=== PATIENT | female | born 1940 | race Caucasian/White ===

== ENCOUNTER → 2017-09-19 13:11 | Outpatient (CLI) | payer MEDICARE, BC, SELFPAY ==
--- NOTE | 2017-09-19 | DI.MG.S_ITS ---
BILATERAL DIGITAL SCREENING MAMMOGRAM 3D/2D WITH CAD: 09/19/2017 CLINICAL: Routine screening. Comparison is made to exams dated: 09/02/2016 mammogram, 09/02/2015 mammogram, and 05/16/2014 mammogram - [facility]. The tissue of both breasts is heterogeneously dense. This may lower the sensitivity of mammography. Current study was also evaluated with a Computer Aided Detection (CAD) system. There is a calcification in the left breast at 8 o'clock anterior depth. No other significant masses, calcifications, or other findings are seen in either breast. IMPRESSION: INCOMPLETE: NEEDS ADDITIONAL IMAGING EVALUATION The calcification in the left breast is indeterminate. Mediolateral, spot magnification, and additional views are recommended. This exam was interpreted at Station ID: [id number]. NOTE: For mammograms, a report in lay terms will be sent to the patient. Approximately 15% of breast malignancies will not be visualized mammographically. In the management of a palpable breast mass, a negative mammogram must not discourage biopsy of a clinically suspicious lesion. Electronically Signed By: Jt hanna/abel:09/19/2017 15:01:20 copy to: Brina Coulter letter sent: Additional Imaging Needed ACR BI-RADS Category 0: Incomplete [id number]
== END ==
PROVIDERS: Family Provider Internal Medicine; PCP Internal Medicine; Visit Provider Physician Assistant
DX: Z12.31 Encounter for screening mammogram for malignant neoplasm of breast (principal); R92.8 Other abnormal and inconclusive findings on diagnostic imaging of breast
CPT/HCPCS: 77063; 77067

== ENCOUNTER → 2017-09-30 08:42 | Outpatient (CLI) | payer MEDICARE, BC, SELFPAY ==
--- NOTE | 2017-09-30 | DI.MG.S_ITS ---
UNILATERAL LEFT DIGITAL DIAGNOSTIC MAMMOGRAM 3D/2D WITH ADDITIONAL VIEWS: 09/30/2017 CLINICAL: Additional evaluation requested from prior study. Comparison is made to exams dated: 09/19/2017 mammogram, 09/02/2016 mammogram, and 09/02/2015 mammogram - [facility]. The tissue of the left breast is heterogeneously dense. This may lower the sensitivity of mammography. Prior calcifications in the left breast are no longer present. No significant masses, calcifications, or other findings are seen in the breast. IMPRESSION: NEGATIVE There is no mammographic evidence of malignancy. A 1 year screening mammogram is recommended. This exam was interpreted at Station ID: [id number]. NOTE: For mammograms, a report in lay terms will be sent to the patient. Approximately 15% of breast malignancies will not be visualized mammographically. In the management of a palpable breast mass, a negative mammogram must not discourage biopsy of a clinically suspicious lesion. Electronically Signed By: Josue moya/abel:09/30/2017 12:31:42 copy to: Brina Coulter letter sent: Normal Exam ACR BI-RADS Category 1: Negative [id number]
== END ==
PROVIDERS: Family Provider Internal Medicine; PCP Internal Medicine; Visit Provider Physician Assistant
DX: R92.1 Mammographic calcification found on diagnostic imaging of breast (principal)
CPT/HCPCS: 77065; G0279

== ENCOUNTER 2017-12-19 23:52 | Observation (INO) | payer MEDICARE, BC, SELFPAY ==
[2017-12-19 23:55] VITALS: BP 178/89; PULSE 89; RESP 20; TEMP 36.4; O2SAT 98
[2017-12-20] VITALS (7 sets, daily range): BP systolic 119–155; BP diastolic 62–83; PULSE 73–80; RESP 15–22; TEMP 36.6–37.4; O2SAT 95–99; BMI 22.1
--- NOTE | 2017-12-20 | DI.MRI.S_ITS ---
PROCEDURE: MR ANGIO HEAD WO CON INDICATIONS: Syncope TECHNIQUE: Noncontrast axial 3-D [id number] MR angiogram, with 3-dimensional maximum intensity projection (MIP) reformats of the internal carotid arteries and posterior circulation then performed. COMPARISON: None. FINDINGS: Image quality: Excellent. Anterior circulation: Intracranial internal carotid arteries demonstrate normal size and intraluminal flow signal. The flow within the paired anterior cerebral arteries is normal and symmetric. The flow within the middle cerebral arteries is normal and symmetric. The anterior communicating artery is seen. No stenoses, occlusions, or aneurysms. Posterior circulation: Visualized portions of the vertebral arteries demonstrate normal caliber, and join to form a normal appearing basilar artery. The flow within the posterior cerebral arteries is normal and symmetric. No stenoses, occlusions, or aneurysms. IMPRESSION: Negative cerebral MR angiography. Dictated by: Froy Uribe M.D. on 12/20/2017 at 11:43 Approved by: Froy Uribe M.D. on 12/20/2017 at 11:45
--- NOTE | 2017-12-20 | DI.MRI.S_ITS ---
PROCEDURE: MR ANGIO NECK W CON INDICATIONS: Syncope TECHNIQUE: Axial and sagittal TruFISP through the neck. Coronal dynamic MRA after the administration of contrast in the arterial and venous phases, with rotating 3-dimensional maximum intensity projection (MIP) reformats constructed from subtraction images. COMPARISON: None. FINDINGS: Image quality: Excellent. Carotid system: Great vessels demonstrate a conventional anatomy as they arise from the aortic arch. The origins of the common carotid arteries appear normal. The calibers and courses of the common carotid arteries are likewise normal. The carotid bifurcations appear normal bilaterally. The internal carotid arteries are widely patent up to the [place]. Posterior circulation: The origins of the vertebral arteries are unremarkable. The more superior portions of the vertebral arteries demonstrate normal course and caliber. Vertebral arteries join to form a normal appearing basilar artery. Miscellaneous: Subclavian arteries are patent throughout. Pre-contrast images through the neck demonstrate no soft tissue abnormalities. IMPRESSION: 1. No internal carotid artery stenosis bilaterally. 2. Patent bilateral vertebral arteries. Any quantitative measurements of stenosis were performed using NASCET criteria. Dictated by: Froy Uribe M.D. on 12/20/2017 at 11:45 Approved by: Froy Uribe M.D. on 12/20/2017 at 11:46
--- NOTE | 2017-12-20 | DI.RAD.S_ITS ---
PROCEDURE: XR CHEST 1V INDICATIONS: syncope TECHNIQUE: One view of the chest was acquired. COMPARISON: [facility], , CHEST 1 VIEW, 04/30/2016, 18:15. [facility], CR, CHEST 1 VIEW, 04/27/2016, 4:20. [facility], CT, THORAX WITH CONTRAST, 09/26/2015, 9:16. [facility], , CHEST 1 VIEW, 09/04/2015, 10:35. FINDINGS: Surgical changes and devices: None. Lungs and pleura: No pleural effusions or pneumothorax. Lungs are clear. Mediastinum: Mediastinal contours appear normal. Heart size is normal. Bones and chest wall: No suspicious bony lesions. Overlying soft tissues appear unremarkable. IMPRESSION: No acute cardiopulmonary disease process. Dictated by: Francesca Lloyd MD, PhD on 12/20/2017 at 9:07 Approved by: Francesca Lloyd MD, PhD on 12/20/2017 at 9:10
--- NOTE | 2017-12-20 | DI.CT.S_ITS ---
PROCEDURE: CT HEAD/BRAIN WO CON INDICATIONS: head injury, + etoh, persistent nausea, headache TECHNIQUE: Noncontrast 4.5 mm thick angled axial sections acquired from the foramen magnum to the vertex, with coronal and sagittal reformats. For radiation dose reduction, the following was used: automated exposure control, adjustment of mA and/or kV according to patient size. COMPARISON: None. FINDINGS: Image quality: Excellent. CSF spaces: Basal cisterns are patent. No extra-axial fluid collections. The ventricles are symmetric in size and shape. Brain: No intracranial bleeds or masses. There is cerebral volume loss for age, with resultant ventricular and sulcal prominence. There are periventricular and deep white matter chronic small vessel ischemic changes. There is intracranial internal carotid artery atherosclerosis. Skull and face: Calvarium and visualized facial bones appear intact, without suspicious lesions. Large right parietal occipital scalp hematoma noted. Sinuses: Visualized sinuses and mastoids are clear. IMPRESSION: No acute intracranial disease process. Dictated by: Francesca Lloyd MD, PhD on 12/20/2017 at 7:43 Approved by: Francesca Lloyd MD, PhD on 12/20/2017 at 7:45
--- NOTE | 2017-12-20 00:05 | ED.SYNCOPE ---
HPI - Syncope General Chief Complaint: Syncope Stated Complaint: Syncope in shower/ Hit head Time Seen by Provider: 12/20/17 00:00 Source: patient, family and EMS Mode of arrival: EMS Limitations: no limitations History of Present Illness HPI narrative: A 77-year-old female presents to the emergency department by EMS for evaluation of an unprovoked syncopal episode in the absence of a postictal phase just prior to her arrival. The patient felt completely fine all day and was taking a shower, she felt a bit funny and called for help and then woke up laying on the ground. Her states she was unconscious for approximately 1 min. As stated she had no postictal phase and complained only of occipital headache after striking her head on the ground. She denies blurry vision, trouble with speech or focal neurologic findings such as numbness, tingling or weakness. She denies any midline neck pain or distracting injuries. She denies use of blood thinners and had 1 alcoholic beverage earlier in the day. She did have 1 similar episode of near syncope about 1 year ago with an unremarkable evaluation MD complaint: loss of consciousness Onset (ago): minute(s) Duration of episode: 1 -: minutes(s) Prodromal symptoms: lightheaded Witnessed: yes - by bystander Injuries sustained associated with event: head Current symptoms: other (dizziness) History: previous syncopal episode Treatments prior to arrival: IV fluids Related Data Home Medications Medication Instructions Recorded Confirmed [THYROXINE] 25 mcg PO QDAY #0 06/08/17 acyclovir 400 mg PO QDAY #0 06/08/17 Previous Rx's Medication Instructions Recorded lisinopril [Prinivil] 20 mg PO QDAY #90 02/08/12 estradiol [Estrace] 1 gm VAGINAL Q DAY #1 tube 03/05/16 estradiol [Vagifem] 10 mcg VAGINAL SEE INSTRUCTIONS 03/05/16 #30 tab escitalopram oxalate [Lexapro] 10 mg PO QDAY #30 tab 04/29/16 ondansetron 4 mg SUBLINGUAL Q4HP PRN #30 odt 04/29/16 alprazolam 0 mg PO Q12HP PRN #10 tab 04/30/16 pantoprazole [Protonix] 40 mg PO QDAY #30 tab 04/30/16 clobetasol 1 sarahy TOPICAL QAM #30 gm 07/21/16 acyclovir 400 mg PO BID #180 tab 06/13/17 Allergies Allergy/AdvReac Type Severity Reaction Status Date / Time codeine [CODEINE] Allergy Unknown NAUSEA Unverified 08/10/17 11:53 Penicillins [PENICILLINS] Allergy Unknown ITCH Unverified 08/10/17 11:53 Review of Systems Review of Systems All systems reviewed & are unremarkable except as noted in HPI and below Constitutional Denies chills, Denies fever(s), Reports headache(s), Denies lethargy and Denies weakness Eyes Denies change in vision, Denies eye discharge, Denies irritation and Denies loss of vision ENT Ears, Nose, Mouth, and Throat: Denies change in voice, Reports headache(s), Denies neck pain and Denies sore throat Cardiovascular Denies chest pain, Reports syncope, Denies irregular heart rhythm, Reports lightheadedness, Denies palpitations, Denies dyspnea, Denies dyspnea on exertion and Denies orthopnea Respiratory Denies cough, Denies dyspnea, Denies dyspnea on exertion and Denies wheezing Gastrointestinal Gastrointestinal: Denies abdominal pain, Denies change in bowel habits, Denies diarrhea, Denies nausea and Denies vomiting Genitourinary Denies hematuria, Denies flank pain, Denies urinary incontinence and Denies urinary urgency Musculoskeletal Denies neck pain Integumentary/Breasts Denies pruritus, Denies erythema, Denies rash and Denies wounds Neurologic Denies confusion, Reports syncope, Reports headache(s), Denies loss of vision and Denies weakness Psychiatric Denies anxiety, Denies confusion, Denies depression, Denies homicidal ideation and Denies suicidal ideation Endocrine Denies palpitations Hematologic/Lymphatic Denies easy bruising Allergic/Immunologic Denies wheezing Exam Initial Vital Signs Initial Vital Signs: Vital Signs Temperature 97.5 F L 12/19/17 23:55 Pulse Rate 89 12/19/17 23:55 Respiratory Rate 20 12/19/17 23:55 Blood Pressure 178/89 H 12/19/17 23:55 Pulse Oximetry 98 12/19/17 23:55 Const General: cooperative and well developed Nutritional Appearance: well nourished Orientation: alert, awake, oriented x3 and not confused HENMT Head: hematoma Ears: external ears normal and TM's normal bilaterally Nose: external nose normal and No nasal discharge Face and sinus: sinuses nontender, face symmetric, no sinus tenderness and No dry mucous membranes Mouth: oral mucosae normal and moist mucous membranes Teeth and gingiva: dentition normal Throat: tonsils normal and uvula midline Eyes General: appearance normal, both eyes and all related structures Eyelids: eyelids normal Conjunctivae: conjunctivae normal Sclera: sclerae normal Pupils: PERRL EOM: EOM intact bilaterally Neck Neck: normal visual inspection, trachea midline, No lymphadenopathy, No midline deformity and No JVD Lymphatic: No lymphedema Chest Chest: normal inspection of the chest Resp Effort & Inspection: normal respiratory effort, able to speak in complete sentences, no respiratory distress and no use of accessory muscles Auscultation: clear to auscultation bilaterally, no rales, no rhonchi and no wheezes Cardio Rate: regular rate Rhythm: regular rhythm Heart Sounds: no click, no gallops, no murmurs and no rubs Pulses: normal peripheral pulses GI Inspection: non-distended Palpation: soft, no hepatosplenomegaly, No guarding, No pulsatile mass and No tender Auscultation: normal bowel sounds Back/Spine/Pelvis Back: No CVA tenderness Cervical Spine: cervical ROM normal and No pain with cervical ROM Thoracic/Lumbar Spine: thoracic and lumbar spine normal to inspection Skin General: no rashes or lesions noted, No jaundice and No petechiae Neuro General: alert, oriented x3, gait normal and no focal motor deficits Speech: speech normal Extrem General: full ROM, no clubbing, cyanosis or edema, no pedal edema and no calf tenderness Psych Appearance: well kempt Mental Status: mental status grossly normal Attitude: cooperative Thought Content: normal and suicidality Judgment: judgment good Course Decision to Admit Date: 12/20/17 Decision to Admit time: 00:11 Orders Ordered: ED Orders 12/20/17 EKG-12 Lead Routine 12/20/17 00:00 CT head/brain wo con Stat XR chest 1V Stat EKG-12 Lead Stat 12/20/17 00:16 Complete Blood Count AUTO DIFF Stat Comprehensive Metabolic Panel Stat Magnesium Stat Prolactin Stat Troponin & CK Cardiac Panel Stat Discontinued Medications Acetaminophen (Tylenol) 650 mg PO NOW ONE Stop: 12/20/17 00:42 Last Admin: 12/20/17 00:43 Dose: 650 mg Sodium Chloride (Normal Saline 0.9%) 1,000 mls @ 1,000 mls/hr IV BOLUS ONE Stop: 12/20/17 00:59 Last Admin: 12/20/17 00:43 Dose: 1,000 mls/hr Vital Signs - 8 hr 12/19/17 23:55 Temperature 97.5 F L Pulse Rate 89 Respiratory Rate 20 Blood Pressure 178/89 H Pulse Oximetry 98 MDM - Syncope Differential Diagnosis Likely syncope due to orthostatic hypotension, vasovagal syncope, complete atrioventricular block, subarachnoid hemorrhage, pulmonary embolism and dehydration Medical Records Attestation: I reviewed the patient's medical records. Lab Data Attestation: I reviewed the patient's lab results. Result diagrams: 12/20/17 00:16 12/20/17 00:16 Lab Results 12/20/17 12/20/17 Range/Units 00:16 00:16 WBC 8.3 (4.5-11.0) X10^3/uL RBC 3.90 L (4.0-5.2) X10^6/uL Hgb 12.9 (12.0-16.0) g/dL Hct 38.3 (36-46) % MCV 98.0 (80-100) fL MCH 33.2 (26-34) PG MCHC 33.8 (30-36) % RDW 14.3 (11.6-14.8) % Plt Count 197 (150-400) X10^3/uL Neut % (Auto) 62.2 (50-75) % Lymph % (Auto) 26.9 (25-40) % [place] % (Auto) 7.6 (3-14) % Eos % (Auto) 2.5 (2-4) % Baso % (Auto) 0.8 (0-2) % Neut # (Auto) 5200 (3221-4457) /uL Sodium 138 (137-145) mmol/L Potassium 3.8 (3.4-5.1) mmol/L Chloride 99 (98-107) mmol/L Carbon Dioxide 29 (22-32) mmol/L BUN 16 (7-17) mg/dL Creatinine 0.90 (0.52-1.04) mg/dL Estimated GFR > 60.0 (>60) mL/min BUN/Creatinine Ratio 17.8 (6-22) Glucose 108 (80-110) mg/dL Calcium 9.4 (8.4-10.2) mg/dL Magnesium 2.0 (1.6-2.3) mg/dL Total Bilirubin 0.5 (0.2-1.3) mg/dL AST 35 (14-36) IU/L ALT 27 (9-52) IU/L Alkaline Phosphatase 95 (38-126) U/L Total Creatine Kinase 66 (30-135) U/L Troponin I < 0.012 (0.01-0.034) ng/mL Total Protein 8.1 (6.3-8.2) g/dL Albumin 4.5 (3.5-5.0) g/dL Globulin 3.6 (1.7-4.1) g/dL Albumin/Globulin Ratio 1.3 (1.0-2.8) Prolactin 28.8 H (3.0-18.6) ng/mL Imaging Data CT scan - head: Radiologist's impression: Scalp hematoma ECG Data Interpretation: NSR, no ST segmental elevation or T wave inversions to suggest ischemia Discharge Plan Departure Patient Disposition: Admitted as Observation Clinical Impression: Syncope Discharge Date/Time: 12/20/17 01:43 Admit Date/Time: 12/20/17 01:41 Admit Provider: Junior Buck
--- NOTE | 2017-12-20 00:19 | PC.NURSE ---
Pt reports during shower tonight felt faint, called for help, reports she collapsed upon his arrival, hit back of head, was out for a few minutes, on arrival to ED pt is alert/oriented, c/o posterior head pain, denies neck pain, no midline tenderness on exam, denies cp/soa/visual changes/nausea/numbness/tingling/or recent illness, NSR on monitor, skin tear to lt wrist dressed with telfa/coban
[2017-12-20 00:25] LABS: Add Manual Diff / Slide Review NO; Basophils Percent Auto 0.8 % (0-2); Eosinophils Percent Auto 2.5 % (2-4); Hematocrit 38.3 % (36-46); Hemoglobin 12.9 g/dL (12.0-16.0); Lymphocytes Percent Auto 26.9 % (25-40); Mean Corpuscular HGB Conc 33.8 % (30-36); Mean Corpuscular Hemoglobin 33.2 PG (26-34); Monocytes Percent Auto 7.6 % (3-14); Neutrophils Absolute Auto 5200 /uL (3000-5900); Neutrophils Percent Auto 62.2 % (50-75); Platelet Count 197 X10^3/uL (150-400); Red Cell Distribution Width 14.3 % (11.6-14.8); White Blood Cell Count 8.3 X10^3/uL (4.5-11.0)
[2017-12-20 00:33] LABS: Alanine Aminotransferase 27 IU/L (9-52); Albumin 4.5 g/dL (3.5-5.0); Albumin Globulin Ratio 1.3 (1.0-2.8); Alkaline Phosphatase 95 U/L (38-126); Aspartate Aminotransferase 35 IU/L (14-36); BUN Creatinine Ratio 17.8 (6-22); Bilirubin Total 0.5 mg/dL (0.2-1.3); Blood Urea Nitrogen 16 mg/dL (7-17); Calcium 9.4 mg/dL (8.4-10.2); Carbon Dioxide 29 mmol/L (22-32); Chloride 99 mmol/L (98-107); Creatine Kinase 66 U/L (30-135); Estimated Glomerular Filt Rate > 60.0 mL/min (>60); Globulin 3.6 g/dL (1.7-4.1); Glucose 108 mg/dL (80-110); HEMOLYSIS < 15 (0-50); Potassium 3.8 mmol/L (3.4-5.1); Sodium 138 mmol/L (137-145); Total Protein 8.1 g/dL (6.3-8.2)
[2017-12-20] MEDS: ACETAMINOPHEN 325 MG TABLET 650 MG PO ×2 (00:43→15:44)
[2017-12-20] MEDS: SODIUM CHLORIDE 0.9% 1,000 ML 1000 ML IV (00:43)
[2017-12-20 00:46] LABS: Troponin I < 0.012 ng/mL (0.01-0.034)
[2017-12-20 00:50] LABS: Prolactin 28.8 ng/mL (3.0-18.6)
--- NOTE | 2017-12-20 02:48 | P.HP_ITS ---
History of Present Illness Date Patient Seen: 12/20/17 Time Patient Seen: 01:15 Chief complaint: Syncope in shower/ Hit head Narrative: This is a 70-year-old female presented to the hospital after syncopal event approximately 1 hr prior to her arrival. Patient reports being in her usual state of health and while taking shower, sudden passed out and woke up lying on the ground with feeling of nausea and inability to get up unassisted. She believes that she may have hit back of her head, but denied biting her tongue, having voluntarily urination, vision or speech changes. She was able to call her for help and subsequently was brought to our hospital. Patient had similar event approximately 1 year ago, [place] airport experiencing near syncope requiring evaluation by paramedics who found her blood pressure being significantly elevated?. Subsequently she was cleared for the flight and upon arrival home per referral of PCP underwent Holter monitoring which presumably showed some ectopy ( skipped beats requiring use of oral metoprolol. Liver no new or recent changes in her medications, habits, also stressful events in the live. In retrospect, she acknowledged having strange sensation prior to this event yesterday as of she was going to faint, which was transient and resolved upon resting on the sofa. She admitted having 1 alcoholic beverage last night. Initial exam and testing in ED was significant for elderly female patient looking younger than the stated age. Her initial vital signs was significant for hypertension in excess of 170s systolic. Her general clinical exam was unremarkable, except for small possible hematoma on the back of her head, with stable sinus rhythm on clinical exam, telemetry and EKG which did not reveal any reason, a rate abnormalities. There were no signs to suggest cardiac ischemia as well. Her basic clinical lab were all within the normal range. Head CT was significant for scalp hematoma. Patient was admitted for further management to acute care unit on telemetry by hospitalist team. Patient History Medical History Depression with anxiety (Acute) GERD (gastroesophageal reflux disease) (Acute) History of hysterectomy (Acute) Hx of syncope (Acute) Hypertension (Acute) Hypothyroidism (Acute) Family & Social History Family History: Reviewed 12/20/17 by Junior Buck MD Social History: , lives independently with his Safety & Behavioral: Feels safe at home Tobacco & Substance use: Denies history of smoking, alcohol abuse or illicit drug use Meds Home Medications Medication Instructions Recorded Confirmed Type lisinopril [Prinivil] 20 mg PO QDAY #90 02/08/12 Rx estradiol [Estrace] 1 gm VAGINAL Q DAY #1 tube 03/05/16 Rx estradiol [Vagifem] 10 mcg VAGINAL SEE INSTRUCTIONS 03/05/16 Rx #30 tab escitalopram oxalate [Lexapro] 10 mg PO QDAY #30 tab 04/29/16 Rx ondansetron 4 mg SUBLINGUAL Q4HP PRN #30 odt 04/29/16 Rx alprazolam 0 mg PO Q12HP PRN #10 tab 04/30/16 Rx pantoprazole [Protonix] 40 mg PO QDAY #30 tab 04/30/16 Rx clobetasol 1 sarahy TOPICAL QAM #30 gm 07/21/16 Rx [THYROXINE] 25 mcg PO QDAY #0 06/08/17 History acyclovir 400 mg PO QDAY #0 06/08/17 History acyclovir 400 mg PO BID #180 tab 06/13/17 Rx Allergies Allergy/AdvReac Type Severity Reaction Status Date / Time codeine [CODEINE] Allergy Unknown NAUSEA Unverified 08/10/17 11:53 Penicillins [PENICILLINS] Allergy Unknown ITCH Unverified 08/10/17 11:53 Review of Systems Review of Systems All systems reviewed & are unremarkable except as noted in HPI and below Exam Vital Signs (past 8 hours): - 12/19/17 23:55 Temperature 97.5 F L Pulse Rate 89 Respiratory Rate 20 Blood Pressure 178/89 H Pulse Oximetry 98 Oxygen Delivery Method Room Air Narrative Exam Narrative: Constitutional: Well-nourished well-developed female looking younger than the stated age in mild distress. She is alert and oriented x3. HEENT: Unremarkable exam except for a small scalp hematoma on the back of her head Eyes: EOMI, PERRLA Neck: Supple, no lymphadenopathy, no jugular venous distention, no bruits on auscultation of the carotid arteries. Cardiovascular: Regular rhythm rate, no discernible murmurs Pulmonary: Clear to auscultation bilaterally, no rales ,no wheezing Abdomen: Soft, nontender, nondistended, bowel sounds present. No discernible organomegaly Extremities: Warm to touch, no edema Neurological: No focal neurological symptoms from cranial nerves 2-12 detected. Patient appears to be grossly neurologically intact. Skin: No skin rashes, no lesions. Objective Labs Result Diagrams: 12/20/17 00:16 12/20/17 00:16 Labs: Laboratory Results - last 24 hr 12/20/17 12/20/17 00:16 00:16 WBC 8.3 RBC 3.90 L Hgb 12.9 Hct 38.3 MCV 98.0 MCH 33.2 MCHC 33.8 RDW 14.3 Plt Count 197 Neut % (Auto) 62.2 Lymph % (Auto) 26.9 [place] % (Auto) 7.6 Eos % (Auto) 2.5 Baso % (Auto) 0.8 Neut # (Auto) 5200 Sodium 138 Potassium 3.8 Chloride 99 Carbon Dioxide 29 BUN 16 Creatinine 0.90 Estimated GFR > 60.0 BUN/Creatinine Ratio 17.8 Glucose 108 Calcium 9.4 Magnesium 2.0 Total Bilirubin 0.5 AST 35 ALT 27 Alkaline Phosphatase 95 Total Creatine Kinase 66 Troponin I < 0.012 Total Protein 8.1 Albumin 4.5 Globulin 3.6 Albumin/Globulin Ratio 1.3 Prolactin 28.8 H Assessment & Plan Plan: Assessment/Plan Narrative: 1. Syncope: Unclear etiology, with high level of suspicion for possible cardiogenic cause . Patient reports similar event approximately a year ago Which was significant for elevated blood pressure on the field, detection of ? skipped beats? on Holter monitoring x3 days, which required treatment with metoprolol (currently off). Medication induced syncope is also under consideration. Her current medications include lisinopril which could cause profound hypertension with subsequent syncope especially while taking hot shower. The Xanax known to cause seizures and syncopal events. Lexapro known to prolong QT interval, causes seizures and dizziness. Admit patient for observation to ACU unit on telemetry. Request echocardiogram , carotid Doppler, head MRI, EEG. Patient might need to be considered for repeat Holter monitoring or dizziness loop recorder implantation. Hold treatment with Lexapro and Xanax for now, restart lisinopril at low dose. 2. Hypertension: With elevated blood pressure readings during this encounter. Management as above. 3. Hypothyroidism: Restart treatment with Levoxyl at outpatient dose 4. Depression/anxiety: As above, hold outpatient treatment with Lexapro and Xanax. 5. GI prophylaxis: Proton pump inhibitors p.o. 6. DVT prophylaxis: Lovenox SC 7. Code status: Patient is a full code. Time Spent With Patient Time with patient: 25 - 35 minutes
[2017-12-20] MEDS: SODIUM CHLORIDE 0.9% 1,000 ML 100 ML IV (03:03)
[2017-12-20 04:48] LABS: Add Manual Diff / Slide Review NO; Basophils Percent Auto 0.4 % (0-2); Eosinophils Percent Auto 0.3 % (2-4); Hematocrit 37.7 % (36-46); Hemoglobin 12.7 g/dL (12.0-16.0); Lymphocytes Percent Auto 9.8 % (25-40); Mean Corpuscular HGB Conc 33.6 % (30-36); Mean Corpuscular Hemoglobin 32.8 PG (26-34); Mean Corpuscular Volume 97.7 fL (80-100); Monocytes Percent Auto 5.3 % (3-14); Neutrophils Absolute Auto 8800 /uL (3000-5900); Neutrophils Percent Auto 84.2 % (50-75); Platelet Count 182 X10^3/uL (150-400); Red Blood Cell Count 3.86 X10^6/uL (4.0-5.2); Red Cell Distribution Width 14.3 % (11.6-14.8); White Blood Cell Count 10.5 X10^3/uL (4.5-11.0)
[2017-12-20 04:49] LABS: Prothrombin Time 10.7 SECONDS (10.1-12.7)
[2017-12-20 04:53] LABS: Alanine Aminotransferase 19 IU/L (9-52); Albumin Globulin Ratio 1.2 (1.0-2.8); Alkaline Phosphatase 76 U/L (38-126); Aspartate Aminotransferase 32 IU/L (14-36); BUN Creatinine Ratio 17.5 (6-22); Bilirubin Total 0.5 mg/dL (0.2-1.3); Blood Urea Nitrogen 14 mg/dL (7-17); Calcium 8.9 mg/dL (8.4-10.2); Carbon Dioxide 27 mmol/L (22-32); Chloride 104 mmol/L (98-107); Estimated Glomerular Filt Rate > 60.0 mL/min (>60); Globulin 3.4 g/dL (1.7-4.1); Glucose 128 mg/dL (80-110); Potassium 4.1 mmol/L (3.4-5.1); Sodium 140 mmol/L (137-145); Total Protein 7.4 g/dL (6.3-8.2)
[2017-12-20] MEDS: PANTOPRAZOLE 20 MG TABLET PO (06:47)
[2017-12-20 06:50] LABS: Cholesterol 205 mg/dL (140-199); HDL Cholesterol 71 mg/dL (40-60); HEMOLYSIS 19 (0-50); LDL Cholesterol Calculated 117 mg/dL (<100); Triglycerides 85 mg/dL (35-150)
[2017-12-20 06:53] LABS: Troponin I < 0.012 ng/mL (0.01-0.034)
[2017-12-20] MEDS: ENOXAPARIN 40 MG/0.4 ML SYRINGE SUBCUT (09:55)
[2017-12-20] MEDS: LEVOTHYROXINE 25 MCG TABLET PO (09:55)
--- NOTE | 2017-12-20 11:53 | PT.IIE ---
Medical History (Last Updated 12/20/17 @ 02:35 by Junior Buck MD) Depression with anxiety (Acute) GERD (gastroesophageal reflux disease) (Acute) History of hysterectomy (Acute) Hx of syncope (Acute) Hypertension (Acute) Hypothyroidism (Acute) Physical Therapy Inpatient Evaluation/Re-Eval M1 PT/OT-IP Prior Functional Status Start: 12/20/17 12:05 Freq: NEEDED Status: Active Protocol: Document 12/20/17 11:53 DLM (Rec: 12/20/17 12:17 DL [id number]) Medical Review Prior Functional Status Medical History Reviewed Yes Diet/Fluid Consistency Regular Communication WNL, wears glasses to read Mobility and Gait Independent without device, community distances Activities of Daily Living and IADL's Independent Prior Functional Level (Other details) takes precautions to prevent falls Social History Household Members significant other Living Arrangements House Number of Floors (Floors) Two Floors Number of Stairs To Enter/Railing? 0 to enter Home Environment Standard Height Toilet Walk in Shower Employment Status Retired Additional Social History Comment stays mostly on the main floor of home, does not have to go to lower level. M2 PT-IP Current Condition Start: 12/20/17 12:05 Freq: NEEDED Status: Active Protocol: Document 12/20/17 11:53 DLM (Rec: 12/20/17 12:17 DL [id number]) Physical Therapy Current Condition Current Condition Evaluation Date 12/20/17 Treatment Diagnosis decreased balance, dizziness Onset Date 12/20/17 Precautions Other Precautions hx of syncope or near syncope with diagnosis of anxiety per pt report M3 PT-IP Subjective Start: 12/20/17 12:05 Freq: NEEDED Status: Active Protocol: Document 12/20/17 11:53 DLM (Rec: 12/20/17 12:17 DL [id number]) Subjective Physical Therapy Visit Type Type Initial Evaluation Visit Start Time 11:25 Visit Stop Time 11:53 Total Visit Minutes [address]ER Visits 0 Physical Therapy Visit Comments Patient Comments She feels like she will be safe at home with her S.O. there to help her. Short Term Goals return home at discharge Therapy Pain Assessment Pain When Pain Assessed At Rest Pain Present Pain Present Pain Reported Location Head Intensity 3 Scale Used Numeric (1 - 10) Description Aching M4 PT-IP Mobility and Gait Start: 12/20/17 12:05 Freq: NEEDED Status: Active Protocol: Document 12/20/17 11:53 DLM (Rec: 12/20/17 12:17 [facility] [id number]) PT-Bed Mobility Assessment Rolling Type of Rolling Bilateral Level of Assist Independent Supine to Sit Supine to Sit Independent Sit to Supine Sit to Supine Independent Scooting Scooting to Edge of Bed Independent Scooting Up and Down in Bed Independent PT-Transfer Assessment Sit to and From Stand Sit to and from Stand Independent Equipment Transfer Assistive Device None Transfers Transfer Destination Bed Transfer Technique Stand Step Pivot Transfer Ability Level of Assist Standby Assistance Use of Upper Extremities Comments Mobility Comments pt reports feeling a little shakey today Gait Assessment Gait Gait Assistance Required: Standby Assistance Distance (Feet) (feet) 250 Assistive Devices Assistive Device None Comments Gait Comments mild unsteadiness during gait but no losses of balance, pt is cautious PT-Balance Assessment Sitting Balance and Reactions Static Sitting Balance Ability Normal Dynamic Sitting Balance Ability Normal Standing Balance and Reactions Static Standing Balance Ability Good Dynamic Standing Balance Ability Good Device Used none Balance Tests Romberg Independent, more steady with eyes closed than eyes ope Functional Reach Test Independent without difficulty Tandem Standing she reports she can not do this at baseline Comments Other Balance Tests/Deviations/Treatment no losses of balance during : gait with head motions nor with distractions, pt does not feel she needs an assistive device M5 PT-IP Objective Assessments Start: 12/20/17 12:05 Freq: NEEDED Status: Active Protocol: Document 12/20/17 11:53 DLM (Rec: 12/20/17 12:17 [facility] [id number]) Orientation Orientation/Cognition Level of Alertness Alert Orientation Name Age Birthday Month Date Year Day of Week Place Situation Language Function Ability No Deficits Noted Safety Awareness Understands Safety Issues Memory Description No Deficits Noted Gross Range of Motion Upper Extremity ROM Assessment Within Functional Limits Lower Extremity ROM Assessment Within Functional Limits Strength Upper Extremity Strength Assessment Within Functional Limits Lower Extremity Strength Assessment Within Functional Limits Hip right hip flexion 4+/5 with muscle soreness reported post fall Coordination Assessment Gross Coordination Gross Coordination WNL Sensation Assessment Sensation Gross Sensation WNL Muscle Tone Muscle Tone WNL Yes M7 PT-IP Assessment and Plan Start: 12/20/17 12:05 Freq: NEEDED Status: Active Protocol: Document 12/20/17 11:53 DLM (Rec: 12/20/17 12:17 [place] [id number]) PT Summary Assessment and Plan Potential Rehabilitation Potential Good Status of Condition at Evaluation Evolving Summary Progress Towards Goals Safe For Discharge Assessment Summary She appears to be close to her baseline at this time. She demonstrated a safe gait pattern without a device. Pt describes feeling a little shakey today following events at home. She has a supportive S.O. to assist her at home as needed. She appears safe to discharge home at this time. No further skilled Physical Therapy needed at this time. Frequency of Treatment Frequency Of Treatment Discharge Treatment Plan Other Recommendations and Next Treatment discharge Focus Recommendations To Nursing Amount of Assist Needed Standby Assistance Discharge Recommendations PT Discharge Recommendations Home with Assistance Equipment Needed for Home Before none Discharge
--- NOTE | 2017-12-20 12:16 | PM.CN ---
History of Present Illness Date Patient Seen: 12/20/17 Time Patient Seen: 12:17 Chief complaint: Syncope in shower/ Hit head Reason for consult: Syncope Requesting provider: Junior Buck Narrative: The patient is a 77-year-old female without any previous cardiac history except for a history of intermittent brief palpitations and an episode of near-syncope when traveling through an airport in [place] 2016. She did not pass out and paramedics were called and apparently told her that she had high blood pressure. Her symptoms abated and when she returned home, she had an echocardiogram that showed normal left and right ventricular function with an ejection fraction of 60 to 65% and a PAP of 30 mmHg and a CVP of 3 mmHg and [id number] mitral and tricuspid regurgitation. She was noted to have frequent PACs during the study. A myocardial perfusion stress test was obtained and she initially was stressed on the treadmill although had to be converted to a pharmacologic study because of described presyncope despite a normal heart rate and blood pressure. She again had frequent PACs but no complex ectopy. She had normal perfusion without evidence of ischemia or previous infarction and an ejection fraction of 81%. Apparently, a subsequent Holter exam showed occasional ?skipped beats? but no malignant arrhythmias and she was treated with metoprolol but this failed to produce any significant improvement in her palpitations and her metoprolol was stopped. Her palpitations subsequently resolved with improvement in her anxiety. She subsequently has felt well until yesterday when she was doing some yard work and noted some mild dyspnea with that she attributed to the smoky environment. She otherwise felt well and was taking a shower yesterday evening when she noted the onset of profound lightheadedness, culminating in a syncopal episode with loss of consciousness for around 1 min, hitting her head. She denies any antecedent palpitations, dyspnea, or chest discomfort. When she awoke, she generally felt well except for a scalp injury. She was seen in the emergency room and was noted to have a blood pressure of 179/89 with a normal ECG and normal laboratory including a potassium at 3.8 and a normal troponin. She was admitted and has not had any further episodes and telemetry has continued to show sinus rhythm. She reports being active at home and denies any chest discomfort, lightheadedness, or dyspnea. She has no pedal edema. She has noted intermittent episodes of brief lightheadedness just lasting a few seconds without any presyncope. These have generally occur 1 to 2 times every 3 months without any clear worsening of the frequency. She reports her home blood pressures have generally been in the 150 dash 165 range. Her cardiac risk factors include history of hypertension and hyperlipidemia with a total cholesterol of 205 with an HDL of 71 and an LDL of 117. She denies any history of smoking or diabetes. There is no family history of any heart disease. She generally drinks 1 alcoholic beverage 4 times a week. 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 [facility] Medical History Depression with anxiety (Acute) GERD (gastroesophageal reflux disease) (Acute) History of hysterectomy (Acute) Hx of syncope (Acute) Hypertension (Acute) Hypothyroidism (Acute) Social History household members: significant other Smoking Status: Never smoker Meds Home Medications Medication Instructions Recorded Confirmed Type lisinopril [Prinivil] 20 mg PO QDAY #90 02/08/12 12/20/17 Rx clobetasol 1 sarahy TOPICAL QAM #30 gm 07/21/16 12/20/17 Rx acyclovir 400 mg PO QDAY #0 06/08/17 12/20/17 History levothyroxine 25 mcg PO QDAY #0 06/08/17 12/20/17 History atorvastatin 10 mg PO DAILY 12/20/17 12/20/17 History escitalopram oxalate 20 mg PO DAILY 12/20/17 12/20/17 History estradiol [Estrace] 1 g VAGINAL 2XW 12/20/17 12/20/17 History omeprazole 40 mg PO DAILY 12/20/17 12/20/17 History Allergies Allergy/AdvReac Type Severity Reaction Status Date / Time Penicillins [PENICILLINS] Allergy Severe ITCH Unverified 12/20/17 03:31 codeine [CODEINE] Allergy Mild NAUSEA Unverified 12/20/17 03:31 Review of Systems Review of Systems A complete review of systems is performed and is unremarkable except for occasional episodes of unexplained flushing. She denies any cough for hemoptysis. She has had no GI blood loss. She denies any stroke-like symptoms. Exam Vital Signs (past 8 hours): - 12/20/17 07:33 12/20/17 07:45 Temperature 98 F Pulse Rate 73 Respiratory Rate 15 Blood Pressure 155/83 H Pulse Oximetry 99 96 Oxygen Delivery Method Room Air Oxygen Flow Rate 0 Const General: cooperative, healthy appearing, comfortable and other (Younger than stated age) [facility] Head: normal to inspection Eyes EOM: EOM intact bilaterally Direct ophthalmoscopy: other Other: No arcus Chest Chest: normal inspection of the chest Other: Clear to auscultation and percussion without any rales or wheeze Cardio Other: Regular rate and rhythm normal S1 and S2 without any appreciable murmurs, gallops, rubs. There is no JVD. Carotid and femoral pulses are 2+ bilaterally with a normal upstroke without bruit. Dorsalis pedis pulses 1+ bilaterally and posterior tibial pulses are 2+ bilaterally. GI Other: Soft, nondistended nontender without palpable masses or hepatosplenomegaly. Skin Other: Warm and dry Neuro Other: Grossly intact without any obvious focal deficits Extrem Other: Warm without any clubbing, cyanosis, or edema Psych Other: Awake alert and oriented. Objective Labs Result Diagrams: 12/20/17 04:10 12/20/17 04:10 Labs: Laboratory Results - last 24 hr 12/20/17 12/20/17 12/20/17 00:16 00:16 02:40 WBC 8.3 RBC 3.90 L Hgb 12.9 Hct 38.3 MCV 98.0 MCH 33.2 MCHC 33.8 RDW 14.3 Plt Count 197 Neut % (Auto) 62.2 Lymph % (Auto) 26.9 Weber % (Auto) 7.6 Eos % (Auto) 2.5 Baso % (Auto) 0.8 Neut # (Auto) 5200 PT INR Sodium 138 Potassium 3.8 Chloride 99 Carbon Dioxide 29 BUN 16 Creatinine 0.90 Estimated GFR > 60.0 BUN/Creatinine Ratio 17.8 Glucose 108 Calcium 9.4 Magnesium 2.0 Total Bilirubin 0.5 AST 35 ALT 27 Alkaline Phosphatase 95 Total Creatine Kinase 66 Troponin I < 0.012 Total Protein 8.1 Albumin 4.5 Globulin 3.6 Albumin/Globulin Ratio 1.3 Triglycerides Cholesterol LDL Cholesterol, Calc HDL Cholesterol Prolactin 28.8 H Nasal Screen MRSA (PCR) Negative for mrsa 12/20/17 12/20/17 12/20/17 04:10 04:10 04:10 WBC 10.5 RBC 3.86 L Hgb 12.7 Hct 37.7 MCV 97.7 MCH 32.8 MCHC 33.6 RDW 14.3 Plt Count 182 Neut % (Auto) 84.2 H D Lymph % (Auto) 9.8 L Weber % (Auto) 5.3 Eos % (Auto) 0.3 L Baso % (Auto) 0.4 Neut # (Auto) 8800 H PT 10.7 INR 1.0 Sodium 140 Potassium 4.1 Chloride 104 Carbon Dioxide 27 BUN 14 Creatinine 0.80 Estimated GFR > 60.0 BUN/Creatinine Ratio 17.5 Glucose 128 H Calcium 8.9 Magnesium Total Bilirubin 0.5 AST 32 ALT 19 Alkaline Phosphatase 76 Total Creatine Kinase Troponin I Total Protein 7.4 Albumin 4.0 Globulin 3.4 Albumin/Globulin Ratio 1.2 Triglycerides 85 Cholesterol 205 H LDL Cholesterol, Calc 117 H HDL Cholesterol 71 H Prolactin Nasal Screen MRSA (PCR) 12/20/17 04:10 WBC RBC Hgb Hct MCV MCH MCHC RDW Plt Count Neut % (Auto) Lymph % (Auto) Weber % (Auto) Eos % (Auto) Baso % (Auto) Neut # (Auto) PT INR Sodium Potassium Chloride Carbon Dioxide BUN Creatinine Estimated GFR BUN/Creatinine Ratio Glucose Calcium Magnesium Total Bilirubin AST ALT Alkaline Phosphatase Total Creatine Kinase Troponin I < 0.012 Total Protein Albumin Globulin Albumin/Globulin Ratio Triglycerides Cholesterol LDL Cholesterol, Calc HDL Cholesterol Prolactin Nasal Screen MRSA (PCR) Assessment & Plan Plan: Assessment/Plan Narrative: 1. Syncope. The cause of her syncopal episode remains unclear by current evaluation. There are some components of her history that are concerning for possible cardiac arrhythmia although she has demonstrated none here. At this point, I would check a TSH to ensure that her thyroid is adequately replaced and obtain an echocardiogram to reassess valvular and ventricular function. If these are benign, then I suspect she can be discharged with a 30 day event monitor in an attempt to capture one of her lightheaded spells. If this demonstrates no concerning arrhythmias during her spells, then I suspect this is more likely a vasovagal reaction. If no events are captured and she has recurrent syncopal episodes, an implantable loop recorder could be pursued. In this event, she should be referred to Dr. Pantoja for further evaluation. 2. Hypertension. If she continues to have significant hypertension, low-dose beta blockade could be considered. 3. Hypothyroidism. As above, I would check a TSH to make sure she is adequately replaced. 4. Anxiety. 5. Hyperlipidemia. Her LDL is slightly elevated. For primary prevention, dietary modification should be pursued and her LDL continues to be elevated, consideration should be given to statin therapy. 6. Intermittent flushing. This does not appear to be a predominant feature of her presentation but does raise a possible question of carcinoid. An echocardiogram will be obtained to assess for this. Laboratory exam for serotonin and5-HIAA could be considered if flushing becomes more prominent feature of her symptoms. Plan: 1. Obtain an echocardiogram. 2. Continue to monitor on telemetry. 3. Check a TSH 4. If above is benign, discharge the patient with a 30 day event monitor. 5. If she has recurrent syncopal episodes, consider referral to Dr. Pantoja for an implantable loop recorder. 6. Address her hypertension and hyperlipidemia as an outpatient. 7. Consider evaluation for carcinoid if her flushing becomes a predominant feature of her presentation. I spent a total of 1 hr and 25 min reviewing the patient's medical record, interviewing and examining the patient, answered her questions and documenting. Time Spent With Patient Time with patient: Greater than 35 minutes
--- NOTE | 2017-12-20 13:00 | DI.ECHO.S_ITS ---
[facility]---------+ [facility] +---------+ : : [address] : : : : [id number] : : : : Phone: [phone]+ Echocardiogram Report + + :Name: JABARI FOSTER Study Date: 12/20/2017 Height: 65 in : :[facility] Weight: 133 lb : : Gender: Female BSA: 1.7 m2 : :: 1940 Age: 77 yrs BP: 153/78 mmHg: :Reason For Study: Syncope : :Ordering Physician: Ernesto : :Hospitalist Performed By: Coretta Beckwith : :Referring: DEIDRA POE : + + Interpretation Summary The left ventricle is normal in size, wall thickness, and systolic function without any focal wall motion abnormalities with the ejection fraction visually estimated to be 65-70%. Assessment of diastolic parameters indicates a relaxation abnormality of the left ventricle, consistent with normal filling pressures. There has been no significant change since the previous study. The right ventricle is normal in size and function and appears unchanged compared to the previous study. Pulmonary artery pressures cannot be estimated because of the lack of a measurable TR jet velocity but the IVC suggests a low right atrial pressure of 3 mm Hg, which is unchanged from the previous exam. Both atria are normal in size and both have mildly decreased in size since the prior echo exam. There is mild mitral regurgitation and trace tricuspid regurgitation and both are less prominent compared to the previous study. There is mild pulmonic regurgitation that was not well seen on the previous study. There is no other significant valvular heart disease. Procedure: A two-dimensional transthoracic echocardiogram with color flow and Doppler was performed. The study quality was technically adequate. Comparison is made with the echocardiogram of 04/27/2016. The patient was in normal sinus rhythm during the exam. Left Ventricle: The left ventricle is normal in size, wall thickness, and systolic function without any focal wall motion abnormalities. The ejection fraction is estimated to be 65-70%. Assessment of diastolic parameters indicates a relaxation abnormality of the left ventricle, consistent with normal filling pressures. There has been no significant change since the previous study. Right Ventricle: The right ventricle is normal in size and function. This is unchanged compared to the previous study. Atria: Both atria are normal in size. Both atria have mildly decreased in size since the prior echo exam. There is no Doppler evidence for an interatrial shunt. Mitral Valve: The mitral valve is normal in structure and function. The mitral valve leaflets appear normal. There is no evidence of stenosis, fluttering, or prolapse. There is mild mitral regurgitation. This is less prominent compared to the previous study. Aortic Valve: The aortic valve is trileaflet. The aortic valve opens well. No aortic regurgitation is present. Tricuspid Valve: The tricuspid valve is normal in structure and function. There is trace tricuspid regurgitation. This is less prominent compared to the previous study. Pulmonary artery pressures cannot be estimated because of the lack of a measurable TR jet velocity. Pulmonic Valve: The pulmonic valve is not well seen, but is grossly normal. There is mild pulmonic regurgitation. There is no other significant valvular heart disease. Great Vessels: The aortic root is normal size. The ascending aorta is normal in size. The aortic arch is normal in size. This is unchanged compared to the previous study. The IVC is of normal diameter and collapses greater than 50% with a sniff. This suggests a low right atrial pressure of 3 mm Hg. Pericardium/ Pleura There is no pericardial effusion. MMode/2D Measurements & Calculations LVIDd: 4.1 cm LVOT diam: 1.9 cm LVIDs: 2.5 cm Ao root diam: 2.8 cm FS: 39.6 % Aortic Jxn: 2.2 cm EPSS: 0.37 cm asc Aorta Diam: 2.8 cm IVSd: 0.88 cm Ao Arch Diam (Prox Trans): 2.8 cm LVPWd: 0.96 cm LV [place]. diameter/BSA (cm/m^2): 2.4 LV sys. diameter/BSA (cm/m^2): 1.5 LA A2 area: 12.2 cm2 RA long axis: 4.1 cm LA A4 area: 13.3 cm2 RA area: 11.8 cm2 LA length (vol): 3.8 cm RA vol: 28.9 ml LA vol: 36.0 ml RA : 17.4 ml/m2 LA vol index: 21.6 ml/m2 IVC diam: 1.5 cm RVD1 (basal): 2.9 cm RVD2 (mid): 2.2 cm Doppler Measurements & Calculations Ao V2 max: 116.8 cm/sec LVOT Max Filipe: 100.7 cm/sec Ao V2 mean: 79.4 cm/sec LV V1 max P.1 mmHg Ao max P.5 mmHg LV V1 VTI: 20.0 cm Ao mean P.9 mmHg PRIMO(I,D): 2.6 cm2 Ao V2 VTI: 22.9 cm PRIMO(V,D): 2.5 cm2 sev ratio: 0.87 PRIMO indexed to BSA (cm^2/m^2): 1.5 MV E max filipe: 76.6 cm/sec PA V2 max: 74.2 cm/sec MV A max filipe: 105.6 cm/sec PA V2 mean: 49.9 cm/sec MV E/A: 0.73 PA mean P.1 mmHg Med Peak E' Filipe: 6.0 cm/sec PA Accel Time: 0.11 sec E/E' med: 12.8 Lat Peak E' Filipe: 8.3 cm/sec E/E' lat: 9.2 E/e' average: 11.0 MV dec time: 0.18 sec MV P1/2t: 51.9 msec MV P1/2t max filipe: 77.4 cm/sec MVA(P1/2t): 4.2 cm2 Reading Physician:RYAN
[2017-12-20 13:50] LABS: TSH w/ Reflex to FT4 2.78 uIU/mL (0.47-4.68)
--- NOTE | 2017-12-20 14:02 | PC.NURSE ---
Pt has remained AAO x3. C/o mild dizziness and lightheadedness that gets worse with movement. Her gait is steady despite these complaints. She has remained in NSR with rates 70s-80s. Pt was seen by Dr. Chilel with cardiology. Echocardiogram to be done approx 1500. Per Dr. Buck, pt may potentially d/c to home today with further outpatient work up per cardiology recommendations.
--- NOTE | 2017-12-20 14:12 | OT.IP.EVAL ---
Past Medical History (Last Updated 12/20/17 @ 02:35 by Junior Buck MD) Depression with anxiety (Acute) GERD (gastroesophageal reflux disease) (Acute) History of hysterectomy (Acute) Hx of syncope (Acute) Hypertension (Acute) Hypothyroidism (Acute) Occupational Therapy Inpatient Evaluation/Re-Eval M1 PT/OT-IP Prior Functional Status Start: 12/20/17 12:05 Freq: NEEDED Status: Active Protocol: Document 12/20/17 14:12 PJ (Rec: 12/20/17 14:48 [facility] [id number]) Medical Review Prior Functional Status Medical History Reviewed Yes Diet/Fluid Consistency Regular Communication WNL, wears glasses to read Mobility and Gait Independent without device, community distances Activities of Daily Living and IADL's Independent with all self care . 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 Prior Functional Level (Other details) takes precautions to prevent falls Social History Household Members significant other Living Arrangements House Number of Floors (Floors) Two Floors Number of Stairs To Enter/Railing? 0 to enter Home Environment Standard Height Toilet Walk in Shower Employment Status Retired Additional Social History Comment stays mostly on the main floor of home, does not have to go to lower level. Shower stall has small built in corner seat . M2 OT-IP Current Condition Start: 12/20/17 14:34 Freq: Status: Active Protocol: Document 12/20/17 14:12 PJM (Rec: 12/20/17 14:48 [facility] [id number]) Occupational Therapy Current Condition Current Condition Evaluation Date 12/20/17 Treatment Diagnosis assess ability to return home s/p syncopal episode with blow to head Post Operative Precautions Other Precautions hx of syncope or near syncope with diagnosis of anxiety per pt report M3 OT- IP Subjective and Pain Start: 12/20/17 14:34 Freq: Status: Active Protocol: Document 12/20/17 14:12 PJM (Rec: 12/20/17 14:48 [facility] [id number]) OT- Subjective Occupational Therapy Visit Type Type Initial Evaluation Visit Start Time 13:40 Visit Stop Time 14:12 Total Visit Minutes 32 Occupational Therapy Visit Comments Patient Comments It feels really good to take a shower. Patient/Caregiver Goals figure out why I fainted, go home OT Pain Assessment Pain When Pain Assessed After Treatment Pain Present Pain Present Denied Pain M4 OT- IP ADL's Start: 12/20/17 14:34 Freq: Status: Active Protocol: Document 12/20/17 14:12 PJ (Rec: 12/20/17 14:48 [facility] [id number]) OT MPN-Tyoi-Jrxjavd General Evaluation Self-Feeding Ability Independent OT ADL-Grooming General Evaluation Grooming Ability Independent Comments OT Grooming Comments standing at sink OT ADL-Oral Care General Eval Oral Care Ability Independent Comments Oral Care Comments standing at sink OT ADL-Dressing General Eval Upper Body Dressing Ability Independent Lower Body Dressing Ability Independent OT ADL-Toileting General Evaluation Toileting Ability Independent OT ADL-Bathing General Evaluation Bathing Ability Standby Assistance Comments OT Bathing Comments Pt fearful of falling again and requesting SBA for shower: You are not going to leave me alone, are you? No c/o dizziness and no LOB noted with standing shower. Pt states her S.O. will provide SBA for showering at home. M5 OT- IP IADL's Start: 12/20/17 14:34 Freq: Status: Active Protocol: Document 12/20/17 14:12 PJ (Rec: 12/20/17 14:48 [facility] [id number]) OT-Instrumental Activities of Daily Living Deficits IADL Deficits Identified No Deficits Home Safety Awareness Awareness of Need for Assistance at Home Good Awareness Ability to Problem Solve Emergency Able to Problem Solve Situations Medication Management Medication Management No Deficits Identified Money Management Money Management No Deficits Identified Meal Preparation Meal Preparation Caregiver Provides Assist Meal Preparation Comments S.O. can assist PRN if pt fatigued Ice Sculptor Ice Sculptor Caregiver Provides Assist Ice Sculptor Comments S.O. can assist PRN if pt fatigued Driving Driving Caregiver Provides Assist Driving Comments S.O. to assist until MD approves pt return to driving M6 OT- IP Functional Cognition Start: 12/20/17 14:34 Freq: Status: Active Protocol: Document 12/20/17 14:12 PJ (Rec: 12/20/17 14:48 [facility] [id number]) Cognitive Factors Limiting Selfcare Function Cognitive Ability Level of Alertness Alert Patient Orientation Name Ability to Follow Commands Able to Follow One Step Commands Able to Follow Multi-Step Commands Memory Description No Deficits Noted Safety Awareness No Deficits Noted Problem Solving Ability No deficits Noted Executive Function Ability No Deficits Noted Cognitive Comments Cognitive Assessment Comments Pt functional cognitive deficits identified. Pt appears to be at baseline. OT- Vision and Hearing OT- Hearing Assessment OT- Hearing Assessment WFL OT- Vision Assessment Visual Acuity WFL Glasses For Reading M7 OT- IP Mobility and Balance Start: 12/20/17 14:34 Freq: Status: Active Protocol: Document 12/20/17 14:12 PJM (Rec: 12/20/17 14:48 [facility] [id number]) OT- Bed Mobility Assessment Rolling Type of Rolling Roll to Left Level of Assistance Independent Supine to Sit Supine to Sit Assist Independent Scooting Scooting to Edge of Bed Independent OT-Transfer Assessment Sit to and From Stand Sit to and from Stand Independent Transfers Transfer Ability Independent Technique Transfer Destination Chair Shower Stall Toilet Transfer Technique Stand Step Pivot Devices Transfer Assistive Devices None OT- Gait Assessment Gait Gait Assistance Required: Independent Assistive Devices Assistive Device None Comments Gait Ability Comments Pt tends to furniture walk, no LOB noted without a device. PT has cleared pt for independent ambulation. OT- Balance Assessment Sitting Balance and Reactions Static Sitting Balance Ability Normal Dynamic Sitting Balance Ability Normal Standing Balance and Reactions Static Standing Balance Ability Normal Dynamic Standing Balance Ability Normal Comments Other Balance Tests/Deviations/Treatment No LOB noted during standing : shower and standing to pull pants over hips. M8 OT- IP Objective Assessments Start: 12/20/17 14:34 Freq: Status: Active Protocol: Document 12/20/17 14:12 PJM (Rec: 12/20/17 14:48 [facility] [id number]) OT Gross Range of Motion Upper Extremity Range of Motion Assessment Within Functional Limits OT Strength Upper Extremity Strength Assessment Within Functional Limits OT- Coordination Assessment Comments Coordination Comments BUE WNL OT-Muscle Tone Assessment Muscle Tone WNL Yes OT Sensation Assessment Comments Summary Comments BUE WNL Edema Edema Absent M9 OT- IP Assessment and Plan Start: 12/20/17 14:34 Freq: Status: Active Protocol: Document 12/20/17 14:12 PJM (Rec: 12/20/17 14:48 [facility] [id number]) OT Summary Assessment and Plan Potential Analytic Complexity at Evaluation Low Summary Assessment Summary Low complexity OT assessment completed. No deficits identified in vision, cognition, BUE sensorimotor function, or self care skills. No OT goals identified for this admission. Anticipate pt will discharge home with assist from S.O. for IADLs PRN and he will provide SBA for showering PRN. Recommend pt not drive until MD approves. Frequency of Treatment Frequency Of Treatment Discharge Treatment Plan Other Treatment Recommendations and Next No OT services needed. Treatment Focus Discharge Recommendations OT Discharge Recommendations Home
--- NOTE | 2017-12-20 17:58 | P.DS_ITS ---
History of Present Illness Date Patient Seen: 12/20/17 Time Patient Seen: 08:00 Chief complaint: Syncope in shower/ Hit head Narrative: This is a 70-year-old female presented to the hospital after syncopal event approximately 1 hr prior to her arrival. Patient reports being in her usual state of health and while taking shower, sudden passed out and woke up lying on the ground with feeling of nausea and inability to get up unassisted. She believes that she may have hit back of her head, but denied biting her tongue, having involuntarily urination, vision or speech changes. She was able to call her for help and subsequently was brought to our hospital. Patient had similar event approximately 1 year ago, while [place] airport experiencing near syncope requiring evaluation by paramedics who found her blood pressure being significantly elevated?. Subsequently she was cleared for the flight and upon arrival home per referral of PCP underwent Holter monitoring which presumably showed some ectopy ( skipped beats requiring use of oral metoprolol). There were no new or recent changes in her medications, habits, also stressful events in the live. In retrospect, she acknowledged having strange sensation prior to this event yesterday as of she was going to faint, which was transient and resolved upon resting on the sofa. She admitted having 1 alcoholic beverage last night. Initial exam and testing in ED was significant for elderly female patient looking younger than the stated age. Her initial vital signs was significant for hypertension in excess of 170s systolic. Her general clinical exam was unremarkable, except for small possible hematoma on the back of her head, with stable sinus rhythm on clinical exam, telemetry and EKG which did not reveal any reason, a rate abnormalities. There were no signs to suggest cardiac ischemia as well. Her basic clinical lab were all within the normal range. Head CT was significant for scalp hematoma. Discharge Providers Date of admission: 12/20/17 01:41 Primary care physician: Deepti Carranza MD Consults: 12/20/17 02:14 Consult to Occupational Therapy Evaluate & Treat Comment: Physician Instructions: Evaluate and treat Consult to Physical Therapy Evaluate & Treat Comment: Physician Instructions: Evaluate and Treat Discharge provider: Junior Buck MD Summary Discharge Diagnosis: 1. Syncope: recurrent event of unclear etiology, with high level of suspicion for possible cardiogenic cause . Seen by , cardiology : The cause of her syncopal episode remains unclear by current evaluation. There are some components of her history that are concerning for possible cardiac arrhythmia although she has demonstrated none here. At this point, I would check a TSH to ensure that her thyroid is adequately replaced and obtain an echocardiogram to reassess valvular and ventricular function. If these are benign, then I suspect she can be discharged with a 30 day event monitor in an attempt to capture one of her lightheaded spells. If this demonstrates no concerning arrhythmias during her spells, then I suspect this is more likely a vasovagal reaction. If no events are captured and she has recurrent syncopal episodes, an implantable loop recorder could be pursued. In this event, she should be referred to Dr. Pantoja for further evaluation. 2. Hypertension: With elevated blood pressure readings during this encounter. Restarted tx with lisinopril at outpatient dose, contunue dose adjustement of BP meds for optimnal control. 3. Hypothyroidism: Restart treatment with Levoxyl at outpatient dose 4. Depression/anxiety: As above, hold outpatient treatment with Lexapro and Xanax Hospital Course: This is a 70-year-old female presented to the hospital after syncopal event approximately 1 hr prior to her arrival. Patient reports being in her usual state of health and while taking shower, sudden passed out and woke up lying on the ground with feeling of nausea and inability to get up unassisted. This is a recurrent event is similar episode in 2016. Studies conducted at that time showed normal left and right ventricular function with an ejection fraction of 60 to 65% and a PAP of 30 mmHg and a CVP of 3 mmHg and ceor-wd-hcnionbb mitral and tricuspid regurgitation. She was noted to have frequent PACs during the study. A myocardial perfusion stress test was obtained and she initially was stressed on the treadmill although had to be converted to a pharmacologic study because of described presyncope despite a normal heart rate and blood pressure. She had normal perfusion without evidence of ischemia or previous infarction and an ejection fraction of 81%. A subsequent Holter exam showed occasional ?skipped beats? but no malignant arrhythmias and she was treated with metoprolol but this failed to produce any significant improvement in her palpitations and her metoprolol was stopped. The cause of her syncopal episode remains unclear by current evaluation. recommended 30 day event monitor in an attempt to capture one of her lightheaded spells. If this demonstrates no concerning arrhythmias during her spells, then I suspect this is more likely a vasovagal reaction. If no events are captured and she has recurrent syncopal episodes, an implantable loop recorder could be pursued. In this event, she should be referred to Dr. Pantoja for further evaluation. Status at Discharge Functional status at discharge: independent ambulation Overall status at discharge: patient is progressing back to baseline Time Spent with Patient Greater than 30 minutes Exam Vital Signs (past 8 hours): - 12/20/17 12:32 12/20/17 15:26 Temperature 99.4 F 97.9 F Pulse Rate 80 75 Respiratory Rate 16 19 Blood Pressure 151/75 H 153/78 H Pulse Oximetry 95 Oxygen Delivery Method Room Air Oxygen Flow Rate 0 Narrative Exam Narrative: Constitutional: Well-nourished well-developed female looking younger than the stated age in NAD. She is alert and oriented x3. HEENT: Unremarkable exam except for a small scalp hematoma on the back of her head Eyes: EOMI, PERRLA Neck: Supple, no lymphadenopathy, no jugular venous distention, no bruits on auscultation of the carotid arteries. Cardiovascular: Regular rhythm rate, no discernible murmurs Pulmonary: Clear to auscultation bilaterally, no rales ,no wheezing Abdomen: Soft, nontender, nondistended, bowel sounds present. No discernible organomegaly Extremities: Warm to touch, no edema Neurological: No focal neurological symptoms from cranial nerves 2-12 detected. Patient appears to be grossly neurologically intact. Skin: No skin rashes, no lesions. Objective Imaging echocardiogram: Radiologist's impression: Interpretation Summary The left ventricle is normal in size, wall thickness, and systolic function without any focal wall motion abnormalities with the ejection fraction visually estimated to be 65-70%. Assessment of diastolic parameters indicates a relaxation abnormality of the left ventricle, consistent with normal filling pressures. There has been no significant change since the previous study. The right ventricle is normal in size and function and appears unchanged compared to the previous study. Pulmonary artery pressures cannot be estimated because of the lack of a measurable TR jet velocity but the IVC suggests a low right atrial pressure of 3 mm Hg, which is unchanged from the previous exam. Both atria are normal in size and both have mildly decreased in size since the prior echo exam. There is mild mitral regurgitation and trace tricuspid regurgitation and both are less prominent compared to the previous study. There is mild pulmonic regurgitation that was not well seen on the previous study. There is no other significant valvular heart disease. MRI - head: Radiologist's impression: 1. No internal carotid artery stenosis bilaterally. 2. Patent bilateral vertebral arteries. 3.Negative cerebral MR angiography. Dictated by: Froy Uribe M.D. on 12/20/2017 at 11:43 Approved by: Froy Uribe M.D. on 12/20/2017 at 11 Labs Result Diagrams: 12/20/17 04:10 12/20/17 04:10 Labs: Laboratory Results - last 24 hr 12/20/17 12/20/17 12/20/17 00:16 00:16 02:40 WBC 8.3 RBC 3.90 L Hgb 12.9 Hct 38.3 MCV 98.0 MCH 33.2 MCHC 33.8 RDW 14.3 Plt Count 197 Neut % (Auto) 62.2 Lymph % (Auto) 26.9 [place] % (Auto) 7.6 Eos % (Auto) 2.5 Baso % (Auto) 0.8 Neut # (Auto) 5200 PT INR Sodium 138 Potassium 3.8 Chloride 99 Carbon Dioxide 29 BUN 16 Creatinine 0.90 Estimated GFR > 60.0 BUN/Creatinine Ratio 17.8 Glucose 108 Calcium 9.4 Magnesium 2.0 Total Bilirubin 0.5 AST 35 ALT 27 Alkaline Phosphatase 95 Total Creatine Kinase 66 Troponin I < 0.012 Total Protein 8.1 Albumin 4.5 Globulin 3.6 Albumin/Globulin Ratio 1.3 Triglycerides Cholesterol LDL Cholesterol, Calc HDL Cholesterol TSH Prolactin 28.8 H Nasal Screen MRSA (PCR) Negative for mrsa 12/20/17 12/20/17 12/20/17 04:10 04:10 04:10 WBC 10.5 RBC 3.86 L Hgb 12.7 Hct 37.7 MCV 97.7 MCH 32.8 MCHC 33.6 RDW 14.3 Plt Count 182 Neut % (Auto) 84.2 H D Lymph % (Auto) 9.8 L [place] % (Auto) 5.3 Eos % (Auto) 0.3 L Baso % (Auto) 0.4 Neut # (Auto) 8800 H PT 10.7 INR 1.0 Sodium 140 Potassium 4.1 Chloride 104 Carbon Dioxide 27 BUN 14 Creatinine 0.80 Estimated GFR > 60.0 BUN/Creatinine Ratio 17.5 Glucose 128 H Calcium 8.9 Magnesium Total Bilirubin 0.5 AST 32 ALT 19 Alkaline Phosphatase 76 Total Creatine Kinase Troponin I Total Protein 7.4 Albumin 4.0 Globulin 3.4 Albumin/Globulin Ratio 1.2 Triglycerides 85 Cholesterol 205 H LDL Cholesterol, Calc 117 H HDL Cholesterol 71 H TSH Prolactin Nasal Screen MRSA (PCR) 12/20/17 12/20/17 04:10 13:01 WBC RBC Hgb Hct MCV MCH MCHC RDW Plt Count Neut % (Auto) Lymph % (Auto) [place] % (Auto) Eos % (Auto) Baso % (Auto) Neut # (Auto) PT INR Sodium Potassium Chloride Carbon Dioxide BUN Creatinine Estimated GFR BUN/Creatinine Ratio Glucose Calcium Magnesium Total Bilirubin AST ALT Alkaline Phosphatase Total Creatine Kinase Troponin I < 0.012 Total Protein Albumin Globulin Albumin/Globulin Ratio Triglycerides Cholesterol LDL Cholesterol, Calc HDL Cholesterol TSH 2.78 Prolactin Nasal Screen MRSA (PCR) Discharge Plan Discharge Plan Patient Disposition: Home Discharge comment: Arnaldo/raudel with Dr. Chilel next week Provider Discharge Instructions Diet: Diet as Tolerated Activity: as tolerated Discharge Data Primary Care Provider: Deepti Carranza Attending Provider: Junior Buck Admit Date/Time: 12/20/17 01:41 Quality VTE Deep Vein Thrombosis/Pulmonary Embolism Present on Admission: Yes
--- NOTE | 2017-12-20 18:52 | PC.NURSE ---
1845- Discharge instruction given. Patient and SO verbalize understanding. Patient iv dc'd and tele box removed. Patient wheeled out to waiting car via wheelchair. Patient stable at the time of discharge.
--- NOTE | 2017-12-21 10:01 | CM.DANOTE ---
Addendum entered by Ros Mcdonald LPN 12/21/17 10:09: A check in this morning shows that pt was able to d/c home yesterday after workup and with outpt followup. Original Note: Discharge Planning/Care Management DCP: assessment: Late Entry for 12/20: 0900 Case received, EMR reviewed and met with pt at 0900. Introduced self and role. Pt is a 77 year old female who admitted to care of hospitalist team rouge mixer 12/20: 0141 PCP: Dr. Beatriz Carranza Payer: [facility] and [facility] [place] Pt states she had an event in the shower where she felt faint and then woke up on floor of shower. She remembers calling for Harvey and by time he got to the bathroom she was just rousing. She notes she still feels a bit fuzzy. Discussed case in Team Rounds: 929. Dr. Muniz planned to consult with Dr. Ramirez/cardiology and go from there. P: check in later as more is known to assist with any d/c needs that may arise. CM Discharge Assessment Start: 12/21/17 09:55 Freq: Status: Active Protocol: Document 12/21/17 09:56 ITV (Rec: 12/21/17 10:01 ITV [id number]) Discharge Planning Assessment Advance Directives? 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 Yes Comment pt was in process of a workup and cardiology consultation and if deemed stable the plan was for home. Whiteboard Updated in Patient Room with Yes name and ext. # of Cloth Mercerizing Supervisor Review Status In Process Next Review Type Continued Stay Review
== END 2017-12-20 18:52 | disposition home or self-care (01) ==
LOC: ED 12-20 01:16 → ICU 12-20 01:42
PROVIDERS: Admitting Provider Hospitalist; Emergency Provider Emergency Medicine; Family Provider Internal Medicine; PCP Internal Medicine; Visit Provider Hospitalist
DX: R55 Syncope and collapse (principal); W18.2XXA Fall in (into) shower or empty bathtub, initial encounter; R42 Dizziness and giddiness; F41.9 Anxiety disorder, unspecified; F32.9 Major depressive disorder, single episode, unspecified; K21.9 Gastro-esophageal reflux disease without esophagitis; I10 Essential (primary) hypertension; E03.9 Hypothyroidism, unspecified
CPT/HCPCS: 36415; 36591; 70450; 70546; 70548; 71045; 80053; 80061; 81003; 82550; 82553; 82962; 83735; 84146; 84443; 84484; 85025; 85610; 87797; 93005; 93010; 93306; 96360; 97162; 97165; 99283; 99285; G0378; J1650

== ENCOUNTER → 2018-02-24 10:03 | Outpatient (CLI) | payer MEDICARE, BC, SELFPAY ==
[2017-12-20 02:36] VITALS: BMI 22.1
== END ==
PROVIDERS: Family Provider Internal Medicine; PCP Internal Medicine; Visit Provider Physician Assistant
DX: M81.0 Age-related osteoporosis without current pathological fracture (principal); Z78.0 Asymptomatic menopausal state; Z82.62 Family history of osteoporosis; Z90.722 Acquired absence of ovaries, bilateral
CPT/HCPCS: 77080

== ENCOUNTER → 2018-03-15 11:27 | Outpatient (CLI) | payer MEDICARE, BC, SELFPAY ==
[2017-12-20 02:36] VITALS: BMI 22.1
[2018-03-15 12:38] LABS: Add Manual Diff / Slide Review NO; Basophils Percent Auto 0.4 % (0-2); Eosinophils Percent Auto 0.8 % (2-4); Hematocrit 40.6 % (36-46); Hemoglobin 13.6 g/dL (12.0-16.0); Mean Corpuscular HGB Conc 33.6 % (30-36); Mean Corpuscular Hemoglobin 32.8 PG (26-34); Mean Corpuscular Volume 97.7 fL (80-100); Neutrophils Absolute Auto 3800 /uL (3000-5900); Neutrophils Percent Auto 60.8 % (50-75); Platelet Count 189 X10^3/uL (150-400); Red Blood Cell Count 4.15 X10^6/uL (4.0-5.2); Red Cell Distribution Width 13.3 % (11.6-14.8); White Blood Cell Count 6.2 X10^3/uL (4.5-11.0)
[2018-03-15 13:44] LABS: Vitamin D 25 Hydroxy (D3) 37.6 ng/mL (30.0-100.0)
[2018-03-15 13:58] LABS: Thyroid Stimulating Hormone 2.66 uIU/mL (0.47-4.68)
[2018-03-15 16:16] LABS: Alanine Aminotransferase 17 IU/L (9-52); Albumin 4.4 g/dL (3.5-5.0); Albumin Globulin Ratio 1.3 (1.0-2.8); Alkaline Phosphatase 76 U/L (38-126); Aspartate Aminotransferase 31 IU/L (14-36); BUN Creatinine Ratio 13.8 (6-22); Bilirubin Total 0.6 mg/dL (0.2-1.3); Blood Urea Nitrogen 11 mg/dL (7-17); Calcium 8.9 mg/dL (8.4-10.2); Carbon Dioxide 30 mmol/L (22-32); Chloride 98 mmol/L (98-107); Cholesterol 205 mg/dL (140-199); Estimated Glomerular Filt Rate > 60.0 mL/min (>60); Globulin 3.5 g/dL (1.7-4.1); Glucose 90 mg/dL (80-110); HDL Cholesterol 81 mg/dL (40-60); HEMOLYSIS < 15 (0-50); LDL Cholesterol Calculated 100 mg/dL (<100); Potassium 4.1 mmol/L (3.4-5.1); Sodium 138 mmol/L (137-145); Total Protein 7.9 g/dL (6.3-8.2); Triglycerides 121 mg/dL (35-150)
== END ==
PROVIDERS: PCP Physician Assistant; Visit Provider Physician Assistant
DX: M81.0 Age-related osteoporosis without current pathological fracture (principal); K21.9 Gastro-esophageal reflux disease without esophagitis; E03.9 Hypothyroidism, unspecified; I10 Essential (primary) hypertension; E78.00 Pure hypercholesterolemia, unspecified
CPT/HCPCS: 36415; 80053; 80061; 82306; 84443; 85025

== ENCOUNTER → 2018-05-30 10:17 | Outpatient (CLI) | payer MEDICARE, BC, SELFPAY ==
[2017-12-20 02:36] VITALS: BMI 22.1
--- NOTE | 2018-05-30 | DI.RAD.S_ITS ---
PROCEDURE: XR CHEST 2V INDICATIONS: COUGH, SHORTNESS OF BREATH TECHNIQUE: 2 views of the chest were acquired. COMPARISON: [facility], CT, THORAX WITH CONTRAST, 09/26/2015, 9:16. [facility], CR, CHEST 1 VIEW, 04/27/2016, 4:20. [facility], CR, CHEST 1 VIEW, 04/30/2016, 18:15. [facility], , XR CHEST 1V, 12/19/2017, 23:40. FINDINGS: Surgical changes and devices: None. Lungs and pleura: Hyperinflation consistent with COPD. Biapical scars. No pleural effusions or pneumothorax. Mediastinum: Mediastinal contours are normal. Heart size is normal. Bones and chest wall: No suspicious bony abnormalities. Soft tissues appear unremarkable. IMPRESSION: No acute cardiopulmonary disease. COPD and biapical scars. Dictated by: Anamika Silveira M.D. on 05/30/2018 at 11:08 Approved by: Anamika Silveira M.D. on 05/30/2018 at 11:11
== END ==
PROVIDERS: Family Provider Internal Medicine; PCP Physician Assistant; Visit Provider Physician Assistant
DX: R05 Cough (principal); R06.02 Shortness of breath; J44.9 Chronic obstructive pulmonary disease, unspecified; J98.4 Other disorders of lung
CPT/HCPCS: 71046

== ENCOUNTER → 2018-10-30 13:53 | Outpatient (CLI) | payer MEDICARE, BC, SELFPAY ==
[2017-12-20 02:36] VITALS: BMI 22.1
--- NOTE | 2018-10-30 13:56 | DI.MG.S_ITS ---
BILATERAL DIGITAL SCREENING MAMMOGRAM 3D/2D WITH CAD: 10/30/2018 CLINICAL: Routine screening. Comparison is made to exams dated: 09/30/2017 mammogram, 09/19/2017 mammogram, and 09/02/2016 mammogram - [facility]. The tissue of both breasts is heterogeneously dense. This may lower the sensitivity of mammography. Current study was also evaluated with a Computer Aided Detection (CAD) system. There are a grouped fine calcifications in the left breast at 10 o'clock anterior depth. No other significant masses, calcifications, or other findings are seen in either breast. IMPRESSION: INCOMPLETE: NEEDS ADDITIONAL IMAGING EVALUATION The grouped fine calcifications in the left breast are indeterminate. Mediolateral, spot magnification, and additional views are recommended. This exam was interpreted at Station ID: [id number]. NOTE: For mammograms, a report in lay terms will be sent to the patient. Approximately 15% of breast malignancies will not be visualized mammographically. In the management of a palpable breast mass, a negative mammogram must not discourage biopsy of a clinically suspicious lesion. Electronically Signed By: Jt hanna/abel:10/30/2018 16:39:08 copy to: Brina Coulter letter sent: Additional Imaging Needed ACR BI-RADS Category 0: Incomplete [id number]
== END ==
PROVIDERS: Family Provider Internal Medicine; PCP Physician Assistant; Visit Provider Physician Assistant
DX: Z12.31 Encounter for screening mammogram for malignant neoplasm of breast (principal)
CPT/HCPCS: 77063; 77067

== ENCOUNTER → 2018-11-15 14:01 | Outpatient (CLI) | payer MEDICARE, BC, SELFPAY ==
[2017-12-20 02:36] VITALS: BMI 22.1
--- NOTE | 2018-11-15 | DI.MG.S_ITS ---
UNILATERAL LEFT DIGITAL DIAGNOSTIC MAMMOGRAM 3D/2D WITH ADDITIONAL VIEWS: 11/15/2018 CLINICAL: Additional evaluation requested from prior study. Comparison is made to exams dated: 10/30/2018 mammogram, 09/30/2017 mammogram, and 09/19/2017 mammogram - [facility]. The tissue of left breast is heterogeneously dense. This may lower the sensitivity of mammography. There are a grouped punctate calcifications in the left breast central to the nipple anterior depth. No other significant masses or calcifications are seen in the breast. IMPRESSION: PROBABLY BENIGN The grouped punctate calcifications in the left breast are probably benign. A follow-up mammogram in 6 months is recommended to demonstrate stability. This exam was interpreted at Station ID: [id number]. NOTE: For mammograms, a report in lay terms will be sent to the patient. Approximately 15% of breast malignancies will not be visualized mammographically. In the management of a palpable breast mass, a negative mammogram must not discourage biopsy of a clinically suspicious lesion. Electronically Signed By: Lena Christy M.D. lk/:11/15/2018 16:51:22 copy to: Brina Coulter letter sent: Followup Recommended ACR BI-RADS Category 3: Probably benign [id number]
== END ==
PROVIDERS: PCP Physician Assistant; Visit Provider Physician Assistant
DX: R92.1 Mammographic calcification found on diagnostic imaging of breast (principal)
CPT/HCPCS: 77065; G0279

== ENCOUNTER 2018-12-14 23:55 | Emergency (ER) | payer SELFPAY | END 2018-12-15 00:12 | disposition EPU ==

== ENCOUNTER 2018-12-15 00:03 | Inpatient (IN) | payer MEDICARE, BC, SELFPAY ==
[2018-12-15] VITALS (26 sets, daily range): BP systolic 122–162; BP diastolic 51–78; PULSE 74–121; RESP 12–20; TEMP 36.4–37.1; O2SAT 92–100; BMI 23.1; BMI 22.5
--- NOTE | 2018-12-15 | DI.RAD.S_ITS ---
PROCEDURE: XR PELVIS 1-2V INDICATIONS: POST OP TECHNIQUE: Intra-operative view of the pelvis and hip acquired. COMPARISON: None. FINDINGS: Bones: Intraoperative devices prior to placement of arthroplasty prostheses are in expected positions. No fractures or suspicious bony lesions. Soft tissues: Overlying surgical retractors are present, along with other intraoperative changes. IMPRESSION: Normal intraoperative alignment of right total hip arthroplasty devices, final localization of the devices at this phase of the operative procedure. Dictated by: Matt Renae M.D. on 12/15/2018 at 17:45 Approved by: Matt Renae M.D. on 12/15/2018 at 17:46
--- NOTE | 2018-12-15 00:22 | DI.RAD.S_ITS ---
PROCEDURE: XR HIP W PEL IF DONE RT 2V INDICATIONS: pain, fall TECHNIQUE: AP pelvis with lateral view(s) of the right hip(s). COMPARISON: None. FINDINGS: Bones: Subcapital right femur fracture is noted. Right hip fracture is in varus angulation. Soft tissues: The visualized bowel gas pattern is normal. No suspicious soft tissue calcifications. IMPRESSION: Subcapital right femoral neck fracture. Dictated by: Francesca Lloyd MD, PhD on 12/15/2018 at 8:16 Approved by: Francesca Lloyd MD, PhD on 12/15/2018 at 8:17
[2018-12-15] MEDS: MORPHINE 2 MG/ML INJ IV ×4 (00:37→13:44)
[2018-12-15] MEDS: ONDANSETRON 4 MG/2 ML INJ IV (00:54)
--- NOTE | 2018-12-15 01:12 | ED.LOWEXIN ---
HPI - Extremity Injury (Lower) General Chief Complaint: Extremity Injury, Lower Stated Complaint: Fall x1 week ago Time Seen by Provider: 12/15/18 00:13 Source: patient, EMS and old records reviewed Mode of arrival: EMS Limitations: no limitations History of Present Illness HPI Narrative: Patient is a 78-year-old female who presents with right hip pain. She [place]. She was evaluated at [facility] where she had dislocated her right shoulder. Her shoulder was reduced, x-ray of her pelvis and hip at that time showed subtle subcapital fracture of the right femur. She was ambulatory on it. She was seen evaluated by Dr. Bush [facility] 12[facility]. X-ray was done in the office according to patient he also noticed fracture. At that time decided not to treat surgically over the last 1-2 days patient has not been able to bear weight she has been hopping around on her left foot. She denies numbness or tingling. MD complaint: hip injury Related Data Home Medications Medication Instructions Recorded Confirmed levothyroxine 25 mcg PO QDAY #0 06/08/17 12/15/18 atorvastatin 10 mg PO DAILY 12/20/17 12/15/18 escitalopram oxalate 20 mg PO DAILY 12/20/17 12/15/18 omeprazole 40 mg PO DAILY 12/20/17 12/15/18 Previous Rx's Medication Instructions Recorded lisinopril [Prinivil] 20 mg PO QDAY #90 02/08/12 acyclovir 400 mg tablet 400 mg PO QDAY #90 tab 06/29/18 Allergies Allergy/AdvReac Type Severity Reaction Status Date / Time Penicillins [PENICILLINS] Allergy Severe ITCH Unverified 12/20/17 03:31 codeine [CODEINE] Allergy Mild NAUSEA Unverified 12/20/17 03:31 Review of Systems Review of Systems ROS Unobtainable: All systems reviewed & are unremarkable except as noted in HPI and below Constitutional Denies chills, Denies fever(s), Denies lethargy and Denies weakness Cardiovascular Denies chest pain, Denies irregular heart rhythm, Denies lightheadedness, Denies palpitations, Denies dyspnea, Denies dyspnea on exertion and Denies orthopnea Respiratory Denies cough, Denies dyspnea, Denies dyspnea on exertion and Denies wheezing Gastrointestinal Gastrointestinal: Denies abdominal pain, Denies change in bowel habits, Denies diarrhea, Denies nausea and Denies vomiting Musculoskeletal Reports as per HPI Integumentary/Breasts Denies pruritus, Denies erythema, Denies rash and Denies wounds Neurologic Denies weakness Endocrine Denies palpitations Allergic/Immunologic Denies wheezing [facility] Medical History Depression with anxiety (Acute) GERD (gastroesophageal reflux disease) (Acute) History of hysterectomy (Acute) Hx of syncope (Acute) Hypertension (Acute) Hypothyroidism (Acute) Social History household members: significant other Smoking Status: Never smoker Social History household members: significant other Smoking Status: Never smoker Exam Initial Vital Signs Initial Vital Signs: Vital Signs Temperature 98.8 F 12/15/18 00:05 Pulse Rate 78 12/15/18 00:05 Respiratory Rate 16 12/15/18 00:05 Blood Pressure 153/72 H 12/15/18 00:05 Pulse Oximetry 100 12/15/18 00:05 GENERAL: Alert pleasant elderly female and in no acute distress. HEENT: Head atraumatic,EOMI, pupils reactive, CARDIOVASCULAR: Regular rate and rhythm without murmurs, rubs or gallops. RESPIRATORY: Breath sounds equal bilaterally, no wheezes rales or rhonchi. ABDOMEN: Soft, nontender. Normoactive bowel sounds all 4 quadrants. No guarding or rebound. EXTREMITIES: Normal range of motion, no clubbing or edema. Neurovascularly intact Right shoulder in sling contusion noted peripheral pulses intact Right hip contusion also noted small. Tender to palpation. Distal pedal pulse intact NEUROLOGICAL: Alert and oriented x4. Normal speech SKIN: Warm, dry, no laceration, no petechiae, no rashes or lesions. Course Orders Ordered: ED Orders 12/15/18 00:22 XR hip w pel if done RT 2V Stat 12/15/18 01:05 Complete Blood Count AUTO DIFF Stat Comprehensive Metabolic Panel Stat 12/15/18 01:36 Consult to Orthopedic Surgery Stat 12/15/18 02:37 Consult to Physician Routine 12/15/18 02:38 Type and Screen Urgent 12/16/18 05:00 Basic Metabolic Panel Routine Complete Blood Count AUTO DIFF Routine Acetaminophen (Tylenol) 650 mg PO Q6HR PRN PRN Reason: As Needed for Fever/Mild Pain Acetaminophen (Ofirmev) 0 mg IV Q8HR RAMIREZ; Protocol Bisacodyl (Dulcolax) 10 mg PO DAILY PRN PRN Reason: Constipation Lactated Ringer's (Lactated Ringers) 1,000 mls @ 125 mls/hr IV CONT RAMIREZ Morphine Sulfate (Morphine) 2 mg IV Q4HR PRN PRN Reason: Pain, Moderate (4-6) Naloxone HCl (Narcan) 0.2 mg IV Q2MIN PRN PRN Reason: Opiate Reversal Ondansetron HCl (Zofran) 4 mg IV Q8HR PRN PRN Reason: Nausea And Vomiting Discontinued Medications Morphine Sulfate (Morphine) 2 mg IV NOW ONE Stop: 12/15/18 00:31 Last Admin: 12/15/18 00:37 Dose: 2 mg Ondansetron HCl (Zofran) 4 mg IV NOW ONE Stop: 12/15/18 00:38 Last Admin: 12/15/18 00:54 Dose: 4 mg Vital Signs - 8 hr 12/15/18 00:05 12/15/18 00:14 Temperature 98.8 F Pulse Rate 78 Respiratory Rate 16 18 Blood Pressure 153/72 H Pulse Oximetry 100 98 MDM - Extremity Injury (Lower) Lab Data Attestation: I reviewed the patient's lab results. Result diagrams: 12/15/18 01:05 12/15/18 01:05 Lab Results 12/15/18 12/15/18 Range/Units 01:05 01:05 WBC 9.7 (4.5-11.0) X10^3/uL RBC 3.64 L (4.0-5.2) X10^6/uL Hgb 12.0 (12.0-16.0) g/dL Hct 35.5 L (36-46) % MCV 97.5 (80-100) fL MCH 33.1 (26-34) PG MCHC 33.9 (30-36) % RDW 13.7 (11.6-14.8) % Plt Count 231 (150-400) X10^3/uL Neut % (Auto) 73.0 (50-75) % Lymph % (Auto) 16.7 L (25-40) % [place] % (Auto) 8.2 (3-14) % Eos % (Auto) 1.4 L (2-4) % Baso % (Auto) 0.7 (0-2) % Neut # (Auto) 7100 H (5490-2227) /uL Lymph # (Auto) 1600 (9431-6561) /uL [place] # (Auto) 800 (0-900) /uL Eos # (Auto) 100 (0-450) /uL Baso # (Auto) 100 (0-100) /uL Sodium 134 L (137-145) mmol/L Potassium 3.9 (3.4-5.1) mmol/L Chloride 102 (98-107) mmol/L Carbon Dioxide 25 (22-32) mmol/L BUN 12 (7-17) mg/dL Creatinine 0.70 (0.52-1.04) mg/dL Estimated GFR > 60.0 (>60) mL/min BUN/Creatinine Ratio 17.1 (6-22) Glucose 109 (80-110) mg/dL Calcium 9.1 (8.4-10.2) mg/dL Total Bilirubin 0.5 (0.2-1.3) mg/dL AST 36 (14-36) IU/L ALT 23 (9-52) IU/L Alkaline Phosphatase 81 (38-126) U/L Total Protein 7.3 (6.3-8.2) g/dL Albumin 3.8 (3.5-5.0) g/dL Globulin 3.5 (1.7-4.1) g/dL Albumin/Globulin Ratio 1.1 (1.0-2.8) Imaging Data Right hip: Attestation: I personally reviewed and interpreted this imaging study as follows: My impression: Right femoral neck fx MDM Narrative Medical decision making narrative: Patient's pain is better after morphine. She has an obvious femoral neck fracture and she is unable to bear weight. I spoke with Dr. Brar was reviewed x-ray himself. Patient will go to OR in the afternoon, keep NPO Cheryl Marlo LAI, hospitalist updated patient's symptoms test results in the ED to see and evaluate patient. Happily accepts. Discharge Plan Departure Patient Disposition: Admitted As Inpatient Clinical Impression: Closed fracture of right hip Qualifiers: Encounter type: initial encounter Qualified Code(s): S72.001A - Fracture of unspecified part of neck of right femur, initial encounter for closed fracture Admit Date/Time: 12/15/18 02:05 Admit Provider: Susan Sellers
[2018-12-15 01:20] LABS: Add Manual Diff / Slide Review NO; Basophils Absolute Auto 100 /uL (0-100); Basophils Percent Auto 0.7 % (0-2); Eosinophils Absolute Auto 100 /uL (0-450); Eosinophils Percent Auto 1.4 % (2-4); Hematocrit 35.5 % (36-46); Lymphocytes Absolute Auto 1600 /uL (1100-4500); Lymphocytes Percent Auto 16.7 % (25-40); Mean Corpuscular HGB Conc 33.9 % (30-36); Mean Corpuscular Hemoglobin 33.1 PG (26-34); Mean Corpuscular Volume 97.5 fL (80-100); Monocytes Absolute Auto 800 /uL (0-900); Monocytes Percent Auto 8.2 % (3-14); Neutrophils Absolute Auto 7100 /uL (1500-7000); Platelet Count 231 X10^3/uL (150-400); Red Blood Cell Count 3.64 X10^6/uL (4.0-5.2); Red Cell Distribution Width 13.7 % (11.6-14.8); White Blood Cell Count 9.7 X10^3/uL (4.5-11.0)
[2018-12-15 01:31] LABS: Alanine Aminotransferase 23 IU/L (9-52); Albumin 3.8 g/dL (3.5-5.0); Albumin Globulin Ratio 1.1 (1.0-2.8); Alkaline Phosphatase 81 U/L (38-126); Aspartate Aminotransferase 36 IU/L (14-36); BUN Creatinine Ratio 17.1 (6-22); Bilirubin Total 0.5 mg/dL (0.2-1.3); Blood Urea Nitrogen 12 mg/dL (7-17); Calcium 9.1 mg/dL (8.4-10.2); Carbon Dioxide 25 mmol/L (22-32); Chloride 102 mmol/L (98-107); Estimated Glomerular Filt Rate > 60.0 mL/min (>60); Globulin 3.5 g/dL (1.7-4.1); Glucose 109 mg/dL (80-110); HEMOLYSIS < 15 (0-50); Potassium 3.9 mmol/L (3.4-5.1); Sodium 134 mmol/L (137-145); Total Protein 7.3 g/dL (6.3-8.2)
--- NOTE | 2018-12-15 02:20 | PC.NURSE ---
PT states R hip and R shoulder pain post fall last Tuesday was seen at [facility] diagnosed with R shoulder fracture and by Dr Bush last Tuesday diagnosed with R hip fracture. Pt has been able to ambulate until tonight with pain worsening to R Hip.
--- NOTE | 2018-12-15 02:42 | PM.HP.1 ---
History of Present Illness Date Patient Seen: 12/15/18 Time Patient Seen: 02:30 Chief complaint: Fall x1 week ago Narrative: Dionna Yao is a pleasant 78 y.o. female with hypertension, hyperlipidemia and hypothyroidism who was in her usual state of health when on December 08, she [place] the [place] being shown from the exit area sliding doors to a new parking garage when her foot or shoe caught on the carpet. She twisted around, falling on her right side hitting her face and shoulders. She was assessed at [facility] in [place] and they diagnosed her with a dislocated right shoulder and reduced it. She was discharged with a shoulder sling. This past Tuesday, she saw Dr. Bush who repeated her shoulder xray, reviewed the hip xray and noted she had fractured it. They discussed the need to stabilize the hip with a pinning procedure, and it became more progressively painful to the point of being unable to bear weight on it or walk. She lives with a male partner in his 80s who had been assisting her from her bed to the toilet, but the pain worsened to the point, she decided to come to the Ed here at [facility]. While she endorses hip pain and mild shoulder discomfort, she denies shortness of breath, palpitations, chest pain, n/v, abdominal pain, dysurea, diarrhea or constipation, wounds or rashes, neuropathies. Patient has been previously worked up for syncope in 2018 and eventually diagnosed with anxiety. She underwent stress testing, a Holter study and spent one day in observation for a chest pain rule out which turned out to be negative. She currently takes lisinopril for blood pressure and atorvastatin for hyperlipidemia. 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 Patient History Medical History Depression with anxiety (Acute) GERD (gastroesophageal reflux disease) (Acute) History of hysterectomy (Acute) Hx of syncope (Acute) Hypertension (Acute) Hypothyroidism (Acute) Social History household members: significant other Smoking Status: Never smoker Family & Social History Social History: household members significant other Tobacco & Substance use: Smoking Status Never smoker alcohol intake frequency 0-2 drinks per day Substance Use Type does not use Meds Home Medications Medication Instructions Recorded Confirmed Type lisinopril [Prinivil] 20 mg PO QDAY #90 02/08/12 12/15/18 Rx levothyroxine 25 mcg PO QDAY #0 06/08/17 12/15/18 History atorvastatin 10 mg PO DAILY 12/20/17 12/15/18 History escitalopram oxalate 20 mg PO DAILY 12/20/17 12/15/18 History omeprazole 40 mg PO DAILY 12/20/17 12/15/18 History acyclovir 400 mg tablet 400 mg PO QDAY #90 tab 06/29/18 12/15/18 Rx Allergies Allergy/AdvReac Type Severity Reaction Status Date / Time Penicillins [PENICILLINS] Allergy Severe ITCH Verified 12/15/18 03:12 codeine [CODEINE] Allergy Mild NAUSEA Verified 12/15/18 03:13 Review of Systems Review of Systems All systems reviewed & are unremarkable except as noted in HPI and below Exam Vital Signs (past 8 hours): - 12/15/18 00:05 12/15/18 00:14 Temperature 98.8 F Pulse Rate 78 Respiratory Rate 16 18 Blood Pressure 153/72 H Pulse Oximetry 100 98 Oxygen Delivery Method Room Air Narrative Exam Narrative: Gen: Alert, oriented, well-developed 78 y.o. female, appears younger than stated age HEENT: normocephalic, atraumatic, conjunctiva clear, sclera non-icteric, oral mucosa pink and moist Neck: supple, full ROM Resp: Lungs CTA, non-labored breathing CV: RRR, no murmur or rubs Abd: soft, non-tender, normoactive BTs Skin: no lesions or rashes, dry and intact Neuro: Alert and oriented X 4 w/no focal deficits Extremities: Right hip is retracted, tender Psyche: normal mood and affect. Objective Labs Result Diagrams: 12/15/18 01:05 12/15/18 01:05 Labs: Laboratory Results - last 24 hr 12/15/18 12/15/18 01:05 01:05 WBC 9.7 RBC 3.64 L Hgb 12.0 Hct 35.5 L MCV 97.5 MCH 33.1 MCHC 33.9 RDW 13.7 Plt Count 231 Neut % (Auto) 73.0 Lymph % (Auto) 16.7 L [place] % (Auto) 8.2 Eos % (Auto) 1.4 L Baso % (Auto) 0.7 Neut # (Auto) 7100 H Lymph # (Auto) 1600 [place] # (Auto) 800 Eos # (Auto) 100 Baso # (Auto) 100 Sodium 134 L Potassium 3.9 Chloride 102 Carbon Dioxide 25 BUN 12 Creatinine 0.70 Estimated GFR > 60.0 BUN/Creatinine Ratio 17.1 Glucose 109 Calcium 9.1 Total Bilirubin 0.5 AST 36 ALT 23 Alkaline Phosphatase 81 Total Protein 7.3 Albumin 3.8 Globulin 3.5 Albumin/Globulin Ratio 1.1 Assessment & Plan Assessment & Plan narrative: Dionna Yao will be admitted to the inpatient service with Orthopedic Surgery consulting for a non-displaced right femoral neck fracture. 1. Non-displaced femoral neck fracture Surgery anticipated for 12/15 NPO Type and screen She has had a Johns placed Pain control with IV tylenol and morphine 2. Hypertension, chronic and stable After surgery, she will be continued on her home dose of lisinopril 20 mg po daily 3. Hyperlipidemia, chronic and stable After surgery, she will be continued on her home dose of atorvastatin 10 mg po daily 4. Hypothyroidism, chronic and stable After surgery, she will be continued on her home dose of levothyroxine 25 mcg daily Patient is admitted inpatient as her stay is anticipated to exceed 2 midnights. FEN: LR at 125 ml/hour, NPO, chemistries in the am. VTE Prophylaxis: bilateral scds Disposition: Likely short rehab stay Code status: Full Code Admission time: 75 minutes Meds reconciled: Partial based on current med list Time Spent With Patient Time with patient: 25 - 35 minutes
--- NOTE | 2018-12-15 02:52 | P.HP_ITS ---
History of Present Illness Date Patient Seen: 12/15/18 Time Patient Seen: 02:30 Chief complaint: Fall x1 week ago Narrative: Dionna Yao is a pleasant 78 y.o. female with hypertension, hyperlipidemia and hypothyroidism who was in her usual state of health when on December 08, she [place] being shown from the exit area sliding doors to a new parking garage when her foot or shoe caught on the carpet. She twisted around, falling on her right side hitting her face and shoulders. She was assessed at [facility] in [place] and they diagnosed her with a dislocated right shoulder and reduced it. She was discharged with a shoulder sling. This past Tuesday, she saw Dr. Bush who repeated her shoulder xray, reviewed the hip xray and noted she had fractured it. They discussed the need to stabilize the hip with a pinning procedure, and it became more progressively painful to the point of being unable to bear weight on it or walk. She lives with a male partner in his 80s who had been assisting her from her bed to the toilet, but the pain worsened to the point, she decided to come to the Ed here at [facility]. While she endorses hip pain and mild shoulder discomfort, she denies shortness of breath, palpitations, chest pain, n/v, abdominal pain, dysurea, diarrhea or constipation, wounds or rashes, neuropathies. Patient has been previously worked up for syncope in 2018 and eventually diagnosed with anxiety. She underwent stress testing, a Holter study and spent one day in observation for a chest pain rule out which turned out to be negative. She currently takes lisinopril for blood pressure and atorvastatin for hyperlipidemia. 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 Patient History Medical History Depression with anxiety (Acute) GERD (gastroesophageal reflux disease) (Acute) History of hysterectomy (Acute) Hx of syncope (Acute) Hypertension (Acute) Hypothyroidism (Acute) Social History household members: significant other Smoking Status: Never smoker Family & Social History Social History: household members significant other Tobacco & Substance use: Smoking Status Never smoker alcohol intake frequency 0-2 drinks per day Substance Use Type does not use Meds Home Medications Medication Instructions Recorded Confirmed Type lisinopril [Prinivil] 20 mg PO QDAY #90 02/08/12 12/15/18 Rx levothyroxine 25 mcg PO QDAY #0 06/08/17 12/15/18 History atorvastatin 10 mg PO DAILY 12/20/17 12/15/18 History escitalopram oxalate 20 mg PO DAILY 12/20/17 12/15/18 History omeprazole 40 mg PO DAILY 12/20/17 12/15/18 History acyclovir 400 mg tablet 400 mg PO QDAY #90 tab 06/29/18 12/15/18 Rx Allergies Allergy/AdvReac Type Severity Reaction Status Date / Time Penicillins [PENICILLINS] Allergy Severe ITCH Verified 12/15/18 03:12 codeine [CODEINE] Allergy Mild NAUSEA Verified 12/15/18 03:13 Review of Systems Review of Systems All systems reviewed & are unremarkable except as noted in HPI and below Exam Vital Signs (past 8 hours): - 12/15/18 00:05 12/15/18 00:14 Temperature 98.8 F Pulse Rate 78 Respiratory Rate 16 18 Blood Pressure 153/72 H Pulse Oximetry 100 98 Oxygen Delivery Method Room Air Narrative Exam Narrative: Gen: Alert, oriented, well-developed 78 y.o. female, appears younger than stated age HEENT: normocephalic, atraumatic, conjunctiva clear, sclera non-icteric, oral mucosa pink and moist Neck: supple, full ROM Resp: Lungs CTA, non-labored breathing CV: RRR, no murmur or rubs Abd: soft, non-tender, normoactive BTs Skin: no lesions or rashes, dry and intact Neuro: Alert and oriented X 4 w/no focal deficits Extremities: Right hip is retracted, tender Psyche: normal mood and affect. Objective Labs Result Diagrams: 12/15/18 01:05 12/15/18 01:05 Labs: Laboratory Results - last 24 hr 12/15/18 12/15/18 01:05 01:05 WBC 9.7 RBC 3.64 L Hgb 12.0 Hct 35.5 L MCV 97.5 MCH 33.1 MCHC 33.9 RDW 13.7 Plt Count 231 Neut % (Auto) 73.0 Lymph % (Auto) 16.7 L [place] % (Auto) 8.2 Eos % (Auto) 1.4 L Baso % (Auto) 0.7 Neut # (Auto) 7100 H Lymph # (Auto) 1600 [place] # (Auto) 800 Eos # (Auto) 100 Baso # (Auto) 100 Sodium 134 L Potassium 3.9 Chloride 102 Carbon Dioxide 25 BUN 12 Creatinine 0.70 Estimated GFR > 60.0 BUN/Creatinine Ratio 17.1 Glucose 109 Calcium 9.1 Total Bilirubin 0.5 AST 36 ALT 23 Alkaline Phosphatase 81 Total Protein 7.3 Albumin 3.8 Globulin 3.5 Albumin/Globulin Ratio 1.1 Assessment & Plan Assessment & Plan narrative: Dionna Yao will be admitted to the inpatient service with Orthopedic Surgery consulting for a non-displaced right femoral neck fracture. 1. Non-displaced femoral neck fracture * Surgery anticipated for 12/15 * NPO * Type and screen * She has had a Johns placed * Pain control with IV tylenol and morphine 2. Hypertension, chronic and stable * After surgery, she will be continued on her home dose of lisinopril 20 mg po daily 3. Hyperlipidemia, chronic and stable * After surgery, she will be continued on her home dose of atorvastatin 10 mg po daily 4. Hypothyroidism, chronic and stable * After surgery, she will be continued on her home dose of levothyroxine 25 mcg daily Patient is admitted inpatient as her stay is anticipated to exceed 2 midnights. FEN: LR at 125 ml/hour, NPO, chemistries in the am. VTE Prophylaxis: bilateral scds Disposition: Likely short rehab stay Code status: Full Code Admission time: 75 minutes Meds reconciled: Partial based on current med list Time Spent With Patient Time with patient: 25 - 35 minutes
[2018-12-15] MEDS: LACTATED RINGERS 1,000 ML 125 ML IV ×4 (03:32→21:36)
--- NOTE | 2018-12-15 04:17 | PC.NURSE ---
Admitted to room 205, [place] States went to the ER In [place] they placed back my dislocated Rt. shoulder & I been walking around the house, my pain got really bad yesterday. Oriented to her room showed how to used her call light, TV & instructed not to get OOB without any assistance. Bed alarm activated, C/O Rt. hip pain when we moved her from ER bed to her bed. Rated pain level 7-8/10 medicated with 2 mg. of Morphine IVP. Requested Zofran, but then it's too early for a dose of Zofran. Administered Morphine very slowly over 2 mins. & cold compress applied to forehead & pt. did not C/O nausea. Will cont. POC & monitor.
--- NOTE | 2018-12-15 08:43 | PM.CN ---
History of Present Illness Date Patient Seen: 12/15/18 Time Patient Seen: 08:15 Chief complaint: Fall x1 week ago Reason for consult: Right femoral neck fracture Requesting provider: Shanon Doll Narrative: The patient is a pleasant 78-year-old woman who was at the [facility] when she suffered a fall, injuring her right shoulder with a dislocation and her right hip. She was seen at the [facility] Emergency room where a fracture dislocation of the right shoulder was identified and treated with a reduction and the right hip was felt to be negative for fracture on x-rays by the patient's report. She went home and had increasing pain in the right hip. She called 1st thing on TuesdayDecember 11 to see her primary orthopedic surgeon Dr. Rubio Bush. His 1st available appointment was December 13. At that office visit she was noted to have a reduced shoulder with a mildly displaced greater tuberosity fracture on the right and an impacted right femoral neck fracture. The patient was informed of her treatment options and after consideration elected to attempt non operative treatment of the impacted fracture. She does report that Dr. Bush informed her that he would have performed a percutaneous screw fixation if he had been the doctor on-call at [place]. At that time her hip was not terribly painful so she elected to attempt non operative treatment. Over the ensuing 2 days the pain progressively worsened and she had a severe amount of pain on the 14 of December and went to the [facility] Emergency room where x-rays showed displacement of the fracture. She was admitted just after midnight on the morning of December 15. Orthopedics was contacted for definitive management of the fracture. [facility] Medical History Depression with anxiety (Acute) GERD (gastroesophageal reflux disease) (Acute) History of hysterectomy (Acute) Hx of syncope (Acute) Hypertension (Acute) Hypothyroidism (Acute) Family History (Updated 12/15/18 @ 02:51 by MING Olivera) Mother Dementia Social History household members: significant other Smoking Status: Never smoker Family History Mother Dementia Social History household members: significant other Smoking Status: Never smoker Meds Home Medications Medication Instructions Recorded Confirmed Type lisinopril [Prinivil] 20 mg PO QDAY #90 02/08/12 12/15/18 Rx levothyroxine 25 mcg PO QDAY #0 06/08/17 12/15/18 History atorvastatin 10 mg PO DAILY 12/20/17 12/15/18 History escitalopram oxalate 20 mg PO DAILY 12/20/17 12/15/18 History omeprazole 40 mg PO DAILY 12/20/17 12/15/18 History acyclovir 400 mg tablet 400 mg PO QDAY #90 tab 06/29/18 12/15/18 Rx Allergies Allergy/AdvReac Type Severity Reaction Status Date / Time Penicillins [PENICILLINS] Allergy Severe ITCH Verified 12/15/18 03:12 codeine [CODEINE] Allergy Mild NAUSEA Verified 12/15/18 03:13 Review of Systems Review of Systems The patient reports no changes in her health recently other than the incidents detailed in her history of present illness. All systems reviewed & are unremarkable except as noted in HPI and below Exam Vital Signs (past 8 hours): - 12/15/18 02:32 12/15/18 02:45 12/15/18 03:10 Temperature 98 F 98 F Pulse Rate 79 74 79 Respiratory Rate 16 15 16 Blood Pressure 144/78 H 141/70 H 144/78 H Pulse Oximetry 95 100 95 12/15/18 03:39 12/15/18 06:32 12/15/18 08:00 Temperature 98.7 F 98.0 F Pulse Rate 86 84 Respiratory Rate 16 16 Blood Pressure 142/63 H 148/78 H Pulse Oximetry 98 96 96 12/15/18 08:11 Temperature Pulse Rate Respiratory Rate Blood Pressure Pulse Oximetry 98 Oxygen Delivery Method Room Air Oxygen Flow Rate 0 Narrative Exam Narrative: The right leg is mildly shortened compared to the left. Rotation appears appropriate. There is a bruise overlying the greater trochanter on the right. The skin is intact. She has pain on logroll of the hip. The calf is soft. Light touch and motion are intact in the right lower extremity. Objective Labs Result Diagrams: 12/15/18 01:05 12/15/18 01:05 Labs: Laboratory Results - last 24 hr 12/15/18 12/15/18 12/15/18 01:05 01:05 04:04 WBC 9.7 RBC 3.64 L Hgb 12.0 Hct 35.5 L MCV 97.5 MCH 33.1 MCHC 33.9 RDW 13.7 Plt Count 231 Neut % (Auto) 73.0 Lymph % (Auto) 16.7 L Smith % (Auto) 8.2 Eos % (Auto) 1.4 L Baso % (Auto) 0.7 Neut # (Auto) 7100 H Lymph # (Auto) 1600 Smith # (Auto) 800 Eos # (Auto) 100 Baso # (Auto) 100 Sodium 134 L Potassium 3.9 Chloride 102 Carbon Dioxide 25 BUN 12 Creatinine 0.70 Estimated GFR > 60.0 BUN/Creatinine Ratio 17.1 Glucose 109 Calcium 9.1 Total Bilirubin 0.5 AST 36 ALT 23 Alkaline Phosphatase 81 Total Protein 7.3 Albumin 3.8 Globulin 3.5 Albumin/Globulin Ratio 1.1 Blood Type A Negative Antibody Screen Negative Assessment & Plan Assessment & Plan narrative: 1. Garden III mildly displaced right femoral neck fracture: The patient has hip fracture has progressed from an impacted fracture to a mildly displaced fracture of the femoral neck. Treatment options here are reduction and percutaneous screw fixation or hemiarthroplasty. Given her limited ability to weight bear on the right upper extremity it would be best for her to be able to put full weight immediately on the right hip. That together with the increased risk of osteonecrosis with the displacement of the femoral neck would indicate that a hemiarthroplasty is her best option. The risks benefits and alternatives of the surgery were discussed with her at length. Risks discussed included but were not limited to: Dislocation, leg-length discrepancy, nerve damage, infection, deep venous thrombosis, pulmonary embolism, stroke, myocardial infarction, permanent paralysis and . Due to my availability and the availability of the operating room this will probably happen around 4:00 P.M. this afternoon. 2. Fracture dislocation of the right shoulder. The dislocation portion of this was addressed when she was seen in the emergency room at [facility]. She does have a mildly displaced fracture of the greater tuberosity, which should be amenable to non operative treatment if it remains in the position it is currently. We will allow her to weight bear as tolerated on the right upper extremity because of her right hip fracture. 3. Preoperative anemia. It is not clear whether this is due to the hip fracture or whether preexisted the hip fracture. With her current hemoglobin and hematocrit I do not believe that there is a high risk of transfusion during the operation. Time Spent With Patient Time with patient: 25 - 35 minutes
--- NOTE | 2018-12-15 08:55 | P.CONS_ITS ---
History of Present Illness Date Patient Seen: 12/15/18 Time Patient Seen: 08:15 Chief complaint: Fall x1 week ago Reason for consult: Right femoral neck fracture Requesting provider: Shanon Doll Narrative: The patient is a pleasant 78-year-old woman who was at [facility] when she suffered a fall, injuring her right shoulder with a dislocation and her right hip. She was seen at the [facility] Emergency room where a fracture dislocation of the right shoulder was identified and treated with a reduction and the right hip was felt to be negative for fracture on x-rays by the patient's report. She went home and had increasing pain in the right hip. She called 1st thing on Tuesday mo December 11 to see her primary orthopedic surgeon Dr. Rubio Bush. His 1st available appointment was December 13. At that office visit she was noted to have a reduced shoulder with a mildly displaced greater tuberosity fracture on the right and an impacted right femoral neck fracture. The patient was informed of her treatment options and after consideration elected to attempt non operative treatment of the impacted fracture. She does report that Dr. Bush informed her that he would have performed a percutaneous screw fixation if he had been the doctor on-call at [place]. At that time her hip was not terribly painful so she elected to attempt non operative treatment. Over the ensuing 2 days the pain progressively worsened and she had a severe amount of pain on the 14 of December and went to the [facility] Emergency room where x-rays showed displacement of the fracture. She was admitted just after midnight on the morning of December 15. Orthopedics was contacted for definitive management of the fracture. [facility] Medical History Depression with anxiety (Acute) GERD (gastroesophageal reflux disease) (Acute) History of hysterectomy (Acute) Hx of syncope (Acute) Hypertension (Acute) Hypothyroidism (Acute) Family History (Updated 12/15/18 @ 02:51 by MING Olivera) Mother Dementia Social History household members: significant other Smoking Status: Never smoker Family History Mother Dementia Social History household members: significant other Smoking Status: Never smoker Meds Home Medications Medication Instructions Recorded Confirmed Type lisinopril [Prinivil] 20 mg PO QDAY #90 02/08/12 12/15/18 Rx levothyroxine 25 mcg PO QDAY #0 06/08/17 12/15/18 History atorvastatin 10 mg PO DAILY 12/20/17 12/15/18 History escitalopram oxalate 20 mg PO DAILY 12/20/17 12/15/18 History omeprazole 40 mg PO DAILY 12/20/17 12/15/18 History acyclovir 400 mg tablet 400 mg PO QDAY #90 tab 06/29/18 12/15/18 Rx Allergies Allergy/AdvReac Type Severity Reaction Status Date / Time Penicillins [PENICILLINS] Allergy Severe ITCH Verified 12/15/18 03:12 codeine [CODEINE] Allergy Mild NAUSEA Verified 12/15/18 03:13 Review of Systems Review of Systems The patient reports no changes in her health recently other than the incidents detailed in her history of present illness. All systems reviewed & are unremarkable except as noted in HPI and below Exam Vital Signs (past 8 hours): - 12/15/18 02:32 12/15/18 02:45 12/15/18 03:10 Temperature 98 F 98 F Pulse Rate 79 74 79 Respiratory Rate 16 15 16 Blood Pressure 144/78 H 141/70 H 144/78 H Pulse Oximetry 95 100 95 12/15/18 03:39 12/15/18 06:32 12/15/18 08:00 Temperature 98.7 F 98.0 F Pulse Rate 86 84 Respiratory Rate 16 16 Blood Pressure 142/63 H 148/78 H Pulse Oximetry 98 96 96 12/15/18 08:11 Temperature Pulse Rate Respiratory Rate Blood Pressure Pulse Oximetry 98 Oxygen Delivery Method Room Air Oxygen Flow Rate 0 Narrative Exam Narrative: The right leg is mildly shortened compared to the left. Rotation appears appropriate. There is a bruise overlying the greater tr ochanter on the right. The skin is intact. She has pain on logroll of the hip. The calf is soft. Light touch and motion are intact in the right lower extremity. Objective Labs Result Diagrams: 12/15/18 01:05 12/15/18 01:05 Labs: Laboratory Results - last 24 hr 12/15/18 12/15/18 12/15/18 01:05 01:05 04:04 WBC 9.7 RBC 3.64 L Hgb 12.0 Hct 35.5 L MCV 97.5 MCH 33.1 MCHC 33.9 RDW 13.7 Plt Count 231 Neut % (Auto) 73.0 Lymph % (Auto) 16.7 L [place] % (Auto) 8.2 Eos % (Auto) 1.4 L Baso % (Auto) 0.7 Neut # (Auto) 7100 H Lymph # (Auto) 1600 [place] # (Auto) 800 Eos # (Auto) 100 Baso # (Auto) 100 Sodium 134 L Potassium 3.9 Chloride 102 Carbon Dioxide 25 BUN 12 Creatinine 0.70 Estimated GFR > 60.0 BUN/Creatinine Ratio 17.1 Glucose 109 Calcium 9.1 Total Bilirubin 0.5 AST 36 ALT 23 Alkaline Phosphatase 81 Total Protein 7.3 Albumin 3.8 Globulin 3.5 Albumin/Globulin Ratio 1.1 Blood Type A Negative Antibody Screen Negative Assessment & Plan Assessment & Plan narrative: 1. Garden III mildly displaced right femoral neck fracture: The patient has hip fracture has progressed from an impacted fracture to a mildly displaced fracture of the femoral neck. Treatment options here are reduction and percutaneous screw fixation or hemiarthroplasty. Given her limited ability to weight bear on the right upper extremity it would be best for her to be able to put full weight immediately on the right hip. That together with the increased risk of osteonecrosis with the displacement of the femoral neck would indicate that a hemiarthroplasty is her best option. The risks benefits and alternatives of the surgery were discussed with her at length. Risks discussed included but were not limited to: Dislocation, leg-length discrepancy, nerve damage, infection, deep venous thrombosis, pulmonary embolism, stroke, myocardial infarction, permanent paralysis and . Due to my availability and the availability of the operating room this will probably happen around 4:00 P.M. this afternoon. 2. Fracture dislocation of the right shoulder. The dislocation portion of this was addressed when she was seen in the emergency room at [facility]. She does have a mildly displaced fracture of the greater tuberosity, which should be amenable to non operative treatment if it remains in the position it is currently. We will allow her to weight bear as tolerated on the right upper extremity because of her right hip fracture. 3. Preoperative anemia. It is not clear whether this is due to the hip fracture or whether preexisted the hip fracture. With her current hemoglobin and hematocrit I do not believe that there is a high risk of transfusion during the operation. Time Spent With Patient Time with patient: 25 - 35 minutes
--- NOTE | 2018-12-15 14:43 | CM.DANOTE ---
Discharge Planning/Care Management DCP: assessment: case received and discussed in Team Rounds. Pt is a 78 year old female who admitted to care to hospitalist team early this morning after a fall and with a worsening hip fracture diagnosed. Dr. Mckenna and ortho surgeon Dr. Brar/consulting discussed case and plan now is for pt to go to surgery later this afternoon to repair the hip fracture. Payer: Medicare and BS out of [facility] Admission status: INPT: confirmed by UR RN Chelo. Met with pt, found lying in bed resting but eager to talk. Introduced self and role. Pt states that she has had a rough time struggling to manage at her home this week and is so thankful to have a diagnosis and a plan to repair her fracture. She says her shoulder is also injured and knows that will complicate things. She is planning for snf rehab. SNF choice list: discussed Decision: [facility] Referral: Katie/ANITA: has accepted with pt expected to be ready 12/18 or >. DCP team will be following up after surgery. PASRR: not started. P: [facility] when stable for d/c Advanced directive, confirm from FAMILY Start: 12/15/18 03:58 Freq: Q24H Status: Active Protocol: Document 12/15/18 08:11 YAD (Rec: 12/15/18 08:19 YAD [id number]) Advance Directive, confirm on record Time 08:11 Person contacted patient Copy received No CM Discharge Assessment Start: 12/15/18 14:35 Freq: Status: Active Protocol: Document 12/15/18 14:35 ITV (Rec: 12/15/18 14:43 ITV [id number]) Discharge Planning Assessment Advance Directives? 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 Independent with ADL's Yes Is patient alert and oriented? Yes Patient/Family Preference Senior Care Facility Referrals Initiated Senior Care Additional Comment fax to Katie/[facility]: her admission cell #s vm system is full Medicare Choice List Provided Yes SNF/HH Preference [facility] Whiteboard Updated in Patient Room with Yes name and ext. # of Gas Flow Regulator Review Status In Process
--- NOTE | 2018-12-15 15:37 | SUR.OPER ---
Lateral on padded OR bed. Gel axillary roll. Arms secured on padded armboard with pillow supporting top arm. Padded hip positioner braces x4 - anterior and posterior chest and pelvis. Additional gel pad used anterior pelvis. Gel pad under bottom leg from knee to foot and secured with tape over sheet.
[2018-12-15] MEDS: LACTATED RINGERS 1,000 ML 42 ML IV (15:48)
--- NOTE | 2018-12-15 15:57 | SUR.HOLD ---
Pt denied diabetes. Does not take a beta vu or blood thinner. Report to Kaia.
[2018-12-15] MEDS: CEFAZOLIN 2 GM/100 ML FROZ.PIGGY IV (16:00)
--- NOTE | 2018-12-15 16:05 | PC.NURSE ---
Addendum entered by Claudia Andersen R.N. 12/15/18 22:05: OTC CLERK reported emptied 100 cc's urine from taylor prior to bringing pt up to floor @ 1900. End of shift emptied 175 cc's. Pt repositioned by GEOLOGY INSTRUCTOR. Unable to remain awake to converse. Mostly sleeping unless staff intervene and waken pt for care. Held sedating meds d/t pt's level of sedation this shift since returning from surgery. Addendum entered by Claudia Andersen R.N. 12/15/18 21:44: Rouses to voice. Aquacel dressing remains intact to right hip with ice to site. BL calf scd's in place. Ice chips as per pt request. No complaints of pain or discomfort. Sleepy; held po meds until more wakeful. 02 2L nc sats 95% per continuous monitor. Taylor to gravity with clear, yellow urine. Addendum entered by Claudia Andersen R.N. 12/15/18 20:09: 1905 Pt to room 205 from PACU drowsy, but rousable. Able to follow commands. 02 2L nc sats 94% per continuous monitor. Ice to right hip. Aquacel dressing to right hip dry and intact. Pt able to wiggle toes to right foot upon command. Warm and pink extremities. Palpable pedal pulse right foot. BL calf scd's in place. NPO until fully awake. IV fluids infusing as ordered to left hand iv site without difficulty. Taylor to gravity. Pillow between legs. Original Note: Pt resting quietly in bed awake and alert. O.R. crew comes to get pt for surgery. Pt's sister and [id number] are present with pt in room 205.
[2018-12-15] MEDS: TRANEXAMIC ACID 1,000 MG VIAL 1000 MG IV ×2 (16:31→17:30)
[2018-12-15] MEDS: EPINEPHrine 1 MG/ML AMPUL IV (16:35)
[2018-12-15] MEDS: BUPIVACAINE 0.5% W/ EPI (PF) VIAL 30 ML INJ (16:36)
--- NOTE | 2018-12-15 17:46 | PM.OP.1 ---
Operative Date/Time/Diagnoses Date of procedure: 12/15/18 Time of procedure: 17:46 Pre-op diagnosis: Right displaced closed femoral neck fracture Post-op diagnosis: same Procedure & Clinicians Procedure: Right hip hemiarthroplasty Same procedure as scheduled: Yes Indications: The patient is a 78-year-old woman who fell recently sustaining initially an impacted femoral neck fracture. This has gone on to displace and at this point a hemiarthroplasty of the hip is recommended. She is agreed to this after discussion the risks benefits and alternatives. This is documented in my consultation note. Surgeon: Iraj Brar Senior Net Application Developer: Claudine Guo Click Yes if Unassisted: No Anesthesia Type: General and Local Operative Notes Findings: Subcapital femoral neck fracture, displaced, right hip. Closure Type: primary Specimen(s): none sent Prosthetic devices, grafts, tissues, transplants, or devices: Implants used in this procedure were manufactured by the [employer] and included a Ralston Basic cemented stem, size 2, a 44 mm Barre fracture head ball, a +0 neck adapter, and 8.5 mm distal cement centralizer. In addition a distal cement canal plug from [employer] was implanted. Applied: catheter and implant(s) Estimated Blood Loss (mL): 50 Blood products transfused: none Tourniquet time (min): 0 Procedure in detail: The patient was seen in the preoperative area where she confirmed her right hip was the operative site and this was marked with my initials. She received preoperative antibiotics and was taken to the operating room and placed on the operating room table in the supine position after undergoing a general anesthetic on her hospital bed. She was then repositioned in the left lateral decubitus position with an axillary roll and padding for all pressure points. She was stabilized in this position using the hip sales and service specialist system. The right leg was prepared from the ankle to the iliac crest with ChloraPrep in the usual fashion and draped through sterile drapes. Prior to prepping and draping a time cycle operator-out was performed. The hip was approached through an approximately 15 cm incision centered over the greater trochanter. This was carried to the fascia adrienne which was incised and retracted with a self-retaining retractor. Trochanteric bursa was excised with great care to avoid the sciatic nerve which was identified and protected throughout the case. The short external rotators were released and a posterior capsular muscular flap was created and tagged for later repair. The femoral head was removed from the acetabulum using the ?corkscrew? device. This was measured and the appropriate trial placed with good fit. The femoral neck cut was amended to be somewhat lower and more appropriate for the prosthetic. A starter Reamer was then used followed by a lateralizing Reamer. A size 1 and then a size 2 broach were placed. The size 2 broach fit very snugly and therefore the size 2 stem was selected. A trial reduction was performed with a +0 neck adapter and a 44 mm trial head. This showed what appeared to be equal leg lengths, appropriate laxity of the muscles, stability in the position of sleep, the position of squatting, and she could be internally rotated to approximately 80? in 90? of flexion before dislocating. All the appropriate prosthetics were opened. The femoral canal was plugged with a plastic bone plug. The canal was prepared with pulsatile lavage and dried with a vaginal packing sponge. Cement was retrograde injected and pressurized and the prosthetic placed. Excess cement was removed during curing. The appropriate head and neck adapter were then applied. The hip was relocated 1 final time. A cross-table AP radiograph was obtained in the operating room to confirm appropriate position of the prosthetic. Wound was irrigated. The capsulomusclar flap was reapproximated to the greater trochanter through a bone tunnel. The fascia adrienne was closed with running and interrupted 1. Vicryl. The subcutaneous layer closed with interrupted 3 O Vicryl after injection of 30 mL of 0.5% Marcaine with epinephrine in the subcutaneous tissues for postoperative pain control. The skin was closed with a running 3 0 V lock suture and Steri-Strips. An Aquacel Ag dressing was applied. The patient was then transferred to the recovery room in good condition having tolerated procedure well. Complications: none Condition: stable Disposition: PACU Plan for aftercare: Patient will be maintained on posterior hip precautions for 6 weeks. She will be allowed to weight bear as tolerated. She currently has no one living with her at home and will need to be fairly independent before returning home. It is likely that she will be transferred for short period [facility] for [facility] before going home. Patient is aware that I am rotating off call and that her orthopedic care will be under the supervision of my partner.
[2018-12-15] MEDS: METOPROLOL TARTRATE 5 MG/5 ML INJ IV (17:54)
--- NOTE | 2018-12-15 17:55 | P.OP_ITS ---
Operative Date/Time/Diagnoses Date of procedure: 12/15/18 Time of procedure: 17:46 Pre-op diagnosis: Right displaced closed femoral neck fracture Post-op diagnosis: same Procedure & Clinicians Procedure: Right hip hemiarthroplasty Same procedure as scheduled: Yes Indications: The patient is a 78-year-old woman who fell recently sustaining in itially an impacted femoral neck fracture. This has gone on to displace and at this point a hemiarthroplasty of the hip is recommended. She is agreed to this after discussion the risks benefits and alternatives. This is documented in my consultation note. Surgeon: Iraj Brar Manager Floral: Claudine Guo Click Yes if Unassisted: No Anesthesia Type: General and Local Operative Notes Findings: Subcapital femoral neck fracture, displaced, right hip. Closure Type: primary Specimen(s): none sent Prosthetic devices, grafts, tissues, transplants, or devices: Implants used in this procedure were manufactured by the [employer] and included a [place] Basic cemented stem, size 2, a 44 mm Annamarie fracture head ball, a +0 neck adapter, and 8.5 mm distal cement centralizer. In addition a distal cement canal plug from [facility] was implanted. Applied: catheter and implant(s) Estimated Blood Loss (mL): 50 Blood products transfused: none Tourniquet time (min): 0 Procedure in detail: The patient was seen in the preoperative area where she confirmed her right hip was the operative site and this was marked with my initials. She received preoperative antibiotics and was taken to the operating room and placed on the operating room table in the supine position after undergoing a general anesthetic on her hospital bed. She was then repositioned in the left lateral decubitus position with an axillary roll and padding for all pressure points. She was stabilized in this position using the hip ux researcher system. The right leg was prepared from the ankle to the iliac crest with ChloraPrep in the usual fashion and draped through sterile drapes. Prior to prepping and draping a energy systems laboratory director-out was performed. The hip was approached through an approximately 15 cm incision centered over the greater trochanter. This was carried to the fascia adrienne which was incised and retracted with a self-retaining retractor. Trochanteric bursa was excised with great care to avoid the sciatic nerve which was identified and protected throughout the case. The short external rotators were released and a posterior capsular muscular flap was created and tagged for later repair. The femoral head was removed from the acetabulum using the ?corkscrew? device. This was measured and the appropriate trial placed with good fit. The femoral neck cut was amended to be somewhat lower and more appropriate for the prosthetic. A starter Reamer was then used followed by a lateralizing Reamer. A size 1 and then a size 2 broach were placed. The size 2 broach fit very snugly and therefore the size 2 stem was selected. A trial reduction was performed with a +0 neck adapter and a 44 mm trial head. This showed what appeared to be equal leg lengths, appropriate laxity of the muscles, stability in the position of sleep, the position of squatting, and she could be internally rotated to approximately 80? in 90? of flexion before dislocating. All the appropriate prosthetics were opened. The femoral canal was plugged with a plastic bone plug. The canal was prepared with pulsatile lavage and dried with a vaginal packing sponge. Cement was retrograde injected and pressurized and the prosthetic placed. Excess cement was removed during curing. The appropriate head and neck adapter were then applied. The hip was relocated 1 final time. A cross-table AP radiograph was obtained in the operating room to confirm appropriate position of the prosthetic. Wound was irrigated. The capsulomusclar flap was reapproximated to the greater trochanter through a bone tunnel. The fascia adrienne was closed with running and interrupted 1. Vicryl. The subcutaneous layer closed with interrupted 3 O Vicryl after injection of 30 mL of 0.5% Marcaine with epinephrine in the subcutaneous tissues for postoperative pain control. The skin was closed with a running 3 0 V lock suture and Steri-Strips. An Aquacel Ag dressing was applied. The patient was then transferred to the recovery room in good condition having tolerated procedure well. Complications: none Condition: stable Disposition: PACU Plan for aftercare: Patient will be maintained on posterior hip precautions for 6 weeks. She will be allowed to weight bear as tolerated. She currently has no one living with her at home and will need to be fairly independent before returning home. It is likely that she will be transferred for short period of time to [facility]pc facility for additional rehab before going home. Patient is aware that I am rotating off call and that her orthopedic care will be under the supervision of my partner.
[2018-12-15] MEDS: HYDROMORPHONE 2 MG INJ 0.5 MG IV ×4 (18:10→18:25)
[2018-12-15] MEDS: OXYCODONE IR 5 MG TABLET PO (23:47)
[2018-12-16] VITALS (7 sets, daily range): BP systolic 103–138; BP diastolic 52–75; PULSE 78–87; RESP 16–18; TEMP 36.4–37.5; O2SAT 94–99
[2018-12-16] MEDS: LEVOTHYROXINE 25 MCG TABLET PO (05:26)
[2018-12-16] MEDS: OXYCODONE IR 5 MG TABLET PO ×5 (05:34→22:54)
[2018-12-16 07:15] LABS: Add Manual Diff / Slide Review NO; Basophils Absolute Auto 0 /uL (0-100); Basophils Percent Auto 0.4 % (0-2); Eosinophils Absolute Auto 0 /uL (0-450); Hematocrit 33.5 % (36-46); Hemoglobin 11.3 g/dL (12.0-16.0); Lymphocytes Absolute Auto 1300 /uL (1100-4500); Lymphocytes Percent Auto 10.8 % (25-40); Mean Corpuscular HGB Conc 33.6 % (30-36); Mean Corpuscular Hemoglobin 33.1 PG (26-34); Mean Corpuscular Volume 98.5 fL (80-100); Monocytes Absolute Auto 1000 /uL (0-900); Monocytes Percent Auto 8.4 % (3-14); Neutrophils Absolute Auto 9400 /uL (1500-7000); Neutrophils Percent Auto 80.4 % (50-75); Platelet Count 217 X10^3/uL (150-400); Red Cell Distribution Width 13.3 % (11.6-14.8); White Blood Cell Count 11.7 X10^3/uL (4.5-11.0)
[2018-12-16 07:25] LABS: Blood Urea Nitrogen 9 mg/dL (7-17); Calcium 8.6 mg/dL (8.4-10.2); Carbon Dioxide 29 mmol/L (22-32); Chloride 100 mmol/L (98-107); Estimated Glomerular Filt Rate > 60.0 mL/min (>60); Glucose 118 mg/dL (80-110); HEMOLYSIS < 15 (0-50); Potassium 4.4 mmol/L (3.4-5.1); Sodium 135 mmol/L (137-145)
--- NOTE | 2018-12-16 08:48 | P.PN_ITS ---
Subjective Date Patient Seen: 12/16/18 Time Patient Seen: 08:00 Interval history: Dionna Yao is a pleasant 78 y.o. female with hypertension, hyperlipidemia and hypothyroidism now postoperative day 1 after right hemiarthroplasty after a mechanical fall. She complains of mild right hip pain and occasional muscle spasms, but states that her pain is adequately controlled with medications. She denies chest pain, shortness of breath, nausea, vomiting, abdominal pain, numbness, tingling. She has not yet had a bowel movement after surgery, she has a Johns catheter which has clear yellow urine. Exam Vital Signs (past 8 hours): - 12/16/18 05:36 12/16/18 07:41 Temperature 98 F 99.5 F Pulse Rate 84 83 Respiratory Rate 16 16 Blood Pressure 138/75 116/54 L Pulse Oximetry 98 99 Oxygen Delivery Method Nasal Cannula Oxygen Flow Rate 0 Narrative Exam Narrative: GENERAL APPEARANCE: Well developed, well nourished, in no acute distress. SKIN: Inspection of the skin reveals no rashes, ulcerations or petechiae. HEENT: The sclerae were anicteric and conjunctivae were pink and moist. Extraocular movements were intact and pupils were equal, round, and reactive to light with normal accommodation. External inspection of the ears and nose showed no scars, lesions, or masses. Lips, teeth, and gums showed normal mucosa. The oral mucosa, hard and soft palate, tongue and posterior pharynx were normal. NECK: Supple and symmetric. There was no thyroid enlargement, and no tenderness, or masses were felt. CHEST: Normal AP diameter and normal contour without any kyphoscoliosis. LUNGS: Auscultation of the lungs revealed no wheezes, rhonchi, or rales. CARDIOVASCULAR: There was a regular rate and rhythm without any murmurs, gallops, rubs. The carotid pulses were normal and 2+ bilaterally without bruits. Peripheral pulses were 2+ and symmetric. ABDOMEN: Soft and nontender with normal bowel sounds. No ascites was noted. MUSCULOSKELETAL: Mild tenderness around surgical site. Dressing is clear, dry, and intact. Thigh was soft. EXTREMITIES: No cyanosis, clubbing or edema. NEUROLOGIC: Alert and oriented x 3. Normal affect. Sensation to touch was normal. Objective Labs Result Diagrams: 12/16/18 07:05 12/16/18 07:05 Labs: Laboratory Results - last 24 hr 12/16/18 12/16/18 07:05 07:05 WBC 11.7 H RBC 3.40 L Hgb 11.3 L Hct 33.5 L MCV 98.5 MCH 33.1 MCHC 33.6 RDW 13.3 Plt Count 217 Neut % (Auto) 80.4 H Lymph % (Auto) 10.8 L [place] % (Auto) 8.4 Eos % (Auto) 0.0 L Baso % (Auto) 0.4 Neut # (Auto) 9400 H Lymph # (Auto) 1300 [place] # (Auto) 1000 H Eos # (Auto) 0 Baso # (Auto) 0 Sodium 135 L Potassium 4.4 Chloride 100 Carbon Dioxide 29 BUN 9 Creatinine 0.60 Estimated GFR > 60.0 BUN/Creatinine Ratio 15.0 Glucose 118 H Calcium 8.6 Assessment & Plan Assessment & Plan narrative: Dionna Yao will be admitted to the inpatient service with Orthopedic Surgery consulting for a non-displaced right femoral neck fracture. 1. Non-displaced R. femoral neck fracture - now s/p R hemiarthroplasty on 12/15/18. Doing well after surgery. - pain control as needed - PT pending - will likely need short term rehab - appreciate orthopedic surgery recommendations 2. Acute blood loss anemia - Hg 11.3 today from baseline of 12. Due to surgical interventions as noted above - continue to monitor with CBC daily. 3. Hypertension, chronic and stable continued on her home dose of lisinopril 20 mg po daily 4. Hyperlipidemia, chronic and stable Continue on her home dose of atorvastatin 10 mg po daily 5. Hypothyroidism, chronic and stable Continue on her home dose of levothyroxine 25 mcg daily VTE Prophylaxis: Lovenox daily Disposition: Likely short rehab stay Code status: Full Code Quality VTE Deep Vein Thrombosis/Pulmonary Embolism Present on Admission: No
--- NOTE | 2018-12-16 09:18 | P.PN_ITS ---
Subjective Date Patient Seen: 12/16/18 Time Patient Seen: 09:11 Interval history: Patient is a 78 year old female who is POD#1 s/p right hip hemiarthroplasty for impacted femoral neck fracture with Dr. Brar. Her pain has been well controlled with Oxycodone and Tylenol. She has not yet mobilized with physical therapy. Johns catheter is in place. She denies calf pain or numbness/tingling in the extremity. Exam Vital Signs (past 8 hours): - 12/16/18 05:36 12/16/18 07:41 Temperature 98 F 99.5 F Pulse Rate 84 83 Respiratory Rate 16 16 Blood Pressure 138/75 116/54 L Pulse Oximetry 98 99 Oxygen Delivery Method Nasal Cannula Oxygen Flow Rate 0 Narrative Exam Narrative: Pleasant 78 year old female resting comfortably in bed. Alert and oriented, in no acute distress. Dressing in palce over right hip is CDI. Patient able to flex/extend the foot and toes. Sensation intact to light touch. Calves soft, compressible bilaterally. Palpable pedal pulse. Objective Labs Result Diagrams: 12/16/18 07:05 12/16/18 07:05 Labs: Laboratory Results - last 24 hr 12/16/18 12/16/18 07:05 07:05 WBC 11.7 H RBC 3.40 L Hgb 11.3 L Hct 33.5 L MCV 98.5 MCH 33.1 MCHC 33.6 RDW 13.3 Plt Count 217 Neut % (Auto) 80.4 H Lymph % (Auto) 10.8 L [place] % (Auto) 8.4 Eos % (Auto) 0.0 L Baso % (Auto) 0.4 Neut # (Auto) 9400 H Lymph # (Auto) 1300 [place] # (Auto) 1000 H Eos # (Auto) 0 Baso # (Auto) 0 Sodium 135 L Potassium 4.4 Chloride 100 Carbon Dioxide 29 BUN 9 Creatinine 0.60 Estimated GFR > 60.0 BUN/Creatinine Ratio 15.0 Glucose 118 H Calcium 8.6 Assessment & Plan Post-op Postoperative Procedures Operation Date: 12/15/18 17:00 Actual Procedures Side Surgeon p Hip Hemiarthroplasty Right Iraj Brar MD Patient is to work with physical therapy later this morning. She is full weight bearing with posterior hip precautions. She has a jacquard loom card changer at home who would be willing to assist in her care, discussed the rehab necessary may require SNF and that they should work with PT and complete caregiver training to assess this. Quality VTE Deep Vein Thrombosis/Pulmonary Embolism Present on Admission: No
[2018-12-16] MEDS: SODIUM CHLORIDE 0.9% FLUSH 10 ML IV ×2 (09:20→18:49)
[2018-12-16] MEDS: ENOXAPARIN 40 MG/0.4 ML SYRINGE SUBCUT (09:20)
[2018-12-16] MEDS: MELOXICAM 7.5 MG TABLET 15 MG PO (09:20)
[2018-12-16] MEDS: ATORVASTATIN 10 MG TABLET PO (09:20)
[2018-12-16] MEDS: ACYCLOVIR 400 MG TABLET PO (09:20)
[2018-12-16] MEDS: ESCITALOPRAM 10 MG TABLET 20 MG PO (09:20)
[2018-12-16] MEDS: LISINOPRIL 20 MG TABLET PO (09:21)
[2018-12-16] MEDS: ACETAMINOPHEN 325 MG TABLET 650 MG PO ×2 (09:21→18:49)
[2018-12-16] MEDS: PANTOPRAZOLE 40 MG TABLET PO (09:21)
[2018-12-16] MEDS: DOCUSATE 100 MG CAPSULE PO ×2 (09:21→18:49)
--- NOTE | 2018-12-16 10:20 | PT.IIE ---
Current Diagnoses Unspecified intracapsular fracture of right femur, initial encounter for closed fracture (12/15/18) Surgery Performed Operation Date: 12/15/18 17:00 Actual Procedures p Hip Hemiarthroplasty(Right) - Iraj Brar MD Medical History (Last Reviewed 12/15/18 @ 08:49 by Iraj Brar MD) Depression with anxiety (Acute) GERD (gastroesophageal reflux disease) (Acute) History of hysterectomy (Acute) Hx of syncope (Acute) Hypertension (Acute) Hypothyroidism (Acute) Physical Therapy Inpatient Evaluation/Re-Eval M1 PT/OT-IP Prior Functional Status Start: 12/16/18 11:48 Freq: NEEDED Status: Active Protocol: Document 12/16/18 10:20 AB (Rec: 12/16/18 12:58 AB [id number]) Medical Review Prior Functional Status Medical History Reviewed Yes Communication able to make needs known Mobility and Gait pt stated that she is independent with all mobilities and ambulation without AD Social History Household Members significant other Living Arrangements House Number of Floors (Floors) Two Floors Number of Stairs To Enter/Railing? pt stays on main level of the house has a ramp to enter Home Environment Standard Height Toilet Walk in Shower Ramp Home Equipment Hand Held Shower Additional Social History Comment pt stated that she has a bidet that is separate from her toilet M2 PT-IP Current Condition Start: 12/16/18 11:48 Freq: NEEDED Status: Active Protocol: Document 12/16/18 10:20 AB (Rec: 12/16/18 12:58 AB [id number]) Physical Therapy Current Condition Current Condition Evaluation Date 12/16/18 Treatment Diagnosis R femoral neck fx s/p R hemiarthroplasty; difficulty in walking Onset Date 12/15/18 Precautions Posterior Hip Precautions No Hip Flexion > 90 degrees No Hip Internal Rotation No Hip Adduction Shoulder Precautions Sling Weight Bearing Status Weight Bearing Status Weight Bear as Tolerated Allowed Weight Bearing Amount (enter % RLE WBAT or #) (%) RUE NWB M3 PT-IP Subjective Start: 12/16/18 11:48 Freq: NEEDED Status: Active Protocol: Document 12/16/18 10:20 AB (Rec: 12/16/18 12:58 AB [id number]) Subjective Physical Therapy Visit Type Type Initial Evaluation Visit Start Time 10:20 Visit Stop Time 11:47 Total Visit Minutes 87 Notes talked to PA regarding precautions for RUE. Pt with R shoulder fx/dislocation 01/18 and was reduced at [facility] and pt was put on a sling. pt was not on a sling when PT checked. requested precaution orders and parameters for sling from PA. PA ordered sling on but may be off for hygiene care and NWB for RUE. Talked to pt regarding PA's orders. A few minutes later PA came in and stated that Dr. Brar stated that pt is WBAT on RUE but only use RUE when really necessary and pt can be off sling in bed for positioning/ elbow/hand movement only if necessary. At this time, PT will follow NWB on RUE and sling on at all times except for hygiene care. Number of MATCHER LEATHER PARTS Visits 0 Physical Therapy Visit Comments Patient Comments pt agreeable to do PT Therapy Pain Assessment Pain When Pain Assessed At Rest Pain Present Pain Present Pain Reported Location Right Shoulder Intensity 6 Scale Used Numeric (1 - 10) Pain Management Techniques Apply Cold Timing of Activity with Medications Right Hip Intensity 6 Scale Used 8/10 with movement Pain Management Techniques Apply Cold Timing of Activity with Medications M4 PT-IP Mobility and Gait Start: 12/16/18 11:48 Freq: NEEDED Status: Active Protocol: Document 12/16/18 10:20 AB (Rec: 12/16/18 12:58 AB [id number]) PT-Bed Mobility Assessment Supine to Sit Supine to Sit Maximum Assistance 1 Person Assistance 2 Person Assistance Head of Bed Elevated Sit to Supine Sit to Supine Maximum Assistance 2 Person Assistance Scooting Scooting to Edge of Bed Maximum Assistance Scooting Up and Down in Bed Dependent PT-Transfer Assessment Sit to and From Stand Sit to and from Stand Maximum Assistance 1 Person Assistance 2 Person Assistance Use of Upper Extremities Equipment Transfer Assistive Device Gait Belt John Walker Orthotic/Prosthetic Devices or Brace: Yes Comments Mobility Comments pt completed bed mobility supine to sit with HOB elevated max A x 1-2 and max cues. BP in sitting 138/55. pt completed sit to stand max A and max cues for precautions using hemiwalker for support. pt c/o lightheadedness. instructed pt to sit back requiring max A and cues. BP checkec: 110/53. NAC present to assist. pt completed sit to stand again max A x 1-2 and max cues using hemiwalker for support . pt seems to have difficulty focusing and closing her eyes. assisted pt to sit down max A x 2. assisted pt in bed max A x 2. positioned pt in bed total A x2. BP checked: 133/55. nurse informed. pt stated that she has h/o fainting before and was due to anxiety. Gait Assessment Comments Gait Comments unable at this time PT-Balance Assessment Sitting Balance and Reactions Static Sitting Balance Ability Good Dynamic Sitting Balance Ability Fair Standing Balance and Reactions Static Standing Balance Ability Poor Dynamic Standing Balance Ability Poor Device Used hemiwalker M5 PT-IP Objective Assessments Start: 12/16/18 11:48 Freq: NEEDED Status: Active Protocol: Document 12/16/18 10:20 AB (Rec: 12/16/18 12:58 AB [id number]) Orientation Orientation/Cognition Level of Alertness Alert Orientation Name Place Situation Language Function Ability No Deficits Noted Safety Awareness Decreased Safety Awareness Memory Description Short Term Impaired Gross Range of Motion Lower Extremity ROM Assessment Within Functional Limits Strength Lower Extremity Strength Assessment Right Impaired Hip 3-/5 Knee 3+/5 Coordination Assessment Gross Coordination Gross Coordination WNL Sensation Assessment Sensation Gross Sensation WNL Muscle Tone Muscle Tone WNL Yes M6 PT-IP Treatment Start: 12/16/18 11:48 Freq: NEEDED Status: Active Protocol: Document 12/16/18 10:20 AB (Rec: 12/16/18 12:58 AB [id number]) Physical Therapy Treatment Exercises Exercises Ankle Pumps Gluteal Sets Quad Sets Heel Slides Education Education Provided Precautions Weight Bearing Status Post-Op Packet Safety Other Treatments Other Treatment Performed reviewed hip precautions with pt. pt requires cues to maintain precautions during mobility. M7 PT-IP Assessment and Plan Start: 12/16/18 11:48 Freq: NEEDED Status: Active Protocol: Document 12/16/18 10:20 AB (Rec: 12/16/18 12:58 AB [id number]) PT Summary Assessment and Plan Potential Rehabilitation Potential Fair Status of Condition at Evaluation Evolving Summary Impairments Pain ROM Strength Balance Coordination Cognition Bed Mobility Transfers Gait Activity Tolerance Assessment Summary pt requires max A x 2 with mobility and unable to tolerate much activity this morning. pt lives with her significant other but he will not be able to assist pt due to his own medical issues. pt will require SNF rehab to improve strength and mobility. Goals Bed Mobility Goal Contact Guard Assistance Transfer Goal Contact Guard Assistance Cane Gait Goal Contact Guard Assistance Cane John Walker Gait Distance 50 Days to Meet Goals 10 Frequency of Treatment Frequency Of Treatment Twice a Day Treatment Plan Physical Therapy Treatment Plan Bed Mobility Training Transfer Training Gait Training Therapeutic Exercise Balance Retraining Post Op Education Discharge Planning Hot or Cold Pack Neuromuscular Re-ed Coordination Retraining Manual Therapy Other Recommendations and Next Treatment transfers, ambulation Focus Recommendations To Nursing Amount of Assist Needed PT/OT Assist Only Mechanical Lift Discharge Recommendations PT Discharge Recommendations SNF Rehab
--- NOTE | 2018-12-16 10:20 | PT.IIE ---
Current Diagnoses Unspecified intracapsular fracture of right femur, initial encounter for closed fracture (12/15/18) Surgery Performed Operation Date: 12/15/18 17:00 Actual Procedures p Hip Hemiarthroplasty(Right) - Iraj Brar MD Medical History (Last Reviewed 12/15/18 @ 08:49 by Iraj Brar MD) Depression with anxiety (Acute) GERD (gastroesophageal reflux disease) (Acute) History of hysterectomy (Acute) Hx of syncope (Acute) Hypertension (Acute) Hypothyroidism (Acute) Physical Therapy Inpatient Evaluation/Re-Eval M1 PT/OT-IP Prior Functional Status Start: 12/16/18 11:48 Freq: NEEDED Status: Active Protocol: Document 12/16/18 10:20 AB (Rec: 12/16/18 12:58 AB [id number]) Medical Review Prior Functional Status Medical History Reviewed Yes Communication able to make needs known Mobility and Gait pt stated that she is independent with all mobilities and ambulation without AD Social History Household Members significant other Living Arrangements House Number of Floors (Floors) Two Floors Number of Stairs To Enter/Railing? pt stays on main level of the house has a ramp to enter Home Environment Standard Height Toilet Walk in Shower Ramp Home Equipment Hand Held Shower Additional Social History Comment pt stated that she has a bidet that is separate from her toilet M2 PT-IP Current Condition Start: 12/16/18 11:48 Freq: NEEDED Status: Active Protocol: Document 12/16/18 10:20 AB (Rec: 12/16/18 12:58 AB [id number]) Physical Therapy Current Condition Current Condition Evaluation Date 12/16/18 Treatment Diagnosis R femoral neck fx s/p R hemiarthroplasty; difficulty in walking Onset Date 12/15/18 Precautions Posterior Hip Precautions No Hip Flexion > 90 degrees No Hip Internal Rotation No Hip Adduction Shoulder Precautions Sling Weight Bearing Status Weight Bearing Status Weight Bear as Tolerated Allowed Weight Bearing Amount (enter % RLE WBAT or #) (%) RUE NWB M3 PT-IP Subjective Start: 12/16/18 11:48 Freq: NEEDED Status: Active Protocol: Document 12/16/18 10:20 AB (Rec: 12/16/18 12:58 AB [id number]) Subjective Physical Therapy Visit Type Type Initial Evaluation Visit Start Time 10:20 Visit Stop Time 11:47 Total Visit Minutes 87 Notes talked to PA regarding precautions for RUE. Pt with R shoulder fx/dislocation 01/18 and was reduced at [facility] and pt was put on a sling. pt was not on a sling when PT checked. requested precaution orders and parameters for sling from PA. PA ordered sling on but may be off for hygiene care and NWB for RUE. Talked to pt regarding PA's orders. A few minutes later PA came in and stated that Dr. Brar stated that pt is WBAT on RUE but only use RUE when really necessary and pt can be off sling in bed for positioning/ elbow/hand movement only if necessary. At this time, PT will follow NWB on RUE and sling on at all times except for hygiene care. Number of HONEYCOMB DECAPPER Visits 0 Physical Therapy Visit Comments Patient Comments pt agreeable to do PT Therapy Pain Assessment Pain When Pain Assessed At Rest Pain Present Pain Present Pain Reported Location Right Shoulder Intensity 6 Scale Used Numeric (1 - 10) Pain Management Techniques Apply Cold Timing of Activity with Medications Right Hip Intensity 6 Scale Used 8/10 with movement Pain Management Techniques Apply Cold Timing of Activity with Medications M4 PT-IP Mobility and Gait Start: 12/16/18 11:48 Freq: NEEDED Status: Active Protocol: Document 12/16/18 10:20 AB (Rec: 12/16/18 12:58 AB [id number]) PT-Bed Mobility Assessment Supine to Sit Supine to Sit Maximum Assistance 1 Person Assistance 2 Person Assistance Head of Bed Elevated Sit to Supine Sit to Supine Maximum Assistance 2 Person Assistance Scooting Scooting to Edge of Bed Maximum Assistance Scooting Up and Down in Bed Dependent PT-Transfer Assessment Sit to and From Stand Sit to and from Stand Maximum Assistance 1 Person Assistance 2 Person Assistance Use of Upper Extremities Equipment Transfer Assistive Device Gait Belt Front Wheeled Walker Orthotic/Prosthetic Devices or Brace: Yes Comments Mobility Comments pt completed bed mobility supine to sit with HOB elevated max A x 1-2 and max cues. BP in sitting 138/55. pt completed sit to stand max A and max cues for precautions using hemiwalker for support. pt c/o lightheadedness. instructed pt to sit back requiring max A and cues. BP checkec: 110/53. NAC present to assist. pt completed sit to stand again max A x 1-2 and max cues using hemiwalker for support . pt seems to have difficulty focusing and closing her eyes. assisted pt to sit down max A x 2. assisted pt in bed max A x 2. positioned pt in bed total A x2. BP checked: 133/55. nurse informed. pt stated that she has h/o fainting before and was due to anxiety. Gait Assessment Comments Gait Comments unable at this time PT-Balance Assessment Sitting Balance and Reactions Static Sitting Balance Ability Good Dynamic Sitting Balance Ability Fair Standing Balance and Reactions Static Standing Balance Ability Poor Dynamic Standing Balance Ability Poor Device Used hemiwalker M5 PT-IP Objective Assessments Start: 12/16/18 11:48 Freq: NEEDED Status: Active Protocol: Document 12/16/18 10:20 AB (Rec: 12/16/18 12:58 AB [id number]) Orientation Orientation/Cognition Level of Alertness Alert Orientation Name Place Situation Language Function Ability No Deficits Noted Safety Awareness Decreased Safety Awareness Memory Description Short Term Impaired Gross Range of Motion Lower Extremity ROM Assessment Within Functional Limits Strength Lower Extremity Strength Assessment Right Impaired Hip 3-/5 Knee 3+/5 Coordination Assessment Gross Coordination Gross Coordination WNL Sensation Assessment Sensation Gross Sensation WNL Muscle Tone Muscle Tone WNL Yes M6 PT-IP Treatment Start: 12/16/18 11:48 Freq: NEEDED Status: Active Protocol: Document 12/16/18 10:20 AB (Rec: 12/16/18 12:58 AB [id number]) Physical Therapy Treatment Exercises Exercises Ankle Pumps Gluteal Sets Quad Sets Heel Slides Education Education Provided Precautions Weight Bearing Status Post-Op Packet Safety Other Treatments Other Treatment Performed reviewed hip precautions with pt. pt requires cues to maintain precautions during mobility. M7 PT-IP Assessment and Plan Start: 12/16/18 11:48 Freq: NEEDED Status: Active Protocol: Document 12/16/18 10:20 AB (Rec: 12/16/18 12:58 AB [id number]) PT Summary Assessment and Plan Potential Rehabilitation Potential Fair Status of Condition at Evaluation Evolving Summary Impairments Pain ROM Strength Balance Coordination Cognition Bed Mobility Transfers Gait Activity Tolerance Assessment Summary pt requires max A x 2 with mobility and unable to tolerate much activity this morning. pt lives with her significant other but he will not be able to assist pt due to his own medical issues. pt will require SNF rehab to improve strength and mobility. Goals Bed Mobility Goal Contact Guard Assistance Transfer Goal Contact Guard Assistance Gait Goal Contact Guard Assistance Cane John Walker Gait Distance 50 Days to Meet Goals 10 Frequency of Treatment Frequency Of Treatment Twice a Day Treatment Plan Physical Therapy Treatment Plan Bed Mobility Training Transfer Training Gait Training Therapeutic Exercise Balance Retraining Post Op Education Discharge Planning Hot or Cold Pack Neuromuscular Re-ed Coordination Retraining Manual Therapy Other Recommendations and Next Treatment transfers, ambulation Focus Recommendations To Nursing Amount of Assist Needed PT/OT Assist Only Mechanical Lift Discharge Recommendations PT Discharge Recommendations SNF Rehab
--- NOTE | 2018-12-16 13:07 | CM.DPC ---
DCP Cont: Checked in with patient. Alert and oriented, pleasant. Her partner, significant other, Harvey, at bedside. Discussed discharge planning. She stated, she knows she shouldn't go home, because it would be too much for Harvey at this time, to take care of me. Discussed [facility], for they have accepted her as a patient. Patient stated, I have been there before, and I just don't want to have a room-mate that's old, or really sick, for it's depressing. Discussed option of her having a private room, but let her know that she could potentially have to pay, and she stated, she would be ok with it, because she wants her partner, Harvey, to come and go as he pleases to visit her. Let her know that this rn field case manager would discuss this with Anatoliy in admissions today. Spoke to Anatoliy, he stated that they may be able to give her own room, and to keep it reserved from her having a room-mate. He stated that he would let this strategic planner know today. Patient updated. Went ahead and completed her PASSR. She is currently working with O.T, P.T, who are also recommending alf rehab. P: DCP to continue to follow. Will update patient regarding private room. She will be eligible on Tuesday, for this will be her third midnight. Updated VALARIE Daly in [facility], as well. Denisa Perez RN/Structural Layout Worker
--- NOTE | 2018-12-16 15:54 | OT.IP.EVAL ---
Current Diagnoses Unspecified intracapsular fracture of right femur, initial encounter for closed fracture (12/15/18) Surgery Performed Operation Date: 12/15/18 17:00 Actual Procedures p Hip Hemiarthroplasty(Right) - Iraj Brar MD Past Medical History (Last Reviewed 12/15/18 @ 08:49 by Iraj Brar MD) Depression with anxiety (Acute) GERD (gastroesophageal reflux disease) (Acute) History of hysterectomy (Acute) Hx of syncope (Acute) Hypertension (Acute) Hypothyroidism (Acute) Occupational Therapy Inpatient Evaluation/Re-Eval M1 PT/OT-IP Prior Functional Status Start: 12/16/18 11:48 Freq: NEEDED Status: Active Protocol: Document 12/16/18 15:42 CGR (Rec: 12/16/18 15:53 CGR [id number]) Medical Review Prior Functional Status Medical History Reviewed Yes Communication able to make needs known Mobility and Gait pt stated that she is independent with all mobilities and ambulation without AD Activities of Daily Living and IADL's Pt was IND in all ADLs and IADLs. Social History Household Members significant other Living Arrangements House Number of Floors (Floors) Two Floors Number of Stairs To Enter/Railing? pt stays on main level of the house has a ramp to enter Home Environment Standard Height Toilet Walk in Shower Ramp Home Equipment Hand Held Shower Employment Status Retired Additional Social History Comment pt stated that she has a bidet that is separate from her toilet M2 OT-IP Current Condition Start: 12/16/18 15:41 Freq: Status: Active Protocol: Document 12/16/18 15:42 CGR (Rec: 12/16/18 15:53 CGR [email or web address]) Occupational Therapy Current Condition Current Condition Evaluation Date 12/16/18 Treatment Diagnosis 12/15 R galina arthroplasty and recent dislocated R shld Weight Bearing Status Weight Bearing Status Non-Weight Bearing Allowed Weight Bearing Amount (enter % NWB to the R shld, WBAT to the or #) (%) RLE M3 OT- IP Subjective and Pain Start: 12/16/18 15:41 Freq: Status: Active Protocol: Document 12/16/18 15:42 CGR (Rec: 12/16/18 15:53 CGR [email or web address]) OT- Subjective Occupational Therapy Visit Type Type Initial Evaluation Visit Start Time 13:00 Visit Stop Time 14:13 Total Visit Minutes 73 OT Pain Assessment Pain When Pain Assessed At Rest Pain Present Pain Present Pain Reported Location Right Shoulder Intensity 2 Scale Used Numeric (1 - 10) Management Techniques Distraction Re-positioning Timing of Activity with Medications Right Hip Intensity 6 Scale Used Numeric (1 - 10) Management Techniques Apply Cold Distraction Re-positioning Timing of Activity with Medications M4 OT- IP ADL's Start: 12/16/18 15:41 Freq: Status: Active Protocol: Document 12/16/18 15:42 CGR (Rec: 12/16/18 15:53 CGR [id number]) OT [id number] Comments OT Self-Feeding Comments Not meal time OT ADL-Grooming Comments OT Grooming Comments Not performed OT ADL-Oral Care Comments Oral Care Comments Not performed OT ADL-Dressing General Eval Lower Body Dressing Ability Total Assistance Areas Needing Assistance Socks OT ADL-Toileting Comments OT Toileting Comments Pt still with taylor OT ADL-Bathing Comments OT Bathing Comments Not appropriate at this time. M5 OT- IP IADL's Start: 12/16/18 15:41 Freq: Status: Active Protocol: Document 12/16/18 15:42 CGR (Rec: 12/16/18 15:53 CGR [email or web address]) OT-Instrumental Activities of Daily Living Deficits IADL Deficits Identified No Deficits Home Safety Awareness Awareness of Need for Assistance at Home Good Awareness Ability to Problem Solve Emergency Able to Problem Solve Situations Medication Management Medication Management No Deficits Identified Money Management Money Management No Deficits Identified Meal Preparation Meal Preparation Caregiver Provides Assist Access Director Access Director Caregiver Provides Assist Driving Driving Caregiver Provides Assist M6 OT- IP Functional Cognition Start: 12/16/18 15:41 Freq: Status: Active Protocol: Document 12/16/18 15:42 CGR (Rec: 12/16/18 15:53 CGR [email or web address]) Cognitive Factors Limiting Selfcare Function Cognitive Ability Level of Alertness Alert Patient Orientation Name Age Birthday Month Date Year Day of Week Place Situation Attention Span Ability Capable of Focused Attention Capable of Sustained Attention Ability to Follow Commands Able to Follow Multi-Step Commands Memory Description No Deficits Noted Safety Awareness No Deficits Noted Problem Solving Ability No deficits Noted Executive Function Ability No Deficits Noted Abstract Thinking Ability No Deficits Noted OT- Vision and Hearing OT- Hearing Assessment OT- Hearing Assessment WFL OT- Vision Assessment Visual Acuity WFL Visual Attentiveness WFL Occular Pursuits WFL Visual Convergence WFL Visual Osei WFL M7 OT- IP Mobility and Balance Start: 12/16/18 15:41 Freq: Status: Active Protocol: Document 12/16/18 15:42 CGR (Rec: 12/16/18 15:53 CGR [email or web address]) OT- Bed Mobility Assessment Rolling Level of Assistance Minimal Assistance Head of Bed Elevated Bedrails Supine to Sit Supine to Sit Assist Minimal Assistance Head of Bed Elevated Bedrails Sit to Supine Sit to Supine Assist Total Assistance 1 Person Assistance Head of Bed Elevated Scooting Scooting to Edge of Bed Minimal Assistance Head of Bed Elevated Bedrails Scooting Up and Down in Bed Standby Assistance OT-Transfer Assessment Comments Mobility Comments Unable OT- Gait Assessment Comments Gait Ability Comments Not performed OT- Balance Assessment Sitting Balance and Reactions Static Sitting Balance Ability Normal Dynamic Sitting Balance Ability Good M8 OT- IP Objective Assessments Start: 12/16/18 15:41 Freq: Status: Active Protocol: Document 12/16/18 15:42 CGR (Rec: 12/16/18 15:53 CGR [email or web address]) OT Gross Range of Motion Upper Extremity Range of Motion Assessment Right Impaired OT Strength Upper Extremity Strength Assessment Within Functional Limits Comments Strength Comments R shld and arm not tested d/t recent dislocation. OT- Coordination Assessment Upper Extremity Finger to Nose Test Within Functional Limits Finger Tapping Test Within Functional Limits OT-Muscle Tone Assessment Muscle Tone WNL Yes OT Sensation Assessment Comments Summary Comments No deficits per pt report Edema Edema Present Edema Comments To RLE M9 OT- IP Assessment and Plan Start: 12/16/18 15:41 Freq: Status: Active Protocol: Document 12/16/18 15:42 CGR (Rec: 12/16/18 15:53 CGR [email or web address]) OT Summary Assessment and Plan Potential Rehabilitation Potential Excellent Analytic Complexity at Evaluation Moderate Summary OT Impairments Pain Range of Motion Strength Functional Mobility Grooming Dressing Toileting Bathing Toilet Transfers Shower Transfers Progress Towards Goals Progressing Toward Goals Assessment Summary Pt presents as a moderate complexity evaluation s/p recent fall with R shld dislocation, since reduced and in sling, and R hip fx since fixed with a galina arthroplasty on 12/15. Pt is highly motivated and but current barrier is what appears to be anxiety/panic attacks with vasovagal reactions where the pt will pass out if not reclined. Pt will benefit from continued therapy for mobility and ADLs. Discussed at length anxiety and ways to assist with preventing syncopal episodes. Pt is receptive. She will likely need rehab upon discharge. Goals Grooming Goal Independent Dressing Goal Independent Timber Watchman Sock Aid Toileting Goal Independent Bathing Goal Independent Toilet Transfer Goal Independent Shower Transfer Goal Independent Days to Meet Goals 10 Frequency of Treatment Frequency Of Treatment Once a Day Treatment Plan OT Treatment Plan ADL Training Functional Mobility Patient/Family Education Discharge Planning Discharge Recommendations OT Discharge Recommendations SNF Rehab
--- NOTE | 2018-12-16 16:00 | PT.IPTN ---
Current Diagnoses Unspecified intracapsular fracture of right femur, initial encounter for closed fracture (12/15/18) Surgery Performed Operation Date: 12/15/18 17:00 Actual Procedures p Hip Hemiarthroplasty(Right) - Iraj Brar MD Physical Therapy Treatment Note M2 PT-IP Current Condition Start: 12/16/18 11:48 Freq: NEEDED Status: Active Protocol: Document 12/16/18 10:20 AB (Rec: 12/16/18 12:58 AB [id number]) Physical Therapy Current Condition Current Condition Evaluation Date 12/16/18 Treatment Diagnosis R femoral neck fx s/p R hemiarthroplasty; difficulty in walking Onset Date 12/15/18 Precautions Posterior Hip Precautions No Hip Flexion > 90 degrees No Hip Internal Rotation No Hip Adduction Shoulder Precautions Sling Weight Bearing Status Weight Bearing Status Weight Bear as Tolerated Allowed Weight Bearing Amount (enter % RLE WBAT or #) (%) RUE NWB M3 PT-IP Subjective Start: 12/16/18 11:48 Freq: NEEDED Status: Active Protocol: Document 12/16/18 15:51 GGD (Rec: 12/16/18 15:59 GGD [id number]) Subjective Physical Therapy Visit Type Type Treatment Note Visit Start Time 13:21 Visit Stop Time 15:49 Total Visit Minutes 28 Number of LINEWORKER Visits 1 Physical Therapy Visit Comments Patient Comments Pt would like to get up. Therapy Pain Assessment Pain When Pain Assessed At Rest Pain Present Pain Present Pain Reported M4 PT-IP Mobility and Gait Start: 12/16/18 11:48 Freq: NEEDED Status: Active Protocol: Document 12/16/18 15:51 GGD (Rec: 12/16/18 15:59 GGD [id number]) PT-Bed Mobility Assessment Supine to Sit Supine to Sit Minimal Assistance 1 Person Assistance Head of Bed Elevated Bedrails Scooting Scooting to Edge of Bed Minimal Assistance PT-Transfer Assessment Sit to and From Stand Sit to and from Stand Minimal Assistance 1 Person Assistance Use of Upper Extremities Equipment Transfer Assistive Device Gait Belt John Walker Orthotic/Prosthetic Devices or Brace: Yes Transfers Transfer Destination Chair Transfer Ability Level of Assist Contact Guard Assistance Gait Assessment Gait Gait Assistance Required: Contact Guard Assist Minimum Assistance Distance (Feet) 10 Able to Maintain Weight Bearing Status Yes During Gait Assistive Devices Assistive Device Gait Belt John Walker Orthotic/Prosthetic Devices or Brace: Yes Gait Deviations General Gait Pattern Antalgic Decreased Stride Length Decreased Feet Clearance Step-to Gait Factors Limiting Gait Function Factors Limiting Gait Function Decreased Strength Limited Range of Motion Pain Poor Balance M5 PT-IP Objective Assessments Start: 12/16/18 11:48 Freq: NEEDED Status: Active Protocol: Document 12/16/18 10:20 AB (Rec: 12/16/18 12:58 AB [id number]) Orientation Orientation/Cognition Level of Alertness Alert Orientation Name Place Situation Language Function Ability No Deficits Noted Safety Awareness Decreased Safety Awareness Memory Description Short Term Impaired Gross Range of Motion Lower Extremity ROM Assessment Within Functional Limits Strength Lower Extremity Strength Assessment Right Impaired Hip 3-/5 Knee 3+/5 Coordination Assessment Gross Coordination Gross Coordination WNL Sensation Assessment Sensation Gross Sensation WNL Muscle Tone Muscle Tone WNL Yes M6 PT-IP Treatment Start: 12/16/18 11:48 Freq: NEEDED Status: Active Protocol: Document 12/16/18 15:51 GGD (Rec: 12/16/18 15:59 GGD [id number]) Physical Therapy Treatment Exercises Exercises Ankle Pumps Gluteal Sets Quad Sets Heel Slides Short Arc Quads Education Education Provided Precautions M7 PT-IP Assessment and Plan Start: 12/16/18 11:48 Freq: NEEDED Status: Active Protocol: Document 12/16/18 15:51 GGD (Rec: 12/16/18 15:59 GGD [id number]) PT Summary Assessment and Plan Summary Assessment Summary Pt is improving with mobility. She needed less assist with bed mobility. She was able to ambulate with john walker. She need mod cues for mobility. She is slow moving. Frequency of Treatment Frequency Of Treatment Twice a Day Recommendations To Nursing Amount of Assist Needed 2 Person Assist Discharge Recommendations PT Discharge Recommendations SNF Rehab
--- NOTE | 2018-12-16 19:43 | PC.NURSE ---
Addendum entered by Claudia Andersen R.N. 12/16/18 22:14: Pedal pulses present with doppler BL. BL calf scd's in place. Room air 91%. Head of bed elevated and encouraged and instructed pt in I.S. use. Pt able to use to 1300. Room air saturation level now 94%. S.O. arrives to visit with pt. Original Note: Pt mobilized by P.T. into recliner @ beginning of shift. Pt reports afternoon session of P.T. went much better than this morning. C/o spasm type pain to right groin and declines offer for pain meds, but accepts warm blanket to site. Administered oxycodone and tylenol in preparation for pt's transfer back into bed for sleep. Pt transfers with gait belt, four pronged cane and two staff members. Observes hip precautions well. Upon return to bed, ice to right shoulder and right hip. Sling removed from pt's right arm per pt request and this limb supported on pillow. Strong right radial pulse with warm and pink digits. Aquacel dressing to right hip is dry and intact. Pillow between legs with BL calf scd's replaced. Pt encouraged to call for needs. HS meds given @ this hour to allow for uninterrupted sleep. Johns to gravity with clear, yellow urine.
[2018-12-17] VITALS (9 sets, daily range): BP systolic 101–159; BP diastolic 50–63; PULSE 80–92; RESP 15–17; TEMP 36.6–37.3; O2SAT 93–97
[2018-12-17] MEDS: ONDANSETRON 4 MG/2 ML INJ IV (05:35)
[2018-12-17] MEDS: HYDROCODONE/ACET 5/325 TABLET 1 TAB PO ×2 (05:53→11:04)
[2018-12-17] MEDS: LEVOTHYROXINE 25 MCG TABLET PO (05:54)
--- NOTE | 2018-12-17 09:30 | P.PN_ITS ---
Subjective Date Patient Seen: 12/17/18 Time Patient Seen: 09:26 Interval history: Postop day 2 right hip hemiarthroplasty. Non operative treatment right proximal humerus fracture. Patient is doing well. Sitting up in bed. Pain controlled. Questions answered regarding use of right arm. Patient desires rehab discharge due to living situation. Denies fevers chills nausea or vomiting. Exam Vital Signs (past 8 hours): - 12/17/18 05:40 12/17/18 07:40 Temperature 98.3 F 98 F Pulse Rate 87 87 Respiratory Rate 16 16 Blood Pressure 128/50 L 114/56 L Pulse Oximetry 97 93 Oxygen Delivery Method Room Air Oxygen Flow Rate 0 Narrative Exam Narrative: Alert oriented no acute distress. Breathing unlabored on room air CV regular rate and rhythm Vital signs stable Right lower extremity: Aquacel dressing in place. Thigh and calf were soft. Demonstrates active dorsiflexion plantar flexion of her ankle. Sensation grossly intact to light touch. SCDs in place. Right upper extremity: Demonstrates active wrist flexion extension active elbow flexion extension. Sensation grossly intact to light touch. Objective Labs Result Diagrams: 12/16/18 07:05 12/16/18 07:05 Assessment & Plan Post-op (1) Closed fracture of right proximal humerus: Postoperative Procedures Operation Date: 12/15/18 17:00 Actual Procedures Side Surgeon p Hip Hemiarthroplasty Right Iraj Brar MD Postop day 2 right hip galina arthroplasty, posterior approach. And conservative treatment after reduction of right proximal humerus fracture dislocation at outside hospital 1. Weight bear as tolerated right lower extremity, posterior hip precautions. 2. May weight bear as tolerated on right upper extremity-may benefit from platform walker. Discussed avoiding 90/90 the external rotation abduction position 3. Lovenox for DVT prophylaxis and SCDs 4. DC to shelter facility/rehab for primary 5. Follow-up orthopedic clinic 2 weeks 6. Recommend calcium/vitamin-D/osteoporosis workup Quality VTE Deep Vein Thrombosis/Pulmonary Embolism Present on Admission: No
[2018-12-17] MEDS: ENOXAPARIN 40 MG/0.4 ML SYRINGE SUBCUT (09:40)
[2018-12-17] MEDS: MELOXICAM 7.5 MG TABLET 15 MG PO (09:40)
[2018-12-17] MEDS: ACYCLOVIR 400 MG TABLET PO (09:40)
[2018-12-17] MEDS: DOCUSATE 100 MG CAPSULE PO (09:40)
[2018-12-17] MEDS: ATORVASTATIN 10 MG TABLET PO (09:40)
[2018-12-17] MEDS: PANTOPRAZOLE 40 MG TABLET PO (09:41)
[2018-12-17] MEDS: LISINOPRIL 20 MG TABLET PO (09:41)
[2018-12-17] MEDS: ESCITALOPRAM 10 MG TABLET 20 MG PO (09:41)
--- NOTE | 2018-12-17 09:44 | PT.IPTN ---
Current Diagnoses Unspecified fracture of upper end of right humerus, initial encounter for closed fracture (12/15/18) Unspecified intracapsular fracture of right femur, initial encounter for closed fracture (12/15/18) Surgery Performed Operation Date: 12/15/18 17:00 Actual Procedures p Hip Hemiarthroplasty(Right) - Iraj Brar MD Physical Therapy Treatment Note M2 PT-IP Current Condition Start: 12/16/18 11:48 Freq: NEEDED Status: Active Protocol: Document 12/16/18 10:20 AB (Rec: 12/16/18 12:58 AB [id number]) Physical Therapy Current Condition Current Condition Evaluation Date 12/16/18 Treatment Diagnosis R femoral neck fx s/p R hemiarthroplasty; difficulty in walking Onset Date 12/15/18 Precautions Posterior Hip Precautions No Hip Flexion > 90 degrees No Hip Internal Rotation No Hip Adduction Shoulder Precautions Sling Weight Bearing Status Weight Bearing Status Weight Bear as Tolerated Allowed Weight Bearing Amount (enter % RLE WBAT or #) (%) RUE NWB M3 PT-IP Subjective Start: 12/16/18 11:48 Freq: NEEDED Status: Active Protocol: Document 12/17/18 09:09 CLB (Rec: 12/17/18 12:15 CLB [id number]) Subjective Physical Therapy Visit Type Type Treatment Note Visit Start Time 09:09 Visit Stop Time 09:44 Total Visit Minutes 25 Notes TOY ASSEMBLER WOOD present during tx. Number of REPORTING ANALYST Visits 2 Physical Therapy Visit Comments Patient Comments Pt would like to get up and use the BSC. Therapy Pain Assessment Pain When Pain Assessed During Mobility Pain Present Pain Present Pain Reported Location Right Hip Intensity 4 Scale Used Numeric (1 - 10) Pain Management Techniques Apply Cold Timing of Activity with Medications M4 PT-IP Mobility and Gait Start: 12/16/18 11:48 Freq: NEEDED Status: Active Protocol: Document 12/17/18 09:09 CLB (Rec: 12/17/18 12:15 CLB [id number]) PT-Bed Mobility Assessment Supine to Sit Supine to Sit Minimal Assistance 1 Person Assistance Head of Bed Elevated Scooting Scooting to Edge of Bed Minimal Assistance PT-Transfer Assessment Sit to and From Stand Sit to and from Stand Minimal Assistance 1 Person Assistance Use of Upper Extremities Equipment Transfer Assistive Device Gait Belt John Walker Orthotic/Prosthetic Devices or Brace: Yes Transfers Transfer Destination Chair Bedside Commode Transfer Ability Level of Assist Contact Guard Assistance Comments Mobility Comments Pt required cues for hand placement for sit<>stand during transfer to [facility] [place] and was able to perform own pericare. Pt attempted to stand at sink to brush teeth but was fatigued and brushed teeth while sitting on BSC, pt able to brush her hair with LUE. Gait Assessment Gait Gait Assistance Required: Contact Guard Assist Minimum Assistance Distance (Feet) 10 Able to Maintain Weight Bearing Status Yes During Gait Assistive Devices Assistive Device Gait Belt John Walker Orthotic/Prosthetic Devices or Brace: Yes Gait Deviations General Gait Pattern Antalgic Decreased Stride Length Decreased Feet Clearance Step-to Gait Factors Limiting Gait Function Factors Limiting Gait Function Decreased Strength Limited Range of Motion Pain Poor Balance Comments Gait Comments Pt ambulated to sink, after brushing her teeth while seated pt ambulated back to chair. Pt reported 4/10 pain of right hip with ambulation. M5 PT-IP Objective Assessments Start: 12/16/18 11:48 Freq: NEEDED Status: Active Protocol: Document 12/16/18 10:20 AB (Rec: 12/16/18 12:58 AB [id number]) Orientation Orientation/Cognition Level of Alertness Alert Orientation Name Place Situation Language Function Ability No Deficits Noted Safety Awareness Decreased Safety Awareness Memory Description Short Term Impaired Gross Range of Motion Lower Extremity ROM Assessment Within Functional Limits Strength Lower Extremity Strength Assessment Right Impaired Hip 3-/5 Knee 3+/5 Coordination Assessment Gross Coordination Gross Coordination WNL Sensation Assessment Sensation Gross Sensation WNL Muscle Tone Muscle Tone WNL Yes M6 PT-IP Treatment Start: 12/16/18 11:48 Freq: NEEDED Status: Active Protocol: Document 12/17/18 09:09 CLB (Rec: 12/17/18 12:15 CLB [id number]) Physical Therapy Treatment Exercises Exercises Ankle Pumps Gluteal Sets Quad Sets Seated Knee Flexion/Extension Education Education Provided Precautions Other Treatments Other Treatment Performed Pt recalled 2/3 precautions. M7 PT-IP Assessment and Plan Start: 12/16/18 11:48 Freq: NEEDED Status: Active Protocol: Document 12/17/18 09:09 CLB (Rec: 12/17/18 12:15 CLB [id number]) PT Summary Assessment and Plan Summary Assessment Summary Pt continues to improve with bed mobility but is unable to ambulate increased distance due to decreased activity tolerance. Goals Bed Mobility Goal Contact Guard Assistance Transfer Goal Contact Guard Assistance Cane Gait Goal Contact Guard Assistance Cane John Walker Gait Distance 50 Days to Meet Goals 10 Frequency of Treatment Frequency Of Treatment Twice a Day Treatment Plan Physical Therapy Treatment Plan Bed Mobility Training Transfer Training Gait Training Therapeutic Exercise Balance Retraining Post Op Education Discharge Planning Hot or Cold Pack Neuromuscular Re-ed Coordination Retraining Manual Therapy Other Recommendations and Next Treatment transfers, ambulation Focus Recommendations To Nursing Amount of Assist Needed 2 Person Assist Discharge Recommendations PT Discharge Recommendations SNF Rehab
--- NOTE | 2018-12-17 09:57 | P.PN_ITS ---
Subjective Date Patient Seen: 12/17/18 Time Patient Seen: 07:50 Interval history: Dionna Yao is a pleasant 78 y.o. female with hypertension, hyperlipidemia and hypothyroidism now postoperative day 2 after right hemiarthroplasty after a mechanical fall. She complains of mild right hip pain and occasional muscle spasms, but states that her pain is adequately controlled with medications. She denies chest pain, shortness of breath, cough, nausea, vomiting, abdominal pain, numbness, tingling. She had some mild dyspepsia which improved with omeprazole yesterday. She has not yet had a bowel movement after surgery but she reports passing gas. Johns catheter was removed this morning, s he felt the need to void but had not yet as of my interview. Exam Vital Signs (past 8 hours): - 12/17/18 05:40 12/17/18 07:40 12/17/18 09:41 Temperature 98.3 F 98 F Pulse Rate 87 87 86 Respiratory Rate 16 16 Blood Pressure 128/50 L 114/56 L 115/56 L Pulse Oximetry 97 93 Oxygen Delivery Method Room Air Oxygen Flow Rate 0 Narrative Exam Narrative: GENERAL APPEARANCE: Well developed, well nourished, in no acute distress. SKIN: Inspection of the skin reveals no rashes, ulcerations or petechiae. HEENT: The sclerae were anicteric and conjunctivae were pink and moist. Extraocular movements were intact and pupils were equal, round, and reactive to light with normal accommodation. External inspection of the ears and nose showed no scars, lesions, or masses. Lips, teeth, and gums showed normal mucosa. The oral mucosa, hard and soft palate, tongue and posterior pharynx were normal. NECK: Supple and symmetric. There was no thyroid enlargement, and no tenderness, or masses were felt. CHEST: Normal AP diameter and normal contour without any kyphoscoliosis. LUNGS: Auscultation of the lungs revealed no wheezes, rhonchi, or rales. CARDIOVASCULAR: There was a regular rate and rhythm without any murmurs, gallops, rubs. The carotid pulses were normal and 2+ bilaterally without bruits. Peripheral pulses were 2+ and symmetric. ABDOMEN: Soft and nontender with normal bowel sounds. No ascites was noted. MUSCULOSKELETAL: Mild tenderness around surgical site. Dressing is clear, dry, and intact. Thigh was soft. EXTREMITIES: No cyanosis, clubbing or edema. NEUROLOGIC: Alert and oriented x 3. Normal affect. Sensation to touch was normal. Objective Labs Result Diagrams: 12/16/18 07:05 12/16/18 07:05 Assessment & Plan Assessment & Plan narrative: Dionna Yao will be admitted to the inpatient service with Orthopedic Surgery consulting for a non-displaced right femoral neck fracture. 1. Non-displaced R. femoral neck fracture - now s/p R hemiarthroplasty on 12/15/18. Doing well after surgery. - pain control as needed - PT continuing to follow - Recommended for rehab - appreciate orthopedic surgery consult 2. Acute blood loss anemia - Hg 11.3 yesterday from baseline of 12, pending lab draw today. Due to surgical interventions as noted above. - continue to monitor with CBC daily. 3. Leukocytosis - Mild at 11.7 yesterday. Likely secondary to operative interventions as above. No clinical evidence of infection currently. Patient has not voided yet but denies abdominal pain. She has no cough, fevers or chills. Her surgical site appears clear dry and intact and is appropriately tender. - continue to monitor 4. Hypertension, chronic and stable continued on her home dose of lisinopril 20 mg po daily 5. Hyperlipidemia, chronic and stable Continue on her home dose of atorvastatin 10 mg po daily 6. Hypothyroidism, chronic and stable Continue on her home dose of levothyroxine 25 mcg daily VTE Prophylaxis: Lovenox daily Disposition: [facility] likely 12/18. Code status: Full Code Quality VTE Deep Vein Thrombosis/Pulmonary Embolism Present on Admission: No
[2018-12-17] MEDS: BISACODYL 5 MG TABLET 10 MG PO (11:05)
[2018-12-17] MEDS: SODIUM CHLORIDE 0.9% FLUSH 10 ML IV (11:05)
[2018-12-17 13:01] LABS: Add Manual Diff / Slide Review NO; Basophils Absolute Auto 100 /uL (0-100); Basophils Percent Auto 0.7 % (0-2); Eosinophils Absolute Auto 0 /uL (0-450); Eosinophils Percent Auto 0.4 % (2-4); Hematocrit 31.3 % (36-46); Hemoglobin 10.5 g/dL (12.0-16.0); Lymphocytes Absolute Auto 1600 /uL (1100-4500); Lymphocytes Percent Auto 15.3 % (25-40); Mean Corpuscular HGB Conc 33.5 % (30-36); Mean Corpuscular Volume 98.5 fL (80-100); Monocytes Absolute Auto 900 /uL (0-900); Monocytes Percent Auto 8.6 % (3-14); Neutrophils Absolute Auto 8000 /uL (1500-7000); Platelet Count 235 X10^3/uL (150-400); Red Blood Cell Count 3.18 X10^6/uL (4.0-5.2); Red Cell Distribution Width 13.4 % (11.6-14.8); White Blood Cell Count 10.7 X10^3/uL (4.5-11.0)
[2018-12-17 13:06] LABS: BUN Creatinine Ratio 14.3 (6-22); Blood Urea Nitrogen 10 mg/dL (7-17); Calcium 8.6 mg/dL (8.4-10.2); Carbon Dioxide 27 mmol/L (22-32); Chloride 99 mmol/L (98-107); Estimated Glomerular Filt Rate > 60.0 mL/min (>60); Glucose 112 mg/dL (80-110); HEMOLYSIS < 15 (0-50); Magnesium 1.8 mg/dL (1.6-2.3); Potassium 4.2 mmol/L (3.4-5.1); Sodium 133 mmol/L (137-145)
--- NOTE | 2018-12-17 13:27 | PT.IPTN ---
Current Diagnoses Unspecified fracture of upper end of right humerus, initial encounter for closed fracture (12/15/18) Unspecified intracapsular fracture of right femur, initial encounter for closed fracture (12/15/18) Surgery Performed Operation Date: 12/15/18 17:00 Actual Procedures p Hip Hemiarthroplasty(Right) - Iraj Brar MD Physical Therapy Treatment Note M2 PT-IP Current Condition Start: 12/16/18 11:48 Freq: NEEDED Status: Active Protocol: Document 12/16/18 10:20 AB (Rec: 12/16/18 12:58 AB [id number]) Physical Therapy Current Condition Current Condition Evaluation Date 12/16/18 Treatment Diagnosis R femoral neck fx s/p R hemiarthroplasty; difficulty in walking Onset Date 12/15/18 Precautions Posterior Hip Precautions No Hip Flexion > 90 degrees No Hip Internal Rotation No Hip Adduction Shoulder Precautions Sling Weight Bearing Status Weight Bearing Status Weight Bear as Tolerated Allowed Weight Bearing Amount (enter % RLE WBAT or #) (%) RUE NWB M3 PT-IP Subjective Start: 12/16/18 11:48 Freq: NEEDED Status: Active Protocol: Document 12/17/18 12:42 CLB (Rec: 12/17/18 13:27 CLB [id number]) Subjective Physical Therapy Visit Type Type Treatment Note Visit Start Time 12:42 Visit Stop Time 13:14 Total Visit Minutes 32 Number of WOODWORK TEACHER Visits 3 Physical Therapy Visit Comments Patient Comments Pt would like to use the BSC then get back into bed. Therapy Pain Assessment Pain When Pain Assessed During Mobility Pain Present Pain Present Pain Reported Location Right Hip Scale Used pt did not state Pain Management Techniques Apply Cold Timing of Activity with Medications M4 PT-IP Mobility and Gait Start: 12/16/18 11:48 Freq: NEEDED Status: Active Protocol: Document 12/17/18 12:42 CLB (Rec: 12/17/18 13:27 CLB [id number]) PT-Bed Mobility Assessment Sit to Supine Sit to Supine Minimal Assistance 1 Person Assistance Bedrails Scooting Scooting Up and Down in Bed Standby Assistance PT-Transfer Assessment Sit to and From Stand Sit to and from Stand Moderate Assistance 1 Person Assistance Use of Upper Extremities Equipment Transfer Assistive Device Gait Belt John Walker Orthotic/Prosthetic Devices or Brace: Yes Transfers Transfer Destination Bed Bedside Commode Transfer Ability Level of Assist Contact Guard Assistance Comments Mobility Comments Pt required Mod A with sit<> stand from chair to BSC. Pt requires cues for hand placement during sit<>stand as she wants to just sit w/o reaching back for chair or putting leg forward to prevent hip flx >90 degrees. Gait Assessment Gait Gait Assistance Required: Contact Guard Assist Minimum Assistance Distance (Feet) 10 Able to Maintain Weight Bearing Status Yes During Gait Assistive Devices Assistive Device Gait Belt John Walker Orthotic/Prosthetic Devices or Brace: Yes Gait Deviations General Gait Pattern Antalgic Decreased Stride Length Decreased Feet Clearance Step-to Gait Factors Limiting Gait Function Factors Limiting Gait Function Decreased Strength Limited Range of Motion Pain Poor Balance M5 PT-IP Objective Assessments Start: 12/16/18 11:48 Freq: NEEDED Status: Active Protocol: Document 12/16/18 10:20 AB (Rec: 12/16/18 12:58 AB [id number]) Orientation Orientation/Cognition Level of Alertness Alert Orientation Name Place Situation Language Function Ability No Deficits Noted Safety Awareness Decreased Safety Awareness Memory Description Short Term Impaired Gross Range of Motion Lower Extremity ROM Assessment Within Functional Limits Strength Lower Extremity Strength Assessment Right Impaired Hip 3-/5 Knee 3+/5 Coordination Assessment Gross Coordination Gross Coordination WNL Sensation Assessment Sensation Gross Sensation WNL Muscle Tone Muscle Tone WNL Yes M6 PT-IP Treatment Start: 12/16/18 11:48 Freq: NEEDED Status: Active Protocol: Document 12/17/18 12:42 CLB (Rec: 12/17/18 13:27 CLB [id number]) Physical Therapy Treatment Exercises Exercises Gluteal Sets Quad Sets Heel Slides Supine Hip Abduction Education Education Provided Precautions Other Treatments Other Treatment Performed Pt recalled 2/3 precautions. M7 PT-IP Assessment and Plan Start: 12/16/18 11:48 Freq: NEEDED Status: Active Protocol: Document 12/17/18 12:42 CLB (Rec: 12/17/18 13:27 CLB [id number]) PT Summary Assessment and Plan Summary Impairments Pain ROM Strength Balance Coordination Cognition Bed Mobility Transfers Gait Activity Tolerance Assessment Summary Pt required increased assist with sit<>stand this afternoon requiring Mod A. Pt was able to get back into bed with Min A of LLE. Goals Bed Mobility Goal Contact Guard Assistance Transfer Goal Contact Guard Assistance Cane Gait Goal Contact Guard Assistance Cane John Walker Gait Distance 50 Days to Meet Goals 10 Frequency of Treatment Frequency Of Treatment Twice a Day Treatment Plan Physical Therapy Treatment Plan Bed Mobility Training Transfer Training Gait Training Therapeutic Exercise Balance Retraining Post Op Education Discharge Planning Hot or Cold Pack Neuromuscular Re-ed Coordination Retraining Manual Therapy Other Recommendations and Next Treatment transfers, ambulation Focus Recommendations To Nursing Amount of Assist Needed 2 Person Assist Discharge Recommendations PT Discharge Recommendations SNF Rehab
--- NOTE | 2018-12-17 13:30 | PC.NURSE ---
Patient's PIV leaking and tender, removed. Attempted to place again but unable to obtain and patient requesting to not have a new one attempted at this time. Dr. Mckenna notified, states it is ok to leave out IV at this time but attempt re-insertion should patient have a change in condition.
--- NOTE | 2018-12-17 15:06 | CM.DPC ---
DCP Cont: Spoke to patient today regarding update for her getting a private room. Anatoliy at [facility] stated that they could temporarily offer her a private room until Tuesday, room 19. Stated that after Tuesday, would cost 375.00 a day. Anatoliy also stated that they could attempt to get her a compatible room mate. Updated patient. She stated that she will go ahead with a regular room, and is hopeful to get a good roomate. Updated Anatoliy at [facility]. Patient should be able to discharge tomorrow. P: DCP to continue to follow. She should be able to discharge to [facility] tomorrow if medically stable, by Medicare guidelines. Denisa Perez RN/Pneumatic Systems Operator
[2018-12-17] MEDS: MAGNESIUM HYDROXIDE 30 ML UDC PO (16:27)
--- NOTE | 2018-12-17 23:40 | PC.NURSE ---
Addendum entered by Shannon Estrella R.N. 12/18/18 06:44: Slept well. Up to bathroom several times with quad cane and 1 assist. Continues to deny any pain. Original Note: Patient is alert and oriented. Breath sounds CTA with RA sat of 96%. HRR with elevated BP of 159/55 after getting back to bed from toileting. Denies nausea. BT present and had BM while up to [facility]. Needs assistance to move right leg as is only able to lift off bed slightly. Transferred to [facility] with 2 assist + quad cane but was able to get back to bed with 1 assist and quad cane. Right UE in sling with good CMS; bruising noted on medial upper arm. Aquacel dressing to right hip is CDI. Denies pain. Right pedal pulse is weak otherwise CMS is intact bilaterally. Wearing calf SCD's. Fall risk score is high and bed alarm is activated.
[2018-12-18 06:00] VITALS: BP 149/78; PULSE 97; RESP 16; TEMP 36.9; O2SAT 95
[2018-12-18 06:38] LABS: Add Manual Diff / Slide Review NO; Basophils Absolute Auto 100 /uL (0-100); Basophils Percent Auto 1.2 % (0-2); Eosinophils Absolute Auto 100 /uL (0-450); Eosinophils Percent Auto 0.8 % (2-4); Hematocrit 31.4 % (36-46); Hemoglobin 10.5 g/dL (12.0-16.0); Lymphocytes Absolute Auto 1900 /uL (1100-4500); Mean Corpuscular HGB Conc 33.4 % (30-36); Mean Corpuscular Volume 98.9 fL (80-100); Monocytes Absolute Auto 900 /uL (0-900); Monocytes Percent Auto 9.8 % (3-14); Neutrophils Absolute Auto 6100 /uL (1500-7000); Neutrophils Percent Auto 67.2 % (50-75); Platelet Count 245 X10^3/uL (150-400); Red Blood Cell Count 3.18 X10^6/uL (4.0-5.2); Red Cell Distribution Width 13.2 % (11.6-14.8)
[2018-12-18 06:39] LABS: HEMOLYSIS 24 (0-50)
[2018-12-18 06:43] LABS: BUN Creatinine Ratio 13.3 (6-22); Blood Urea Nitrogen 8 mg/dL (7-17); Calcium 8.6 mg/dL (8.4-10.2); Carbon Dioxide 30 mmol/L (22-32); Chloride 100 mmol/L (98-107); Estimated Glomerular Filt Rate > 60.0 mL/min (>60); Glucose 98 mg/dL (80-110); Magnesium 2.1 mg/dL (1.6-2.3); Sodium 136 mmol/L (137-145)
[2018-12-18 06:52] LABS: Potassium 4.4 mmol/L (3.4-5.1)
[2018-12-18] MEDS: LEVOTHYROXINE 25 MCG TABLET PO (07:37)
[2018-12-18 07:45] VITALS: O2SAT 97
--- NOTE | 2018-12-18 07:45 | PM.PNPO.1 ---
Subjective Date Patient Seen: 12/18/18 Time Patient Seen: 07:45 Interval history: Hospital day 4, postop day 3 following right hip femoral neck fracture with hemiarthroplasty by Dr. Brar. Patient also had a right anterior shoulder dislocation with subsequent greater tuberosity fracture mildly displaced. She is using sling for right arm with 90/90 degree external rotation and AB duction of shoulder. Weightbearing as tolerated to right leg. Patient using side walker. She is anticipating going to SNF for at care before going home. Pain has been improving. Using limited amount of [place]. Exam Vital Signs (past 8 hours): - 12/17/18 23:51 12/18/18 06:00 Temperature 98.8 F 98.5 F Pulse Rate 88 97 H Respiratory Rate 16 16 Blood Pressure 159/55 H 149/78 H Pulse Oximetry 95 95 Oxygen Delivery Method Room Air Oxygen Flow Rate 0 Narrative Exam Narrative: Alert, oriented no acute distress resting in bed. Right arm. Arm and sling. Mild ecchymosis to upper arm. Mild tenderness to shoulder area. Right leg. Aquacel dressing to right hip is dry without drainage or inflammation. Good pulses and distal. Objective Labs Result Diagrams: 12/18/18 06:15 12/18/18 06:15 Labs: Laboratory Results - last 24 hr 12/17/18 12/17/18 12/18/18 12:47 12:47 06:15 WBC 10.7 9.0 RBC 3.18 L 3.18 L Hgb 10.5 L 10.5 L Hct 31.3 L 31.4 L MCV 98.5 98.9 MCH 33.0 33.0 MCHC 33.5 33.4 RDW 13.4 13.2 Plt Count 235 245 Neut % (Auto) 75.0 67.2 Lymph % (Auto) 15.3 L 21.0 L [place] % (Auto) 8.6 9.8 Eos % (Auto) 0.4 L 0.8 L Baso % (Auto) 0.7 1.2 Neut # (Auto) 8000 H 6100 Lymph # (Auto) 1600 1900 [place] # (Auto) 900 900 Eos # (Auto) 0 100 Baso # (Auto) 100 100 Sodium 133 L Potassium 4.2 Chloride 99 Carbon Dioxide 27 BUN 10 Creatinine 0.70 Estimated GFR > 60.0 BUN/Creatinine Ratio 14.3 Glucose 112 H Calcium 8.6 Magnesium 1.8 12/18/18 06:15 WBC RBC Hgb Hct MCV MCH MCHC RDW Plt Count Neut % (Auto) Lymph % (Auto) [place] % (Auto) Eos % (Auto) Baso % (Auto) Neut # (Auto) Lymph # (Auto) [place] # (Auto) Eos # (Auto) Baso # (Auto) Sodium 136 L Potassium 4.4 Chloride 100 Carbon Dioxide 30 BUN 8 Creatinine 0.60 Estimated GFR > 60.0 BUN/Creatinine Ratio 13.3 Glucose 98 Calcium 8.6 Magnesium 2.1 Assessment & Plan Post-op Postoperative Procedures Operation Date: 12/15/18 17:00 Actual Procedures Side Surgeon p Hip Hemiarthroplasty Right Iraj Brar MD Plan: Patient will continue with the right hip precautions x6 weeks postop with weight-bearing as tolerated. Continue with right arm sling with limited range of motion as noted above. She will need postop visit at 2 weeks postop at the orthopedic office in [place]. She will need x-ray of right shoulder and right hip and dressing removal. Patient will be discharged pending clearance by hospitalist. Quality VTE Deep Vein Thrombosis/Pulmonary Embolism Present on Admission: No
--- NOTE | 2018-12-18 07:46 | PM.DS.1 ---
History of Present Illness Date Patient Seen: 12/15/18 Chief complaint: Fall x1 week ago Narrative: Written by Susan LAI: Dionna Yao is a pleasant 78 y.o. female with hypertension, hyperlipidemia and hypothyroidism who was in her usual state of health when on December 08, she was at the [place] being shown from the exit area sliding doors to a new parking garage when her foot or shoe caught on the carpet. She twisted around, falling on her right side hitting her face and shoulders. She was assessed at [facility] in [place] and they diagnosed her with a dislocated right shoulder and reduced it. She was discharged with a shoulder sling. This past Tuesday, she saw Dr. Bush who repeated her shoulder xray, reviewed the hip xray and noted she had fractured it. They discussed the need to stabilize the hip with a pinning procedure, and it became more progressively painful to the point of being unable to bear weight on it or walk. She lives with a male partner in his 80s who had been assisting her from her bed to the toilet, but the pain worsened to the point, she decided to come to the Ed here at [place]. While she endorses hip pain and mild shoulder discomfort, she denies shortness of breath, palpitations, chest pain, n/v, abdominal pain, dysurea, diarrhea or constipation, wounds or rashes, neuropathies. Patient has been previously worked up for syncope in 2018 and eventually diagnosed with anxiety. She underwent stress testing, a Holter study and spent one day in observation for a chest pain rule out which turned out to be negative. She currently takes lisinopril for blood pressure and atorvastatin for hyperlipidemia. 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 Discharge Providers Date of admission: 12/15/18 02:05 Discharge Date: 12/18/18 Primary care physician: Ashley Vergara PA-C Consults: 12/15/18 01:36 Consult to Orthopedic Surgery Stat Comment: Consulting Provider: Iraj Brar Reason for consultation: right femoral neck Has provider been notified: Yes 12/15/18 02:37 Consult to Physician Routine Comment: Consulting Provider: Rubio Bush Reason for consultation: right femoral neck fracture Has provider been notified: Yes 12/15/18 20:07 Consult to Discharge Planning Routine Comment: Consult to Physical Therapy Evaluate & Treat Comment: Physician Instructions: post op ELIESER protocol 12/16/18 10:34 Consult to Occupational Therapy Evaluate & Treat Comment: Physician Instructions: Evaluate and treat 12/16/18 10:35 Consult to Physical Therapy Evaluate & Treat Comment: PARISH pt is to be nonweight bearing Physician Instructions: Evaluate and Treat Discharge provider: Yane Ley DO Summary Discharge Diagnosis: 1. Right pathological hip fracture, status post right hemiarthroplasty, present on admission. Resolved. 2. Acute blood loss anemia, present on admission. Stable. 3. Acute leukocytosis, secondary to stress response from hip fracture, not present on admission. Resolved. 4. Hypertension, chronic, present on admission. Stable. 5. Hyperlipidemia, chronic, present on admission. Stable. 6. Hypothyroidism, chronic, present on admission. Stable. Hospital Course: Dionna Yao is a pleasant 78-year-old female with a past medical history significant for hypertension, hyperlipidemia and hypothyroidism who presented after ground level fall with right hip fracture status post hemiarthroplasty and need for continued rehabilitation. 1. Right pathological hip fracture, status post right hemiarthroplasty, present on admission. Resolved. -Patient presented after ground level fall with right hip pain and inability to walk/bear weight. -Right hip x-ray demonstrated subcapital right femoral neck fracture. -Consulted Orthopedic surgery who performed right hemiarthroplasty. Continued postoperative and pain management per Orthopedic surgery. We appreciate their time and care of the patient. -Continued physical and occupational therapy. -Recommend continued vitamin D3 and calcium supplementation. Discontinued Fosamax. Recommended Endocrinology evaluation outpatient in 1-2 months after full recovery from hip fracture. 2. Acute blood loss anemia, present on admission. Stable. -Secondary to right hemiarthroplasty. -Hemoglobin and hematocrit stable. Continued to monitor CBC daily. 3. Acute leukocytosis, secondary to stress response from hip fracture, not present on admission. Resolved. -No clinical evidence of infection. 4. Hypertension, chronic, present on admission. Stable. -Continued home lisinopril 20 mg daily. 5. Hyperlipidemia, chronic, present on admission. Stable. -Continued home atorvastatin 10 mg daily. 6. Hypothyroidism, chronic, present on admission. Stable. -Continued home levothyroxine 25 mcg daily. Status at Discharge Functional status at discharge: uses cane/walker Overall status at discharge: patient is progressing back to baseline Exam Vital Signs (past 8 hours): - 12/17/18 23:51 12/18/18 06:00 Temperature 98.8 F 98.5 F Pulse Rate 88 97 H Respiratory Rate 16 16 Blood Pressure 159/55 H 149/78 H Pulse Oximetry 95 95 Oxygen Delivery Method Room Air Oxygen Flow Rate 0 Narrative Exam Narrative: General: Older female sitting in bedside chair and in no acute distress, well-developed, well-nourished, appropriately interactive. HEENT: Normocephalic, atraumatic. External ears without defect. Pupils equal, round, and reactive to light. Anicteric sclerae, moist conjunctivae, and no lid lag. Neck: Supple with full range of motion. No lymphadenopathy or thyromegaly. Cardiovascular: Regular rate and rhythm without murmurs, rubs, or gallops appreciated. Pulmonary: Clear to auscultation bilaterally without crackles, wheezes, or rhonchi. Normal respiratory effort without use of accessory muscles. Abdomen: Soft, bowel sounds present, nontender, nondistended. No hepatosplenomegaly or masses appreciated. Extremities: No clubbing, cyanosis, or edema. Right upper extremity in sling with limited range of motion, right hip with dressing in place C/D/I without surrounding erythema or edema. Skin: Normal temperature, turgor, and texture; no rash, ulcers, or subcutaneous nodules appreciated. Neurological: Cranial nerves grossly intact. Psychiatric: Normal mood, mildly anxious, and normal affect. Alert and oriented to person, place, and time. Objective Labs Result Diagrams: 12/18/18 06:15 12/18/18 06:15 Labs: Laboratory Results - last 24 hr 12/17/18 12/17/18 12/18/18 12:47 12:47 06:15 WBC 10.7 9.0 RBC 3.18 L 3.18 L Hgb 10.5 L 10.5 L Hct 31.3 L 31.4 L MCV 98.5 98.9 MCH 33.0 33.0 MCHC 33.5 33.4 RDW 13.4 13.2 Plt Count 235 245 Neut % (Auto) 75.0 67.2 Lymph % (Auto) 15.3 L 21.0 L [place] % (Auto) 8.6 9.8 Eos % (Auto) 0.4 L 0.8 L Baso % (Auto) 0.7 1.2 Neut # (Auto) 8000 H 6100 Lymph # (Auto) 1600 1900 [place] # (Auto) 900 900 Eos # (Auto) 0 100 Baso # (Auto) 100 100 Sodium 133 L Potassium 4.2 Chloride 99 Carbon Dioxide 27 BUN 10 Creatinine 0.70 Estimated GFR > 60.0 BUN/Creatinine Ratio 14.3 Glucose 112 H Calcium 8.6 Magnesium 1.8 12/18/18 06:15 WBC RBC Hgb Hct MCV MCH MCHC RDW Plt Count Neut % (Auto) Lymph % (Auto) [place] % (Auto) Eos % (Auto) Baso % (Auto) Neut # (Auto) Lymph # (Auto) [place] # (Auto) Eos # (Auto) Baso # (Auto) Sodium 136 L Potassium 4.4 Chloride 100 Carbon Dioxide 30 BUN 8 Creatinine 0.60 Estimated GFR > 60.0 BUN/Creatinine Ratio 13.3 Glucose 98 Calcium 8.6 Magnesium 2.1 Discharge Plan Discharge Plan Patient Disposition: SNF Transfer to: [facility] Transportation: Facility vehicle I certify the postop hospital halfway care is medically necessary on a continuing basis for any conditions for which he/ she received care during this hospitalization.: Yes The receiving facility has agreed to accept transfer and provide medical treatment.: Yes Discharge Med Rec/Prescriptions Prescriptions: New acetaminophen 325 mg Tablet 650 mg PO Q6HR PRN (Reason: As Needed For Fever/Mild Pain) Qty: 30 RF: 0 meloxicam [Mobic] 7.5 mg Tablet 15 mg PO 0800 Qty: 30 RF: 0 docusate sodium [DOK] 100 mg Capsule 100 mg PO DAILY PRN (Reason: Constipation) Qty: 30 RF: 0 hydrocodone-acetaminophen 5-325 mg Tablet 1 tab PO Q4HR PRN (Reason: Pain, Moderate (4-6)) Qty: 20 RF: 0 enoxaparin [Lovenox] 40 mg/0.4 mL Syringe 40 mg subcut DAILY Qty: 7 RF: 0 cholecalciferol (vitamin D3) 1,000 unit capsule 1,000 unit PO DAILY Qty: 30 RF: 0 calcium carbonate [Calcium 500] 500 mg calcium (1,250 mg) tablet 500 mg PO DAILY Qty: 30 RF: 0 Continued lisinopril [Prinivil] 20 MG tablet 20 mg PO QDAY Qty: 90 RF: 3 levothyroxine 25 mcg Tablet 25 mcg PO QDAY Qty: 0 RF: 0 acyclovir 400 mg tablet 400 mg PO QDAY Qty: 90 RF: 3 atorvastatin 10 mg tablet 10 mg PO DAILY RF: 0 escitalopram oxalate 20 mg tablet 20 mg PO DAILY RF: 0 omeprazole 40 mg capsule,delayed release(DR/EC) 40 mg PO DAILY RF: 0 Follow up/Referrals: Ashley Vergara PA-C [Primary Care Provider] - Iraj Brar MD [Physician] - 12/29/18 4:00 pm (*appt:12/29 @ 4:00 with physcian medical assistant ob gyn [facility]-please arrive 20 minutes prior to your appointment) Discharge Health Status Brief summary of current health status: Dionna Yao is a pleasant 78-year-old female with a past medical history significant for hypertension, hyperlipidemia and hypothyroidism who presented after ground level fall with right hip fracture status post hemiarthroplasty and need for continued rehabilitation. Provider Discharge Instructions Diet: Low-fat, Low-sodium and Low-cholesterol Activity: Activity as tolerated with weight bearing as tolerated on RLE with FWW/platform walker for RUE and PT/OT, may weight bear as tolerated on right upper extremity, avoid 90/90 external rotation abduction position [facility] Reason for rehabilitation: Post-operative therapy Rehab type: Physical therapy and Occupational therapy Discharge Data Primary Care Provider: Ashley Vergara Attending Provider: Susan Sellers Admyenny Date/Time: 12/15/18 02:05 Quality VTE Deep Vein Thrombosis/Pulmonary Embolism Present on Admission: No
[2018-12-18 08:08] VITALS: BP 148/67; PULSE 85; RESP 15; TEMP 36.8; O2SAT 97
[2018-12-18] MEDS: ESCITALOPRAM 10 MG TABLET 20 MG PO (08:13)
[2018-12-18] MEDS: ATORVASTATIN 10 MG TABLET PO (08:13)
[2018-12-18] MEDS: ACYCLOVIR 400 MG TABLET PO (08:14)
[2018-12-18] MEDS: ENOXAPARIN 40 MG/0.4 ML SYRINGE SUBCUT (08:16)
[2018-12-18] MEDS: LISINOPRIL 20 MG TABLET PO (08:16)
[2018-12-18] MEDS: MELOXICAM 7.5 MG TABLET 15 MG PO (08:19)
--- NOTE | 2018-12-18 10:38 | OT.IP.TRT ---
Current Diagnoses Unspecified fracture of upper end of right humerus, initial encounter for closed fracture (12/15/18) Unspecified intracapsular fracture of right femur, initial encounter for closed fracture (12/15/18) Surgery Performed Operation Date: 12/15/18 17:00 Actual Procedures p Hip Hemiarthroplasty(Right) - Iraj Brar MD Occupational Therapy Treatment Note M2 OT-IP Current Condition Start: 12/16/18 15:41 Freq: Status: Active Protocol: Document 12/16/18 15:42 CGR (Rec: 12/16/18 15:53 CGR [email or web address]) Occupational Therapy Current Condition Current Condition Evaluation Date 12/16/18 Treatment Diagnosis 12/15 R galina arthroplasty and recent dislocated R shld Weight Bearing Status Weight Bearing Status Non-Weight Bearing Allowed Weight Bearing Amount (enter % NWB to the R shld, WBAT to the or #) (%) RLE M3 OT- IP Subjective and Pain Start: 12/16/18 15:41 Freq: Status: Active Protocol: Document 12/18/18 10:36 CGR (Rec: 12/18/18 10:38 CGR [email or web address]) OT- Subjective Occupational Therapy Visit Type Type Administrative Note Notes Attempted to see pt for OT services. Pt going today to [facility] so held on shower to maintain endurance. Pt states she doesn't have clothing to change into for transfer. Nursing notified. No OT services performed. M4 OT- IP ADL's Start: 12/16/18 15:41 Freq: Status: Active Protocol: Document 12/16/18 15:42 CGR (Rec: 12/16/18 15:53 CGR [email or web address]) OT [id number] Comments OT Self-Feeding Comments Not meal time OT ADL-Grooming Comments OT Grooming Comments Not performed OT ADL-Oral Care Comments Oral Care Comments Not performed OT ADL-Dressing General Eval Lower Body Dressing Ability Total Assistance Areas Needing Assistance Socks OT ADL-Toileting Comments OT Toileting Comments Pt still with taylor OT ADL-Bathing Comments OT Bathing Comments Not appropriate at this time. M5 OT- IP IADL's Start: 12/16/18 15:41 Freq: Status: Active Protocol: Document 12/16/18 15:42 CGR (Rec: 12/16/18 15:53 CGR [email or web address]) OT-Instrumental Activities of Daily Living Deficits IADL Deficits Identified No Deficits Home Safety Awareness Awareness of Need for Assistance at Home Good Awareness Ability to Problem Solve Emergency Able to Problem Solve Situations Medication Management Medication Management No Deficits Identified Money Management Money Management No Deficits Identified Meal Preparation Meal Preparation Caregiver Provides Assist Securities Supervisor Securities Supervisor Caregiver Provides Assist Driving Driving Caregiver Provides Assist M6 OT- IP Functional Cognition Start: 12/16/18 15:41 Freq: Status: Active Protocol: Document 12/16/18 15:42 CGR (Rec: 12/16/18 15:53 CGR [email or web address]) Cognitive Factors Limiting Selfcare Function Cognitive Ability Level of Alertness Alert Patient Orientation Name Age Birthday Month Date Year Day of Week Place Situation Attention Span Ability Capable of Focused Attention Capable of Sustained Attention Ability to Follow Commands Able to Follow Multi-Step Commands Memory Description No Deficits Noted Safety Awareness No Deficits Noted Problem Solving Ability No deficits Noted Executive Function Ability No Deficits Noted Abstract Thinking Ability No Deficits Noted OT- Vision and Hearing OT- Hearing Assessment OT- Hearing Assessment WFL OT- Vision Assessment Visual Acuity WFL Visual Attentiveness WFL Occular Pursuits WFL Visual Convergence WFL Visual Osei WFL M7 OT- IP Mobility and Balance Start: 12/16/18 15:41 Freq: Status: Active Protocol: Document 12/16/18 15:42 CGR (Rec: 12/16/18 15:53 CGR [email or web address]) OT- Bed Mobility Assessment Rolling Level of Assistance Minimal Assistance Head of Bed Elevated Bedrails Supine to Sit Supine to Sit Assist Minimal Assistance Head of Bed Elevated Bedrails Sit to Supine Sit to Supine Assist Total Assistance 1 Person Assistance Head of Bed Elevated Scooting Scooting to Edge of Bed Minimal Assistance Head of Bed Elevated Bedrails Scooting Up and Down in Bed Standby Assistance OT-Transfer Assessment Comments Mobility Comments Unable OT- Gait Assessment Comments Gait Ability Comments Not performed OT- Balance Assessment Sitting Balance and Reactions Static Sitting Balance Ability Normal Dynamic Sitting Balance Ability Good M8 OT- IP Objective Assessments Start: 12/16/18 15:41 Freq: Status: Active Protocol: Document 12/16/18 15:42 CGR (Rec: 12/16/18 15:53 CGR [email or web address]) OT Gross Range of Motion Upper Extremity Range of Motion Assessment Right Impaired OT Strength Upper Extremity Strength Assessment Within Functional Limits Comments Strength Comments R shld and arm not tested d/t recent dislocation. OT- Coordination Assessment Upper Extremity Finger to Nose Test Within Functional Limits Finger Tapping Test Within Functional Limits OT-Muscle Tone Assessment Muscle Tone WNL Yes OT Sensation Assessment Comments Summary Comments No deficits per pt report Edema Edema Present Edema Comments To TWILA Garcia OT- IP Assessment and Plan Start: 12/16/18 15:41 Freq: Status: Active Protocol: Document 12/16/18 15:42 CGR (Rec: 12/16/18 15:53 CGR [email or web address]) OT Summary Assessment and Plan Potential Rehabilitation Potential Excellent Analytic Complexity at Evaluation Moderate Summary OT Impairments Pain Range of Motion Strength Functional Mobility Grooming Dressing Toileting Bathing Toilet Transfers Shower Transfers Progress Towards Goals Progressing Toward Goals Assessment Summary Pt presents as a moderate complexity evaluation s/p recent fall with R shld dislocation, since reduced and in sling, and R hip fx since fixed with a galina arthroplasty on 12/15. Pt is highly motivated and but current barrier is what appears to be anxiety/panic attacks with vasovagal reactions where the pt will pass out if not reclined. Pt will benefit from continued therapy for mobility and ADLs. Discussed at length anxiety and ways to assist with preventing syncopal episodes. Pt is receptive. She will likely need rehab upon discharge. Goals Grooming Goal Independent Dressing Goal Independent Software Development Analyst Sock Aid Toileting Goal Independent Bathing Goal Independent Toilet Transfer Goal Independent Shower Transfer Goal Independent Days to Meet Goals 10 Frequency of Treatment Frequency Of Treatment Once a Day Treatment Plan OT Treatment Plan ADL Training Functional Mobility Patient/Family Education Discharge Planning Discharge Recommendations OT Discharge Recommendations SNF Rehab
--- NOTE | 2018-12-18 10:50 | CM.DPC ---
DCP: continued: Case discussed in Team Rounds and Dr. Ley confirmed pt would be ready for d/c today. Ortho VIVI Clark agrees. Orders are now finalized and have been faxed to [facility]/Katie: w/c van is set to pick pt up at 1400. PASRR: reviewed and faxed to [facility]. Placed to SNF packet. Given to [facility] to scan. YESENIA#2: presented to pt this mornin and she did resign. She says she is comfortable with the d/c today and hopes for a short rehab stay before home. She is aware that the room will not be private and says that she did not wish to pay the extra $375/day that this would have entailed. She notes: this will just spur me on to rehab faster!. KIM Marquis is updated. YESENIA document given to [facility] to scan.
[2018-12-18 12:53] VITALS: BP 146/64; PULSE 85; RESP 15; TEMP 36.5; O2SAT 95
--- NOTE | 2018-12-18 13:03 | PT-IP ANOTE ---
Pt is discharging to SNF in 1 hour, will sign off.
[2018-12-18] MEDS: HYDROCODONE/ACET 5/325 TABLET 1 TAB PO (13:13)
--- NOTE | 2018-12-18 14:13 | PC.NURSE ---
Day shift: Pt left unit via w/ [facility] person at approx 1415. Paperwork and MD scrips in SNF packet. Pt has all personal belongings. Report given to [facility] KIM Coppola. All questions answered.
== END 2018-12-18 14:16 | DRG 470 ==
LOC: ED 00:16 → AC 02:06
PROVIDERS: Internal Medicine; Orthopaedic Surgery; Admitting Provider Nurse Practitioner Family; Emergency Provider Emergency Medicine; PCP Physician Assistant; Visit Provider Nurse Practitioner Family
PROC: 0SRR0JZ Replacement of Right Hip Joint, Femoral Surface with Synthetic Substitute, Open Approach (ICD-10-PCS; CPT 27125; principal; 2018-12-15 17:00)
DX: M84.451A Pathological fracture, right femur, initial encounter for fracture (principal); D62 Acute posthemorrhagic anemia; M85.88 Other specified disorders of bone density and structure, other site; M85.80 Other specified disorders of bone density and structure, unspecified site; I10 Essential (primary) hypertension; E78.5 Hyperlipidemia, unspecified; E03.9 Hypothyroidism, unspecified; W01.0XXA Fall on same level from slipping, tripping and stumbling without subsequent striking against object, initial encounter; Y92.59 Other trade areas as the place of occurrence of the external cause; K21.9 Gastro-esophageal reflux disease without esophagitis
CPT/HCPCS: 36415; 36591; 51701; 72170; 73502; 80048; 80053; 83735; 85025; 86850; 86900; 86901; 94760; 94762; 96374; 96376; 97110; 97116; 97162; 97166; 97530; 99282; 99284; C1776; J0171; J0690; J1100; J1170; J1650; J2270; J2405; J2704; J3010

== ENCOUNTER → 2019-05-21 09:28 | Outpatient (CLI) | payer MEDICARE, BC, SELFPAY ==
[2018-12-15 03:39] VITALS: BMI 22.5
--- NOTE | 2019-05-21 | DI.MG.S_ITS ---
UNILATERAL LEFT DIGITAL DIAGNOSTIC MAMMOGRAM 3D/2D SHORT-TERM FOLLOW-UP: 05/21/2019 CLINICAL: Patient returns for a 6 month follow up of the left breast. Comparison is made to exams dated: 11/15/2018 mammogram, 10/30/2018 mammogram, 09/30/2017 mammogram, and 09/19/2017 mammogram - [facility]. The tissue of left breast is heterogeneously dense. This may lower the sensitivity of mammography. Previously identified grouped punctate calcifications in the left breast (described as being in the left breast at 10 o'clock anterior depth on comparison screening mammogram of 10/30/18 and central to the nipple anterior depth on comparison diagnostic mammogram of 11/15/18 but localizing closer to the inferior medial left breast near central to the nipple on additional views today 05/21/19) remain stable in appearance to comparison exam of 11/15/18. IMPRESSION: PROBABLY BENIGN Previously identified grouped punctate calcifications in the left breast remain stable in appearance to comparison exam of 11/15/18. A follow-up mammogram in 6 months is recommended to demonstrate stability. The patient was advised to monitor her breasts and to return sooner for reevaluation if she feels anything grow or change in her breasts. This exam was interpreted at Station ID: [id number]. NOTE: For mammograms, a report in lay terms will be sent to the patient. Approximately 15% of breast malignancies will not be visualized mammographically. In the management of a palpable breast mass, a negative mammogram must not discourage biopsy of a clinically suspicious lesion. Electronically Signed By: Raymundo Ag M.D. ecl/:05/21/2019 10:18:56 copy to: Brina Coulter letter sent: Followup Recommended ACR BI-RADS Category 3: Probably benign [id number]
== END ==
PROVIDERS: PCP Physician Assistant; Visit Provider Physician Assistant
DX: R92.8 Other abnormal and inconclusive findings on diagnostic imaging of breast (principal); R92.1 Mammographic calcification found on diagnostic imaging of breast; M81.0 Age-related osteoporosis without current pathological fracture; Z78.0 Asymptomatic menopausal state; E07.9 Disorder of thyroid, unspecified; Z90.722 Acquired absence of ovaries, bilateral; Z82.62 Family history of osteoporosis
CPT/HCPCS: 77065; 77080; G0279

== ENCOUNTER → 2019-05-28 11:04 | Outpatient (CLI) | payer MEDICARE, BC, SELFPAY ==
[2018-12-15 03:39] VITALS: BMI 22.5
--- NOTE | 2019-05-28 11:07 | DI.RAD.S_ITS ---
PROCEDURE: XR HAND LT MIN 3V INDICATIONS: Injury due to fall TECHNIQUE: Mild to moderate degenerative osteoarthritis at the distal interphalangeal joints but no trauma found. views of the hand(s) acquired. COMPARISON: None. FINDINGS: Bones: No fractures or dislocations. Carpal bones are normally aligned. No suspicious bony lesions. Soft tissues: No suspicious soft tissue calcifications. IMPRESSION: Osteoarthritis without trauma. Dictated by: Matt Renae M.D. on 05/28/2019 at 13:01 Approved by: Matt Renae M.D. on 05/28/2019 at 13:01
--- NOTE | 2019-05-28 11:07 | DI.RAD.S_ITS ---
PROCEDURE: XR ELBOW LT MIN 3V INDICATIONS: Injury due to fall TECHNIQUE: 3 views of the elbow were acquired. COMPARISON: None. FINDINGS: Bones: No fractures or dislocations. No suspicious bony lesions. Soft tissues: No elbow joint effusion. No suspicious soft tissue calcifications. IMPRESSION: No trauma found. Dictated by: Matt Renae M.D. on 05/28/2019 at 13:01 Approved by: Matt Renae M.D. on 05/28/2019 at 13:02
--- NOTE | 2019-05-28 11:07 | DI.RAD.S_ITS ---
PROCEDURE: XR WRIST LT MIN 3V INDICATIONS: Injury due to fall TECHNIQUE: 4 views of the wrist were acquired. COMPARISON: None. FINDINGS: Bones: No fractures or dislocations. No suspicious bony lesions. Scaphoid view: No trauma the scaphoid is found. Note is made of radiocarpal and first carpal-metacarpal articulation degenerative disc disease that is moderate in severity. Soft tissues: No suspicious soft tissue calcifications. IMPRESSION: Degenerative osteoarthritis as discussed with no definite acute trauma found. The degenerative changes could obscure visualization of an acute fracture and depending on the clinical status of unusual symptomatology persists followup by delayed plain film imaging may be warranted. Dictated by: Matt Renae M.D. on 05/28/2019 at 14:37 Approved by: Matt Renae M.D. on 05/28/2019 at 14:39
--- NOTE | 2019-05-28 11:07 | DI.RAD.S_ITS ---
PROCEDURE: XR FOREARM RT 2V INDICATIONS: Injury due to fall TECHNIQUE: 2 views of the forearm were acquired. COMPARISON: None. FINDINGS: Bones: No fractures or dislocations. No suspicious bony lesions. Soft tissues: No suspicious soft tissue calcifications or masses. IMPRESSION: No trauma found. Dictated by: Matt Renae M.D. on 05/28/2019 at 13:02 Approved by: Matt Renae M.D. on 05/28/2019 at 13:02
== END ==
PROVIDERS: Family Provider Physician Assistant; PCP Physician Assistant; Visit Provider Physician Assistant
DX: S59.912A Unspecified injury of left forearm, initial encounter (principal); M79.602 Pain in left arm; M25.532 Pain in left wrist; M25.522 Pain in left elbow; M19.042 Primary osteoarthritis, left hand; M18.12 Unilateral primary osteoarthritis of first carpometacarpal joint, left hand; W19.XXXA Unspecified fall, initial encounter
CPT/HCPCS: 73080; 73090; 73110; 73130

== ENCOUNTER → 2019-11-19 12:31 | Outpatient (CLI) | payer MEDICARE, BC, SELFPAY ==
[2018-12-15 03:39] VITALS: BMI 22.5
--- NOTE | 2019-11-19 | DI.MG.S_ITS ---
BILATERAL DIGITAL DIAGNOSTIC MAMMOGRAM 3D/2D SHORT-TERM FOLLOW-UP: 11/19/2019 CLINICAL: Short follow up, due bilaterally. Comparison is made to exams dated: 05/21/2019 mammogram, 11/15/2018 mammogram, 10/30/2018 mammogram, 09/30/2017 mammogram, and 09/19/2017 mammogram - [facility]. The tissue of both breasts is heterogeneously dense. This may lower the sensitivity of mammography. Redemonstration of the grouped punctate calcifications in the left breast central to the nipple anterior depth. These are not significantly changed. No other significant masses, calcifications, or other findings are seen in either breast. IMPRESSION: There is no mammographic evidence of malignancy. The grouped punctate left breast calcifications have been stable for over two years time and are consistent with a benign process. Return to annual mammogram screening schedule is recommended. Findings and recommendations were conveyed with the patient during today's visit. This exam was interpreted at Station ID: [id number]. NOTE: For mammograms, a report in lay terms will be sent to the patient. Approximately 15% of breast malignancies will not be visualized mammographically. In the management of a palpable breast mass, a negative mammogram must not discourage biopsy of a clinically suspicious lesion. Electronically Signed By: Lane Bettencourt M.D. aty/:11/19/2019 13:16:32 copy to: Brina Coulter letter sent: Normal Exam ACR BI-RADS Category 2: Benign Finding(s) 3342F
== END ==
PROVIDERS: Family Provider Physician Assistant; PCP Physician Assistant; Referring Provider Physician Assistant; Visit Provider Physician Assistant
DX: R92.8 Other abnormal and inconclusive findings on diagnostic imaging of breast (principal); R92.1 Mammographic calcification found on diagnostic imaging of breast
CPT/HCPCS: 77066; G0279